=== PATIENT | male | born 1945 | race Caucasian/White ===

== ENCOUNTER 2024-09-29 05:54 | Inpatient (IN) | payer OTHER, SELFPAY ==
[2024-09-29] VITALS (12 sets, daily range): BP systolic 143–203; BP diastolic 77–98; PULSE 63–87; RESP 15–22; TEMP 36.3–36.6; O2SAT 95–100; BMI 31.4
--- NOTE | ~2024-09-29 | MR_ITS ---
EXAMINATION: MR brain/brain stem wo/w con DATE: 09/29/2024 13:59 INDICATION: Unsteady gait TECHNIQUE: Magnetic resonance imaging (MRI) of the brain and brainstem was performed without and with 20 mL Multihance intravenous contrast. Sequences included sagittal and axial T1-weighted SE, axial d iffusion-weighted FS SE, , axial T2-weighted FLAIR, and axial T2-weighted FSE. Postcontrast axial and coronal T1-weighted SE was obtained. Apparent diffusion coefficient (ADC) maps were created. COMPARISON: None. FINDINGS: There are no areas of restricted diffusion to suggest acute infarction. 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 No intracranial hemorr francine or abnormal intracranial mass lesion. There are scattered areas of nonspecific increased T2-weig hted signal intensity in the mark and cerebral white matter, predominantly involving the deep and per iventricular white matter. There are no intraparenchymal signal abnormalities seen on the other pulse sequences. There is symmetric enlargement of the left and right lateral ventricles particularly the occipital horns which is disproportionate to the mild symmetric enlargement of the sulci which could represent central predominant age-related atrophy although differential includes normal pressure hydr ocephalus. There are no abnormal extra-axial fluid collections. Flow voids are seen in the cerebral a rteries on the T2-weighted sequences consistent with their expected patency. Mucosal thickening versu s mucous retention cyst along the floor of both the left and right maxillary sinuses. Visualized orbi ts and soft tissues are unremarkable. There are no areas of abnormal enhancement on the post contrast images. IMPRESSION: 1. 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 2. Symmetric enlargement of the left and right lateral ventricles relative to the sulci which could b e due to central predominant age-related atrophy or normal pressure hydrocephalus (NPH: clinical tria d ataxia/gait disturbance, dementia, urinary incontinence). Reviewed, dictated and finalized at location A. [facility] IMPRESSION: 1. 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 2. Symmetric enlargement of the left and right lateral ventricles relative to t he sulci which could be due to central predominant age-related atrophy or funmi l pressure hydrocephalus (NPH: clinical triad ataxia/gait disturbance, dementia, urinary incontinence).
--- NOTE | ~2024-09-29 | XR_ITS ---
EXAMINATION: XR chest 1V DATE: 09/29/2024 06:25 INDICATION: Fall TECHNIQUE: frontal view of the chest was obtained. COMPARISON: None FINDINGS: Lung volumes are small. Mild airspace opacities scattered throughout both lungs most prominent at the right upper and bilateral lower lung zones which could represent atelectasis or pneumonia. Heart siz e is within normal limits for AP technique. Small calcification projected over the right upper quadra nt which could represent gallstones, cholecystectomy clips or renal stone. There is mild thoracic spo ndylosis. IMPRESSION: 1. Small lung volumes with scattered mild opacities which could represent atelectasis or pneumonia. 2. Gallstone, renal stone or cholecystectomy clips project over the right upper quadrant. Reviewed, dictated and finalized at location A. HANDLER IMPRESSION: 1. Small lung volumes with scattered mild opacities which could represent atele ctasis or pneumonia. 2. Gallstone, renal stone or cholecystectomy clips project over the right upper quadrant.
--- NOTE | ~2024-09-29 | US_ITS ---
EXAMINATION: US renal BI DATE: 09/29/2024 16:32 INDICATION: renal failure TECHNIQUE: Multiple grayscale and Doppler ultrasound images of the kidneys were obtained. COMPARISON: None. FINDINGS: The right kidney measures 9.3 x 4.6 x 4.2 cm. The left kidney measures 11.1 x 5.0 x 4.6 cm. The kidne ys demonstrate normal parenchymal echogenicity. Simple appearing 4.0 cm right upper pole cyst. Simple appearing 1.1 cm left mid/lower pole cyst. There is no hydronephrosis. The bladder is normal. IMPRESSION: Unremarkable renal sonogram findings. Reviewed, dictated and finalized at location [facility] [employer]
--- NOTE | ~2024-09-29 | CT_ITS ---
EXAMINATION: CT brain wo con DATE: 09/29/2024 06:16 INDICATION: Weakness TECHNIQUE: Computed tomography (CT) of the head was performed without intravenous contrast. Sagittal and coronal reconstructions were performed. The mA was adjusted according to patient size. Iterative reconstruction technique was employed. The dose-length product was 983.67 mGy-cm. COMPARISON: None FINDINGS: There are couple small foci of encephalomalacia in the right frontal and parietal lobes consistent wi th old infarcts. No acute intracranial hemorrhage, acute infarction or abnormal extra axial fluid col lection. There is moderate scattered white matter hypoattenuation consistent with chronic small vesse l ischemic disease. Symmetric prominence of the sulci and ventricles consistent with moderate age-alan ropriate diffuse cerebral volume loss. Ventricles are normal and symmetric. No mass/mass effect. The orbits, paranasal sinuses and mastoid air cells are normal. IMPRESSION: 1. 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 2. Age-related changes including moderate diffuse volume loss and moderate scattered white matter hyp oattenuation consistent with chronic small vessel ischemic disease. Reviewed, dictated and finalized at location A. [employer] IMPRESSION: 1. 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 2. Age-related changes including moderate diffuse volume loss and moderate scat tered white matter hypoattenuation consistent with chronic small vessel ischemi c disease.
--- NOTE | 2024-09-29 05:48 | ECG_ITS ---
Test Date: 2024-09-29 05:55:36 Measurements Intervals [place] Rate: 73 P: 43 DC: 196 QRS: -43 QRSD: 169 T: 24 QT: 426 QTc: 473 Interpretive Statements SINUS RHYTHM MARKED LEFT AXIS DEVIATION [QRS AXIS < -30] RIGHT BUNDLE BRANCH BLOCK [120+ ms QRS DURATION, UPRIGHT V1, 40+ ms S IN I/aVL/V4/V5/V6] No previous ECG available for comparison Electronically Signed On 09-29-2024 09:00:20 CLINICAL SUPPORT TECH by Jared Mensah M.D.
--- NOTE | 2024-09-29 05:50 | ED.WEAKNESS ---
HPI - Weakness General Chief complaint: Weakness <Toy Tamayo MD - Last Filed: 09/29/24 07:54> Stated complaint: INCONTINENT X 1, WEAKER THAN NORMAL <Toy Tamayo MD - Last Filed: 09/29/24 07:54> History of Present Illness HPI Narrative: 79-year-old male with a past medical history including dementia, previous TIA versus CVA with reported previous deficits. He has a history of hypertension GERD. On multiple medications for dementia and hypertension. Presents to the emergency department today as he was feeling generalized weakness and more weak than normal. He also had an episode of incontinence while trying to get up to go the bathroom. States he fell down but did not hit his head after the incontinence episode. Not taking any blood thinner medications. No reported unilateral weakness or stroke-like symptoms according to EMS report, NIH stroke scale 0 upon initial assessment by EMS and by myself and nursing staff upon arrival to the ED. patient is awake alert oriented answering all questions appropriately in and as baseline mentation which is A&O x4. He has no evidence of trauma, otherwise appears well not any acute distress. Denies any chest pain, shortness a breath, vision changes. Endorses a mild headache. <Toy Tamayo MD - Last Filed: 09/29/24 07:54> Related Data Allergies/Adverse reactions: Allergies Allergy/AdvReac Type Severity Reaction Status Date / Time No Known Allergies Allergy Verified 09/29/24 06:14 <Toy Tamayo MD - Last Filed: 09/29/24 07:54> Review of Systems Review of Systems: As reviewed above in HPI <Toy Tamayo MD - Last Filed: 09/29/24 07:54> Exam Narrative: GENERAL: [Well-appearing, well-nourished, and in no acute distress.] HEAD: [Normocephalic, atraumatic.] EYES: [PERRLA and EOMI.] ENT: Nares clear, no rhinorrhea or epistaxis. Mucous membranes moist. NECK: Supple. CHEST: [Clear to auscultation. No respiratory distress.] HEART: [Regular rate and rhythm]. No murmur heard. [Normal peripheral pulses.] ABDOMEN: [Soft, nondistended], [nontender], [No rigidity or guarding] EXTREMITIES: Normal range of motion. [No edema.] SKIN: Warm, dry, no rash. NEURO: No facial asymmetries, no ataxia, no mental status changes alert x4, full strength and sensations are both arms, symmetric weakness throughout both legs. Able to plantar and dorsiflex with full strength. Extraocular movements are full, no nystagmus. PSYCH: [Normal mood and affect.] <Toy Tamayo MD - Last Filed: 09/29/24 07:54> Course Vital Signs Vital signs: Vital Signs Temperature 36.6 C 09/29/24 05:41 Pulse Rate 87 09/29/24 05:41 Respiratory Rate 22 H 09/29/24 05:41 Blood Pressure 203/98 H 09/29/24 05:41 Pulse Oximetry 99 09/29/24 05:41 Oxygen Delivery Room Air 09/29/24 05:41 Temperature 36.6 C 09/29/24 05:41 Pulse Rate 79 09/29/24 08:32 Respiratory Rate 16 09/29/24 08:32 Blood Pressure 170/85 H 09/29/24 08:32 Pulse Oximetry 98 09/29/24 08:32 Oxygen Delivery Room Air 09/29/24 05:47 <Toy Tamayo MD - Last Filed: 09/29/24 07:54> Vital Signs Temperature 36.6 C 09/29/24 05:41 Pulse Rate 87 09/29/24 05:41 Respiratory Rate 22 H 09/29/24 05:41 Blood Pressure 203/98 H 09/29/24 05:41 Pulse Oximetry 99 09/29/24 05:41 Oxygen Delivery Room Air 09/29/24 05:41 Temperature 36.6 C 09/29/24 05:41 Pulse Rate 79 09/29/24 08:32 Respiratory Rate 16 09/29/24 08:32 Blood Pressure 170/85 H 09/29/24 08:32 Pulse Oximetry 98 09/29/24 08:32 Oxygen Delivery Room Air 09/29/24 05:47 <Brien Ahumada MD - Last Filed: 09/29/24 09:14> Procedures Pulse Oximetry Interpretation Digit-Finger: Pulse Oximetry Interpretation Date: 09/29/24 <Toy Tamayo MD - Last Filed: 09/29/24 07:54> Pulse Oximetry Interpretation Time: 06:06 <Toy Tamayo MD - Last Filed: 09/29/24 07:54> Initial pulse oximetry readin <Toy Tamayo MD - Last Filed: 09/29/24 07:54> Pulse Oximetry: 100 <Toy Tamayo MD - Last Filed: 09/29/24 07:54> Actions Taken: none <Toy Tamayo MD - Last Filed: 09/29/24 07:54> MDM - Weakness MDM Narrative Medical decision making narrative: This is an 79-year-old male with a history of dementia, hypertension, previous TIA versus CVA. He called EMS today from his assisted living facility for complaint of generalized weakness more than usual and episode of incontinence. He states he was trying to get up to the bathroom and felt more weak and fell to the ground but did not lose consciousness. Incontinence happened on the ground. He denies any back pain, fever, chills, chest pain, shortness a breath. Endorses a mild headache. He is slightly hypertensive in triage vitals at 203/98 but is a history of hypertension did not take his morning medications. Otherwise is well appearing not in acute distress and has been total NIH Stroke Scale of 0. EMS arrival also noted that he had no focal deficits and a fast ED score of 0. He is not tachycardic, hypoxic or febrile. No evidence of trauma on his head neck or extremities. Symmetric breath sounds and well perfused pulses in both arms legs. Overall he has a vague complaint of generalized weakness and his fall but will thoroughly evaluate with CT images of his head, chest x-ray, EKG, CBC, CMP, urinalysis, troponin. He was given fluid bolus. Patient takes losartan and hydralazine at home for blood pressure control. Given a dose of 10 mg IV hydralazine for his elevated blood pressure above 200 systolic. Patient signed out to oncoming ED physician pending completion of workup and CT imaging. <Toy Tamayo MD - Last Filed: 09/29/24 07:54> This is an 79-year-old male with a history of dementia, hypertension, previous TIA versus CVA. He called EMS today from his assisted living facility for complaint of generalized weakness more than usual and episode of incontinence. He states he was trying to get up to the bathroom and felt more weak and fell to the ground but did not lose consciousness. Incontinence happened on the ground. He denies any back pain, fever, chills, chest pain, shortness a breath. Endorses a mild headache. He is slightly hypertensive in triage vitals at 203/98 but is a history of hypertension did not take his morning medications. Otherwise is well appearing not in acute distress and has been total NIH Stroke Scale of 0. EMS arrival also noted that he had no focal deficits and a fast ED score of 0. He is not tachycardic, hypoxic or febrile. No evidence of trauma on his head neck or extremities. Symmetric breath sounds and well perfused pulses in both arms legs. Overall he has a vague complaint of generalized weakness and his fall but will thoroughly evaluate with CT images of his head, chest x-ray, EKG, CBC, CMP, urinalysis, troponin. He was given fluid bolus. Patient takes losartan and hydralazine at home for blood pressure control. Given a dose of 10 mg IV hydralazine for his elevated blood pressure above 200 systolic. Patient signed out to oncoming ED physician pending completion of workup and CT imaging. CT head showed no acute abnormality. Patient reports after ambulation that he is unsteady during an ambulatory trial. Due to this the patient will be admitted for observation for potential MRI <Brien Ahumada MD - Last Filed: 09/29/24 09:14> Medical Records Attestation: I reviewed the patient's medical records. <Toy Tamayo MD - Last Filed: 09/29/24 07:54> Lab Data Attestation: I reviewed the patient's lab results. <Toy Tamayo MD - Last Filed: 09/29/24 07:54> Result diagrams: 09/29/24 05:55 09/29/24 05:55 <Toy Tamayo MD - Last Filed: 09/29/24 07:54> Labs: Lab Results 09/29/24 09/29/24 09/29/24 Range/Units 05:55 06:05 06:27 WBC 5.0 (4.5-10.0) K/mm3 RBC 3.65 L (4.6-6.20) M/mm3 Hgb 11.4 L (14.0-18.0) g/dL Hct 34.4 L (42.0-52.0) % MCV 94.2 (80-100) fl MCH 31.2 (26-34) pg MCHC 33.1 (32-36) g/dl RDW 13.6 (11.5-14.5) % Plt Count 128 L (150-375) k/mm3 MPV 10.5 H (7.4-10.4) fl Immature Gran % (Auto) 0.4 (0-0.5) % Neut % (Auto) 61.2 (45.5-73.1) % Lymph % (Auto) 21.8 (18.3-44.2) % [place] % (Auto) 8.4 (2.6-8.5) % Eos % (Auto) 7.6 H (0-4.4) % Baso % (Auto) 0.6 (0.2-1.2) % Lymph # (Auto) 1.09 (0.9-3.2) K/mm3 [place] # (Auto) 0.4 (0.1-0.6) K/mm3 Eos # (Auto) 0.4 H (0-0.3) K/mm3 Baso # (Auto) 0.0 (0.0-0.1) K/mm3 Abs Immat Gran (auto) 0.02 (0.00-0.031) K/mm3 Absolute Neuts (auto) 3.1 (1.3-6.7) K/mm3 Absolute Nucleated RBC 0.000 (0.0-0.012) K/mm3 Nucleated RBC % 0.0 (0.0-0.2) % PT 14.5 (11.1-14.7) Seconds INR 1.1 APTT 41.1 H (22.3-36.8) Seconds Sodium 138 (137-145) mmol/L Potassium 4.5 (3.4-5.0) mmol/L Chloride 109 H (98-107) mmol/L Carbon Dioxide 25 (22-30) mmol/L Anion Gap 4 (4-12) mmol/L BUN 35 H (9-20) mg/dL Creatinine 2.10 H (0.7-1.3) mg/dL Estim Creat Clear Calc 30 ml/min Estimated GFR 31 L (59 - ) Glucose 110 (65-110) mg/dL Calcium 8.9 (8.4-10.2) mg/dL Total Bilirubin 0.6 (0.2-1.3) mg/dL AST 24 (17-59) U/L ALT 10 (6-50) U/L Alkaline Phosphatase 119 (38-126) U/L Troponin I < 0.012 (0.000-0.034) ng/mL Total Protein 6.0 L (6.3-8.2) g/dL Albumin 4.0 (3.5-5.1) g/dL Urine Color Yellow (Yellow) Urine Appearance Clear (Clear) Urine pH 7.0 (5.0-9.0) Ur Specific [place] 1.009 (1.001-1.035) Urine Protein 2+ H (Negative) mg/dL Urine Glucose (UA) Negative (Negative) mg/dL Urine Ketones Negative (Negative) mg/dL Ur Blood (Man) Negative (Negative) Urine Nitrate Negative (Negative) Urine Bilirubin Negative (Negative) Urine Urobilinogen 0.2 (<2.0) mg/dL Leukocyte Esterase Rfl Negative (Negative) JUSTIN/UL Urine RBC 0-2 (0-2) /hpf Urine WBC 0-5 (0-3) /hpf Ur Squamous Epith Cells None seen (Few) /hpf Urine Bacteria None seen /hpf Urine Casts 0-2 Influenza A (RT-PCR) Negative (Negative) Influenza B (RT-PCR) Negative (Negative) RSV (RT-PCR) Negative (Negative) SARS-CoV-2 RNA (RT-PCR) Negative (Negative) <Toy Tamaoy MD - Last Filed: 09/29/24 07:54> Lab Results 09/29/24 09/29/24 09/29/24 Range/Units 05:55 06:05 06:27 WBC 5.0 (4.5-10.0) K/mm3 RBC 3.65 L (4.6-6.20) M/mm3 Hgb 11.4 L (14.0-18.0) g/dL Hct 34.4 L (42.0-52.0) % MCV 94.2 (80-100) fl MCH 31.2 (26-34) pg MCHC 33.1 (32-36) g/dl RDW 13.6 (11.5-14.5) % Plt Count 128 L (150-375) k/mm3 MPV 10.5 H (7.4-10.4) fl Immature Gran % (Auto) 0.4 (0-0.5) % Neut % (Auto) 61.2 (45.5-73.1) % Lymph % (Auto) 21.8 (18.3-44.2) % [place] % (Auto) 8.4 (2.6-8.5) % Eos % (Auto) 7.6 H (0-4.4) % Baso % (Auto) 0.6 (0.2-1.2) % Lymph # (Auto) 1.09 (0.9-3.2) K/mm3 [place] # (Auto) 0.4 (0.1-0.6) K/mm3 Eos # (Auto) 0.4 H (0-0.3) K/mm3 Baso # (Auto) 0.0 (0.0-0.1) K/mm3 Abs Immat Gran (auto) 0.02 (0.00-0.031) K/mm3 Absolute Neuts (auto) 3.1 (1.3-6.7) K/mm3 Absolute Nucleated RBC 0.000 (0.0-0.012) K/mm3 Nucleated RBC % 0.0 (0.0-0.2) % PT 14.5 (11.1-14.7) Seconds INR 1.1 APTT 41.1 H (22.3-36.8) Seconds Sodium 138 (137-145) mmol/L Potassium 4.5 (3.4-5.0) mmol/L Chloride 109 H (98-107) mmol/L Carbon Dioxide 25 (22-30) mmol/L Anion Gap 4 (4-12) mmol/L BUN 35 H (9-20) mg/dL Creatinine 2.10 H (0.7-1.3) mg/dL Estim Creat Clear Calc 30 ml/min Estimated GFR 31 L (59 - ) Glucose 110 (65-110) mg/dL Calcium 8.9 (8.4-10.2) mg/dL Total Bilirubin 0.6 (0.2-1.3) mg/dL AST 24 (17-59) U/L ALT 10 (6-50) U/L Alkaline Phosphatase 119 (38-126) U/L Troponin I < 0.012 (0.000-0.034) ng/mL Total Protein 6.0 L (6.3-8.2) g/dL Albumin 4.0 (3.5-5.1) g/dL Urine Color Yellow (Yellow) Urine Appearance Clear (Clear) Urine pH 7.0 (5.0-9.0) Ur Specific [place] 1.009 (1.001-1.035) Urine Protein 2+ H (Negative) mg/dL Urine Glucose (UA) Negative (Negative) mg/dL Urine Ketones Negative (Negative) mg/dL Ur Blood (Man) Negative (Negative) Urine Nitrate Negative (Negative) Urine Bilirubin Negative (Negative) Urine Urobilinogen 0.2 (<2.0) mg/dL Leukocyte Esterase Rfl Negative (Negative) JUSTIN/UL Urine RBC 0-2 (0-2) /hpf Urine WBC 0-5 (0-3) /hpf Ur Squamous Epith Cells None seen (Few) /hpf Urine Bacteria None seen /hpf Urine Casts 0-2 Influenza A (RT-PCR) Negative (Negative) Influenza B (RT-PCR) Negative (Negative) RSV (RT-PCR) Negative (Negative) SARS-CoV-2 RNA (RT-PCR) Negative (Negative) <Brien Ahumada MD - Last Filed: 09/29/24 09:14> ECG Data EKG #1: Attestation: I personally reviewed and interpreted this ECG as follows: <Toy Tamayo MD - Last Filed: 09/29/24 07:54> ECG completion date: 09/29/24 <Toy Tamayo MD - Last Filed: 09/29/24 07:54> ECG completion time: 05:55 <Toy Tamayo MD - Last Filed: 09/29/24 07:54> Prior ECG tracings: not available for review <Toy Tamayo MD - Last Filed: 09/29/24 07:54> EKG Interpretation: normal rate, sinus rhythm, no ectopy, no ST changes, RBBB, normal QT and left axis <Toy Tamayo MD - Last Filed: 09/29/24 07:54> Discharge Plan Discharge Clinical Impression: Generalized weakness, Chronic hypertension, Dementia <Toy Tamayo MD - Last Filed: 09/29/24 07:54> Patient Disposition: Still a Patient <Toy Tamayo MD - Last Filed: 09/29/24 07:54> Condition: Stable <Toy Tamayo MD - Last Filed: 09/29/24 07:54> Patient Language: Lithuanian <Toy Tamayo MD - Last Filed: 09/29/24 07:54> Time of Disposition: 09:14 <Toy Tamayo MD - Last Filed: 09/29/24 07:54> 09:14 <Brien Ahumada MD - Last Filed: 09/29/24 09:14>
[2024-09-29] MEDS: SODIUM CHLORIDE 0.9% IV 1,000 ML 999 ML IV CONT (05:53)
[2024-09-29 06:02] LABS: Basophils Percent Auto 0.6 % (0.2-1.2); Eosinophils Absolute Auto 0.4 K/mm3 (0-0.3); Eosinophils Percent Auto 7.6 % (0-4.4); Hematocrit 34.4 % (42.0-52.0); Hemoglobin 11.4 g/dL (14.0-18.0); Immature Granulocyte Absolute 0.02 K/mm3 (0.00-0.031); Immature Granulocyte Percent A 0.4 % (0-0.5); Lymphocytes Absolute Auto 1.09 K/mm3 (0.9-3.2); Lymphocytes Percent Auto 21.8 % (18.3-44.2); Mean Corpuscular HGB Conc 33.1 g/dl (32-36); Mean Corpuscular Hemoglobin 31.2 pg (26-34); Mean Corpuscular Volume 94.2 fl (80-100); Mean Platelet Volume 10.5 fl (7.4-10.4); Monocytes Absolute Auto 0.4 K/mm3 (0.1-0.6); Monocytes Percent Auto 8.4 % (2.6-8.5); Neutrophils Absolute Auto 3.1 K/mm3 (1.3-6.7); Neutrophils Percent Auto 61.2 % (45.5-73.1); Platelet Count Result 128 k/mm3 (150-375); Red Blood Count 3.65 M/mm3 (4.6-6.20); Red Cell Distribution Width 13.6 % (11.5-14.5)
[2024-09-29 06:11] LABS: INR 1.1; Prothrombin Time 14.5 Seconds (11.1-14.7)
[2024-09-29 06:12] LABS: Alanine Aminotransferase 10 U/L (6-50); Alkaline Phosphatase 119 U/L (38-126); Anion Gap 4 mmol/L (4-12); Aspartate Amino Transferase 24 U/L (17-59); Bilirubin,Total 0.6 mg/dL (0.2-1.3); Blood Urea Nitrogen 35 mg/dL (9-20); Calcium 8.9 mg/dL (8.4-10.2); Carbon Dioxide 25 mmol/L (22-30); Chloride 109 mmol/L (98-107); Estimated CRCL calculation 30 ml/min; Estimated Glomerular Filt Rate 31; Glucose 110 mg/dL (65-110); Partial Thromboplastin Time 41.1 Seconds (22.3-36.8); Potassium 4.5 mmol/L (3.4-5.0); Sodium 138 mmol/L (137-145)
[2024-09-29 06:17] LABS: Add Urine Microscopic? YES; Appearance Urine Clear (Clear); Bacteria Urine None Seen /hpf; Bilirubin Urine Negative (Negative); Blood Urine Negative (Negative); Color Urine Yellow (Yellow); Glucose Urine UA Negative (Negative); Ketones Urine Negative (Negative); Leukocyte Esterase Ur Negative LEU/UL (Negative); Nitrate Urine Negative (Negative); Non Pathogenic Casts 0-2; Protein Urine 2+ mg/dL (Negative); RBC Urine 0-2 /hpf (0-2); Specific Grav Ur 1.009 (1.001-1.035); Squamous Epithelial Cell Urine None Seen /hpf (Few); Urobilinogen Urine 0.2 mg/dL (<2.0); WBC Urine 0-5 /hpf (0-3)
[2024-09-29 06:23] LABS: Troponin I < 0.012 ng/mL (0.000-0.034)
[2024-09-29] MEDS: hydrALAZINE HCL 20 MG/ML VIAL 10 MG IV PUSH (06:33)
[2024-09-29] MEDS: Please add drug allergy info to patient profile. 1 EACH XX (06:35)
--- NOTE | 2024-09-29 06:53 | PC.NURSE ---
Pts daughter and POA Marcie [facility] [place] [phone]
[2024-09-29 07:10] LABS: Influenza A QL RT-PCR Negative (Negative); Influenza B QL RT-PCR Negative (Negative); RSV RNA, RT-PCR Negative (Negative); SARS-CoV-2 RNA PCR Negative (Negative)
[2024-09-29 09:35] LABS: Troponin I 0.012 ng/mL (0.000-0.034)
--- NOTE | 2024-09-29 09:46 | PC.NURSE ---
0943 Attempted to call report 0945 Gave update to FENG Schafer at [facility] on pts admission status.
--- NOTE | 2024-09-29 09:49 | PC.NURSE ---
0948 second attempt to call report, no answer rang back to [facility].
--- NOTE | 2024-09-29 10:34 | ADMGEN ---
This patient, Ej Lofton, was admitted to Medical Room 349-01. Patient/family oriented to hospital policies and general routines including ID bracelet, bed and alarms, visiting hours, pain management, procedures, bathroom and other care routines, personal items, smoking policy, room service/diet, and visiting hours. Information on how to activate the Rapid Response Team has been discussed. Patient/Family are encouraged to report perceived risks to care and to ask questions if they do not understand what they are told or what they should do.
--- NOTE | 2024-09-29 15:14 | P.HP_ITS ---
H&P: HPI History of Present Illness Date/Time: 09/29/24 15:14 Chief Complaint: dizziness/fall/weakness Narrative: 79-year-old male with a past medical history including dementia, previous TIA versus CVA with reported previous deficits, htn, gerd presents to the ED with generalized weakness and dizziness. He also had an episode of incontinence while trying to get up to go the bathroom. States he fell down but did not hit his head after the incontinence episode. Not taking any blood thinner medications. No reported unilateral weakness or stroke-like symptoms according to EMS report, NIH stroke scale 0 upon initial assessmentupon arrival to the ED. patient is awake alert oriented answering all questions appropriately in and as baseline mentation which is A&O x4. He has no evidence of trauma, otherwise appears well not any acute distress. Denies any chest pain, shortness a breath, vision changes. Endorses a mild headache.CT head was negative. vitals showed elevated bp on arrival to the ED. CT head ws negative for any acute abnormality. received a dose of iv hydrlaazine with improvement. he is admitted for further evaluation and management patient was still unsteady in the ED and hence getting admitted for futher evaluation. laboratory evaluation showed normal Wbc, normal Hb, creatinine of 2.1, unknown baseline. troponin negative. influenza, rsv, covid swab negative. Review of Systems Review of Systems: - CONSTITUTIONAL: Denies weight loss, fe marek and chills. - HEENT: Denies changes in vision and he aring - RESPIRATORY: Denies SOB and cough. - CV: Denies palpitations and CP. - GI: Denies abdominal pain, nausea, vom iting and diarrhea. - : Denies dysuria and urinary frequen cy. - MSK: Denies myalgia and joint pain. - SKIN: Denies rash and pruritus. - NEUROLOGICAL: Denies headache and sync ope. reports fall and dizziness - PSYCHIATRIC: Denies recent changes in mood. Denies anxiety and depression. All systems reviewed & are unremarkable except as noted in HPI and below Meds Home Medications and Allergies Home Medications ?Medication ?Instructions ?Recorded ?Confirmed ?Type acyclovir 400 mg tablet 400 mg PO .noon 09/29/24 09/29/24 History alprazolam 0.5 mg tablet 0.5 mg PO .q12 09/29/24 09/29/24 History amlodipine 10 mg tablet 10 mg PO .noon 09/29/24 09/29/24 History aspirin 325 mg tablet 325 mg PO .noon 09/29/24 09/29/24 History donepezil 10 mg tablet 10 mg PO HS 09/29/24 09/29/24 History escitalopram oxalate 5 mg tablet 5 mg PO .noon 09/29/24 09/29/24 History finasteride 5 mg tablet 5 mg PO .noon 09/29/24 09/29/24 History hydralazine 50 mg tablet 50 mg PO .COMPLEX 09/29/24 09/29/24 History levothyroxine 25 mcg tablet 25 mcg PO 0630 09/29/24 09/29/24 History lidocaine 5 % topical patch 1 patch transdermal Q24H 09/29/24 09/29/24 History lisinopril 20 mg tablet 20 mg PO .noon 09/29/24 09/29/24 History meclizine 25 mg tablet 25 mg PO TID PRN dizziness 09/29/24 09/29/24 History memantine 5 mg tablet 5 mg PO .noon 09/29/24 09/29/24 History nitroglycerin 0.4 mg sublingual 0.4 mg sublingual Q5M PRN chest 09/29/24 09/29/24 History tablet pain omeprazole 40 mg capsule,delayed 40 mg PO .noon 09/29/24 09/29/24 History release polyethylene glycol 3350 17 17 g PO .noon 09/29/24 09/29/24 History gram/dose oral powder ramelteon 8 mg tablet 8 mg PO HS 09/29/24 09/29/24 History rosuvastatin 20 mg tablet 20 mg PO .noon 09/29/24 09/29/24 History sennosides 8.6 mg-docusate sodium See Rx Instructions PO .COMPLEX 09/29/24 09/29/24 History 50 mg tablet (Stimulant Laxative Plus) tamsulosin 0.4 mg capsule 0.4 mg PO .COMPLEX 09/29/24 09/29/24 History zolpidem 5 mg tablet 5 mg PO HS 09/29/24 09/29/24 History Allergies Allergy/AdvReac Type Severity Reaction Status Date / Time No Known Allergies Allergy Verified 09/29/24 10:32 Vital Signs Vital Signs - 24 hr 09/29/24 05:41 09/29/24 05:47 09/29/24 05:47 Temperature 97.8 F Pulse Rate 87 78 Respiratory Rate 22 H Blood Pressure 203/98 H Pulse Oximetry 99 100 Pulse Oximetry [Digit-Finger] Oxygen Delivery Room Air Room Air 09/29/24 06:08 09/29/24 06:28 09/29/24 06:47 Temperature Pulse Rate 77 76 Respiratory Rate 15 16 Blood Pressure 187/88 H 159/82 H Pulse Oximetry 98 97 Pulse Oximetry [Digit-Finger] 100 Oxygen Delivery 09/29/24 07:44 09/29/24 08:32 09/29/24 09:47 Temperature Pulse Rate 82 79 81 Respiratory Rate 16 16 17 Blood Pressure 163/87 H 170/85 H 143/78 H Pulse Oximetry 96 98 96 Pulse Oximetry [Digit-Finger] Oxygen Delivery Exam Narrative: GENERAL: Well-appearing, well-nourished, and in no acute distress. HEAD: Normocephalic, atraumatic. EYES: PERRLA and EOMI. ENT: Nares clear, no rhinorrhea or epistaxis. Mucous membranes moist. NECK: Supple. CHEST: Clear to auscultation. No respiratory distress. HEART: Regular rate and rhythm. No murmur heard. Normal peripheral pulses. ABDOMEN: Soft, nondistended, nontender, No rigidity or guarding EXTREMITIES: Normal range of motion. No edema. SKIN: Warm, dry, no rash. NEURO: No facial asymmetries, no ataxia, no mental status changes alert x4, full strength and sensations are both arms, symmetric weakness throughout both legs. Able to plantar and dorsiflex with full strength. Extraocular movements are full, no nystagmus. PSYCH: Normal mood and affect. H&P: Results Labs Labs: Short CBC 09/29/24 Range/Units 05:55 WBC 5.0 (4.5-10.0) K/mm3 Hgb 11.4 L (14.0-18.0) g/dL Hct 34.4 L (42.0-52.0) % Plt Count 128 L (150-375) k/mm3 [facility] 09/29/24 05:55 Sodium 138 Potassium 4.5 Chloride 109 H Carbon Dioxide 25 BUN 35 H Creatinine 2.10 H Glucose 110 Calcium 8.9 Cardiac Enzymes 09/29/24 09/29/24 Range/Units 05:55 09:07 Troponin I < 0.012 0.012 (0.000-0.034) ng/mL Liver Function 09/29/24 Range/Units 05:55 Total Bilirubin 0.6 (0.2-1.3) mg/dL AST 24 (17-59) U/L ALT 10 (6-50) U/L Alkaline Phosphatase 119 (38-126) U/L Albumin 4.0 (3.5-5.1) g/dL Urine 09/29/24 Range/Units 06:05 Urine Color Yellow (Yellow) Urine Appearance Clear (Clear) Urine pH 7.0 (5.0-9.0) Ur Specific [place] 1.009 (1.001-1.035) Urine Protein 2+ H (Negative) mg/dL Urine Glucose (UA) Negative (Negative) mg/dL Assessment and Plan Assessment and plan (1) Dementia: Code(s): F03.90 - Unspecified dementia, unspecified severity, without behavioral disturbance, psychotic disturbance, mood disturbance, and anxiety Status: Acute (2) Chronic hypertension: Code(s): I10 - Essential (primary) hypertension Status: Acute (3) Generalized weakness: Code(s): R53.1 - Weakness Status: Acute Plan 79-year-old male with a past medical history including dementia, previous TIA versus CVA with reported previous deficits, htn, gerd presents to the ED with generalized weakness and dizziness. He also had an episode of incontinence while trying to get up to go the bathroom. States he fell down but did not hit his head after the incontinence episode. Not taking any blood thinner medications. No reported unilateral weakness or stroke-like symptoms according to EMS report, NIH stroke scale 0 upon initial assessmentupon arrival to the ED. patient is awake alert oriented answering all questions appropriately in and as baseline mentation which is A&O x4. He has no evidence of trauma, otherwise appears well not any acute distress. Denies any chest pain, shortness a breath, vision changes. Endorses a mild headache.CT head was negative. vitals showed elevated bp on arrival to the ED. CT head ws negative for any acute abnormality. received a dose of iv hydrlaazine with improvement. he is admitted for further evaluation and management patient was still unsteady in the ED and hence getting admitted for futher evaluation. laboratory evaluation showed normal Wbc, normal Hb, creatinine of 2.1, unknown baseline. troponin negative. influenza, rsv, covid swab negative. cxr shwoed Small lung volumes with scattered mild opacities which could represent atelectasis or pneumonia. patient will be elvauted by PT OT and will do MRI to further evlauation. no hx of seizure in the past. neurology will be consulted when available for evaluation of NPH due to gait ataxia, urine incontinence. will check vitamin B12, folate, rpr, vitamin D level. renal insufficiency: cr 2.1. acute vs chronic. no prior levels. will continue to monitor. DVT Proph: heparin sq Code status: full code hx of dementia: htn: resume home medications. hypothyroidism: home meds hlp: home meds bph: on tamsulosin. disposition: PT OT Hospitalist MIPS Advance Care Plan I have confirmed that the patient's Advanced Care Plan is present, code status is documented, or surrogate decision maker is listed in patient medical record.: Yes Medication Reconciliation I have utilized all available resources to obtain, update and review the patients current medications (includes all prescriptions, OTC, herbals, cannabis, and nutritional supplements).: Yes
[2024-09-29] MEDS: lisinopriL 20 MG TABLET PO (17:33)
[2024-09-29] MEDS: TAMSULOSIN HCL 0.4 MG CAPSULE PO (17:33)
[2024-09-29] MEDS: hydrALAZINE HCL 50 MG TABLET PO ×2 (17:33→20:36)
[2024-09-29] MEDS: PANTOPRAZOLE 40 MG TABLET PO (17:33)
[2024-09-29] MEDS: amLODIPine BESYLATE 10 MG TABLET PO (17:34)
[2024-09-29] MEDS: ESCITALOPRAM OXALATE 5 MG TABLET PO (17:34)
[2024-09-29] MEDS: ACYCLOVIR 400 MG TABLET PO (17:34)
[2024-09-29] MEDS: MEMANTINE 5 MG TABLET PO (17:34)
[2024-09-29] MEDS: FINASTERIDE 5 MG TABLET PO (17:34)
[2024-09-29] MEDS: ROSUVASTATIN 20 MG TABLET PO (17:34)
[2024-09-29] MEDS: ASPIRIN 325 MG TABLET PO (17:34)
[2024-09-29] MEDS: LIDOCAINE 5% PATCH 1 PATCH TRANSDERM (17:35)
[2024-09-29] MEDS: polyethylene glycoL 3350 17 GM POWD.PACK PO (17:35)
[2024-09-29] MEDS: SENNA/DOCUSATE SODIUM TABLET 1 TAB PO (17:37)
[2024-09-29] MEDS: ZOLPIDEM TARTRATE (*CRX) 5 MG TABLET PO (20:36)
[2024-09-29] MEDS: DONEPEZIL HCL 10 MG TABLET PO (20:37)
[2024-09-29] MEDS: ALPRAZolam (*CRX) 0.5 MG TABLET PO (20:37)
[2024-09-30] VITALS (9 sets, daily range): BP systolic 120–157; BP diastolic 48–82; PULSE 53–88; RESP 16–18; TEMP 36.3–36.7; O2SAT 97–100
[2024-09-30] MEDS: LEVOTHYROXINE SODIUM 25 MCG TABLET PO (05:36)
[2024-09-30 05:44] LABS: Basophils Percent Auto 0.6 % (0.2-1.2); Eosinophils Absolute Auto 0.4 K/mm3 (0-0.3); Hematocrit 34.8 % (42.0-52.0); Hemoglobin 11.4 g/dL (14.0-18.0); Immature Granulocyte Absolute 0.02 K/mm3 (0.00-0.031); Immature Granulocyte Percent A 0.4 % (0-0.5); Lymphocytes Absolute Auto 1.03 K/mm3 (0.9-3.2); Lymphocytes Percent Auto 20.5 % (18.3-44.2); Mean Corpuscular HGB Conc 32.8 g/dl (32-36); Mean Corpuscular Volume 94.6 fl (80-100); Mean Platelet Volume 10.2 fl (7.4-10.4); Monocytes Absolute Auto 0.5 K/mm3 (0.1-0.6); Monocytes Percent Auto 8.9 % (2.6-8.5); Neutrophils Absolute Auto 3.2 K/mm3 (1.3-6.7); Neutrophils Percent Auto 62.6 % (45.5-73.1); Platelet Count Result 124 k/mm3 (150-375); Red Blood Count 3.68 M/mm3 (4.6-6.20); Red Cell Distribution Width 13.5 % (11.5-14.5)
[2024-09-30 05:53] LABS: Alanine Aminotransferase 9 U/L (6-50); Albumin Level 3.5 g/dL (3.5-5.1); Alkaline Phosphatase 95 U/L (38-126); Anion Gap 3 mmol/L (4-12); Aspartate Amino Transferase 20 U/L (17-59); Bilirubin,Total 0.7 mg/dL (0.2-1.3); Blood Urea Nitrogen 29 mg/dL (9-20); Calcium 8.9 mg/dL (8.4-10.2); Carbon Dioxide 25 mmol/L (22-30); Chloride 109 mmol/L (98-107); Estimated CRCL calculation 30 ml/min; Estimated Glomerular Filt Rate 31; Glucose 104 mg/dL (65-110); Magnesium 1.6 mg/dL (1.6-2.3); Potassium 4.3 mmol/L (3.4-5.0); Sodium 137 mmol/L (137-145)
[2024-09-30] MEDS: SENNA/DOCUSATE SODIUM TABLET 1 TAB PO ×2 (09:15→17:39)
[2024-09-30] MEDS: ALPRAZolam (*CRX) 0.5 MG TABLET PO ×2 (09:15→21:20)
--- NOTE | 2024-09-30 11:19 | PC.NURSE ---
RN gave update to patient's daughter Marcie JUAN on patient status.
[2024-09-30] MEDS: ACYCLOVIR 400 MG TABLET PO (12:56)
[2024-09-30] MEDS: ESCITALOPRAM OXALATE 5 MG TABLET PO (12:56)
[2024-09-30] MEDS: PANTOPRAZOLE 40 MG TABLET PO (12:56)
[2024-09-30] MEDS: FINASTERIDE 5 MG TABLET PO (12:56)
[2024-09-30] MEDS: lisinopriL 20 MG TABLET PO (12:56)
[2024-09-30] MEDS: amLODIPine BESYLATE 10 MG TABLET PO (12:56)
[2024-09-30] MEDS: polyethylene glycoL 3350 17 GM POWD.PACK PO (12:56)
[2024-09-30] MEDS: ROSUVASTATIN 20 MG TABLET PO (12:56)
[2024-09-30] MEDS: ASPIRIN 325 MG TABLET PO (12:56)
[2024-09-30] MEDS: MEMANTINE 5 MG TABLET PO (12:56)
[2024-09-30] MEDS: hydrALAZINE HCL 50 MG TABLET PO ×2 (12:58→21:20)
[2024-09-30] MEDS: TAMSULOSIN HCL 0.4 MG CAPSULE PO ×2 (12:58→17:39)
[2024-09-30 14:10] LABS: Vitamin D 25 Hydroxy 23.8 ng/mL
--- NOTE | 2024-09-30 14:33 | PM.IMPN ---
Progress Note: A&P Assessment and Plan (1) Dementia: Code(s): F03.90 - Unspecified dementia, unspecified severity, without behavioral disturbance, psychotic disturbance, mood disturbance, and anxiety Status: Acute (2) Chronic hypertension: Code(s): I10 - Essential (primary) hypertension Status: Acute (3) Generalized weakness: Code(s): R53.1 - Weakness Status: Acute Plan 79-year-old male with a past medical history including dementia, previous TIA versus CVA with reported previous deficits, htn, gerd presents to the ED with generalized weakness and dizziness. He also had an episode of incontinence while trying to get up to go the bathroom. States he fell down but did not hit his head after the incontinence episode. Not taking any blood thinner medications. No reported unilateral weakness or stroke-like symptoms according to EMS report, NIH stroke scale 0 upon initial assessmentupon arrival to the ED. patient is awake alert oriented answering all questions appropriately in and as baseline mentation which is A&O x4. He has no evidence of trauma, otherwise appears well not any acute distress. Denies any chest pain, shortness a breath, vision changes. Endorses a mild headache.CT head was negative. vitals showed elevated bp on arrival to the ED. CT head ws negative for any acute abnormality. received a dose of iv hydrlaazine with improvement. he is admitted for further evaluation and management patient was still unsteady in the ED and hence getting admitted for futher evaluation. laboratory evaluation showed normal Wbc, normal Hb, creatinine of 2.1, unknown baseline. troponin negative. influenza, rsv, covid swab negative. cxr shwoed Small lung volumes with scattered mild opacities which could represent atelectasis or pneumonia. patient will be elvauted by PT OT. MRI came back negative for stroke. Does have symmetric enlargement of left and right lateral ventricles relative to the sulci which could be due to central predominant age related atrophy or normal pressure hydrocephalus. With history of gait problem along with urine incontinence and dementia how will consult Neurology for further evaluation for possibility of this diagnosis. No hx of seizure in the past. Check vitamin B12, folate, rpr, vitamin D level. renal insufficiency: cr 2.1. acute vs chronic. no prior levels. Renal ultrasound negative. Creatinine remains stable. Likely CKD stage 3 DVT Proph: heparin sq Code status: full code hx of dementia: htn: resume home medications. hypothyroidism: home meds hlp: home meds bph: on tamsulosin. disposition: PT OT Subjective Date/time seen: 09/30/24 14:33 Interval history: No overnight events. Denies any new complaints. Dizziness is improved. Has not ambulated yet. Review of Systems Review of Systems: All systems reviewed & are unremarkable except as noted in HPI and below Exam Narrative: GENERAL: Well-appearing, well-nourished, and in no acute distress. HEAD: Normocephalic, atraumatic. EYES: PERRLA and EOMI. ENT: Nares clear, no rhinorrhea or epistaxis. Mucous membranes moist. NECK: Supple. CHEST: Clear to auscultation. No respiratory distress. HEART: Regular rate and rhythm. No murmur heard. Normal peripheral pulses. ABDOMEN: Soft, nondistended, nontender, No rigidity or guarding EXTREMITIES: Normal range of motion. No edema. SKIN: Warm, dry, no rash. NEURO: No facial asymmetries, no ataxia, no mental status changes alert x4, full strength and sensations are both arms, symmetric weakness throughout both legs. Able to plantar and dorsiflex with full strength. Extraocular movements are full, no nystagmus. PSYCH: Normal mood and affect. Objective Data Vital Signs Vital Signs: Vital Signs - 24 hr 09/29/24 16:00 09/29/24 17:39 09/29/24 20:00 Temperature Pulse Rate 63 Respiratory Rate Blood Pressure Pulse Oximetry Oxygen Delivery Room Air Room Air 09/29/24 20:00 09/29/24 20:28 09/30/24 00:00 Temperature 97.3 F L Pulse Rate 64 72 67 Respiratory Rate 20 Blood Pressure 157/77 H Pulse Oximetry 98 Oxygen Delivery 09/30/24 04:00 09/30/24 06:00 09/30/24 08:00 Temperature 97.5 F L Pulse Rate 67 66 64 Respiratory Rate 16 Blood Pressure 157/82 H Pulse Oximetry 97 Oxygen Delivery 09/30/24 09:15 09/30/24 14:00 Temperature 98.1 F Pulse Rate 88 Respiratory Rate 18 Blood Pressure 120/48 L Pulse Oximetry 100 Oxygen Delivery Room Air Intake/Output Intake/Output: Intake & Output 09/27/24 09/28/24 09/29/24 09/30/24 23:59 23:59 23:59 23:59 Intake Total 1720 700 Output Total 900 400 Balance 820 300 Meds/Results Medications: Active Medications Generic Name Dose Route Start Last Admin Trade Name Delvin PRN Reason Stop Dose Admin Acyclovir 400 mg 09/29/24 15:30 09/30/24 12:56 Acyclovir 400 Mg Tablet PO 400 mg NOON DMITRIY Administration Alprazolam 0.5 mg 09/29/24 21:00 09/30/24 09:15 Alprazolam (*Crx) 0.5 Mg Tablet PO 0.5 mg Q12HR DMITRIY Administration Amlodipine Besylate 10 mg 09/29/24 15:30 09/30/24 12:56 Amlodipine Besylate 10 Mg Tablet PO 10 mg NOON DMITRIY Administration Aspirin 325 mg 09/29/24 15:30 09/30/24 12:56 Aspirin 325 Mg Tablet PO 325 mg NOON DMITRIY Administration Donepezil HCl 10 mg 09/29/24 21:00 09/29/24 20:37 Donepezil Hcl 10 Mg Tablet PO 10 mg HS DMIRTIY Administration Escitalopram Oxalate 5 mg 09/29/24 15:30 09/30/24 12:56 Escitalopram Oxalate 5 Mg Tablet PO 5 mg NOON DMITRIY Administration Finasteride 5 mg 09/29/24 15:30 09/30/24 12:56 Finasteride 5 Mg Tablet PO 5 mg NOON DMITRIY Administration Hydralazine HCl 50 mg 09/29/24 16:00 09/30/24 12:58 Hydralazine Hcl 50 Mg Tablet PO 50 mg 1200,1600,2000 DMITRIY Administration Levothyroxine Sodium 25 mcg 09/30/24 06:30 09/30/24 05:36 Levothyroxine Sodium 25 Mcg Tablet PO 25 mcg DAILY@0630 DMITRIY Administration Lidocaine 1 patch 09/29/24 15:30 09/29/24 17:35 Lidocaine 5% Patch TRANSDERM 1 patch Q24H DMITRIY Administration Lisinopril 20 mg 09/29/24 15:30 09/30/24 12:56 Lisinopril 20 Mg Tablet PO 20 mg NOON DMITRIY Administration Meclizine HCl 25 mg 09/29/24 15:25 Meclizine Hcl 25 Mg Tablet PO TID PRN dizziness Memantine 5 mg 09/29/24 15:30 09/30/24 12:56 Memantine 5 Mg Tablet PO 5 mg NOON DMITRIY Administration Nitroglycerin 0.4 mg 09/29/24 15:25 Nitroglycerin Sl 0.4 Mg Tablet SUBLINGUAL Q5MIN PRN chest pain Pantoprazole Sodium 40 mg 09/29/24 15:30 09/30/24 12:56 Pantoprazole 40 Mg Tablet PO 40 mg NOON DMITRIY Administration Polyethylene Glycol 17 gm 09/29/24 15:30 09/30/24 12:56 Polyethylene Glycol 3350 17 Gm Powd.Pack PO 17 gm NOON DMITRIY Administration Rosuvastatin Calcium 20 mg 09/29/24 15:30 09/30/24 12:56 Rosuvastatin 20 Mg Tablet PO 20 mg NOON DMITRIY Administration Senna/Docusate Sodium 1 tab 09/29/24 16:00 09/30/24 09:15 Senna/Docusate Sodium Tablet PO 1 tab 1000,1600 DMITRIY Administration Tamsulosin HCl 0.4 mg 09/29/24 16:00 09/30/24 12:58 Tamsulosin Hcl 0.4 Mg Capsule PO 0.4 mg 1200,1600 DMITRIY Administration Zolpidem Tartrate 5 mg 09/29/24 21:00 09/29/24 20:36 Zolpidem Tartrate (*Crx) 5 Mg Tablet PO 5 mg HS DMITRIY Administration Radiology Results: ITS Impressions Head CT 09/29/24 08:24 IMPRESSION: 1. 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 2. Age-related changes including moderate diffuse volume loss and moderate scattered white matter hypoattenuation consistent with chronic small vessel ischemic disease. Chest X-Ray 09/29/24 09:05 IMPRESSION: 1. Small lung volumes with scattered mild opacities which could represent atelectasis or pneumonia. 2. Gallstone, renal stone or cholecystectomy clips project over the right upper quadrant. Brain MRI 09/29/24 14:07 IMPRESSION: 1. 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 2. Symmetric enlargement of the left and right lateral ventricles relative to the sulci which could be due to central predominant age-related atrophy or normal pressure hydrocephalus (NPH: clinical triad ataxia/gait disturbance, dementia, urinary incontinence). Renal Ultrasound 09/29/24 16:35 IMPRESSION: Unremarkable renal sonogram findings. Labs Labs: Laboratory Results - last 24 hr 09/30/24 09/30/24 05:34 05:36 WBC 5.0 RBC 3.68 L Hgb 11.4 L Hct 34.8 L MCV 94.6 MCH 31.0 MCHC 32.8 RDW 13.5 Plt Count 124 L MPV 10.2 Immature Gran % (Auto) 0.4 Neut % (Auto) 62.6 Lymph % (Auto) 20.5 [place] % (Auto) 8.9 H Eos % (Auto) 7.0 H Baso % (Auto) 0.6 Lymph # (Auto) 1.03 [place] # (Auto) 0.5 Eos # (Auto) 0.4 H Baso # (Auto) 0.0 Abs Immat Gran (auto) 0.02 Absolute Neuts (auto) 3.2 Absolute Nucleated RBC 0.000 Nucleated RBC % 0.0 Sodium 137 Potassium 4.3 Chloride 109 H Carbon Dioxide 25 Anion Gap 3 L BUN 29 H Creatinine 2.10 H Estim Creat Clear Calc 30 Estimated GFR 31 L Glucose 104 Calcium 8.9 Magnesium 1.6 Total Bilirubin 0.7 AST 20 ALT 9 Alkaline Phosphatase 95 Total Protein 6.0 L Albumin 3.5 Vitamin D 25-Hydroxy 23.8 TSH (Reflex) 1.910
[2024-09-30 15:05] LABS: Folic Acid 10.2 ng/mL (2.76->20)
[2024-09-30] MEDS: LIDOCAINE 5% PATCH 1 PATCH TRANSDERM (17:40)
[2024-09-30] MEDS: ZOLPIDEM TARTRATE (*CRX) 5 MG TABLET PO (21:20)
[2024-09-30] MEDS: HEPARIN SODIUM 5,000 UNITS/ML VIAL 5000 UNITS SUB-Q (21:20)
[2024-09-30] MEDS: DONEPEZIL HCL 10 MG TABLET PO (21:20)
[2024-10-01] VITALS (9 sets, daily range): BP systolic 147–163; BP diastolic 53–75; PULSE 56–596; RESP 16–18; TEMP 36.2–36.6; O2SAT 95–96
[2024-10-01] MEDS: LEVOTHYROXINE SODIUM 25 MCG TABLET PO (06:02)
[2024-10-01 07:25] LABS: Rapid Plasma Reagin Non-Reactive (NonReactive)
[2024-10-01] MEDS: SENNA/DOCUSATE SODIUM TABLET 1 TAB PO ×2 (09:21→17:16)
[2024-10-01] MEDS: ALPRAZolam (*CRX) 0.5 MG TABLET PO ×2 (09:21→20:50)
--- NOTE | 2024-10-01 11:59 | PM.IMPN ---
Progress Note: A&P Assessment and Plan (1) Dementia: Code(s): F03.90 - Unspecified dementia, unspecified severity, without behavioral disturbance, psychotic disturbance, mood disturbance, and anxiety Status: Acute (2) Chronic hypertension: Code(s): I10 - Essential (primary) hypertension Status: Acute (3) Generalized weakness: Code(s): R53.1 - Weakness Status: Acute Plan 79-year-old male with a past medical history including dementia, previous TIA versus CVA with reported previous deficits, htn, gerd presents to the ED with generalized weakness and dizziness. He also had an episode of incontinence while trying to get up to go the bathroom. States he fell down but did not hit his head after the incontinence episode. Not taking any blood thinner medications. No reported unilateral weakness or stroke-like symptoms according to EMS report, NIH stroke scale 0 upon initial assessmentupon arrival to the ED. patient is awake alert oriented answering all questions appropriately in and as baseline mentation which is A&O x4. He has no evidence of trauma, otherwise appears well not any acute distress. Denies any chest pain, shortness a breath, vision changes. Endorses a mild headache.CT head was negative. vitals showed elevated bp on arrival to the ED. CT head ws negative for any acute abnormality. received a dose of iv hydrlaazine with improvement. he is admitted for further evaluation and management patient was still unsteady in the ED and hence getting admitted for futher evaluation. laboratory evaluation showed normal Wbc, normal Hb, creatinine of 2.1, unknown baseline. troponin negative. influenza, rsv, covid swab negative. cxr shwoed Small lung volumes with scattered mild opacities which could represent atelectasis or pneumonia. patient will be elvauted by PT OT. MRI came back negative for stroke. Does have symmetric enlargement of left and right lateral ventricles relative to the sulci which could be due to central predominant age related atrophy or normal pressure hydrocephalus. With history of gait problem along with urine incontinence and dementia how will consult Neurology for further evaluation for possibility of this diagnosis. No hx of seizure in the past. Vitamin B12 low normal. Check MMA. Vitamin D low RPR negative. TSH normal. Await neurology evaluation. Disposition per PT OT may need SNF placement renal insufficiency: cr 2.1. acute vs chronic. no prior levels. Renal ultrasound negative. Creatinine remains stable. Likely CKD stage 3 DVT Proph: heparin sq Code status: full code hx of dementia: htn: resume home medications. hypothyroidism: home meds hlp: home meds bph: on tamsulosin. disposition: PT OT may need SNF placement Subjective Date/time seen: 10/01/24 11:59 Interval history: No overnight events. Denies any new complaints. Dizziness is improved. No headaches. Worked with therapy today Review of Systems Review of Systems: All systems reviewed & are unremarkable except as noted in HPI and below Exam Narrative: GENERAL: Well-appearing, well-nourished, and in no acute distress. HEAD: Normocephalic, atraumatic. EYES: PERRLA and EOMI. ENT: Nares clear, no rhinorrhea or epistaxis. Mucous membranes moist. NECK: Supple. CHEST: Clear to auscultation. No respiratory distress. HEART: Regular rate and rhythm. No murmur heard. Normal peripheral pulses. ABDOMEN: Soft, nondistended, nontender, No rigidity or guarding EXTREMITIES: Normal range of motion. No edema. SKIN: Warm, dry, no rash. NEURO: No facial asymmetries, no ataxia, no mental status changes alert x4, full strength and sensations are both arms, symmetric weakness throughout both legs. Able to plantar and dorsiflex with full strength. Extraocular movements are full, no nystagmus. PSYCH: Normal mood and affect. Objective Data Vital Signs Vital Signs: Vital Signs - 24 hr 09/30/24 12:00 09/30/24 14:00 09/30/24 16:00 Temperature 98.1 F Pulse Rate 53 L 88 61 Respiratory Rate 18 Blood Pressure 120/48 L Pulse Oximetry 100 Oxygen Delivery 09/30/24 20:00 09/30/24 20:00 09/30/24 20:49 Temperature 97.3 F L Pulse Rate 75 60 Respiratory Rate 16 Blood Pressure 149/68 H Pulse Oximetry 98 Oxygen Delivery Room Air 10/01/24 00:00 10/01/24 04:00 10/01/24 04:50 Temperature 97.8 F Pulse Rate 57 L 94 64 Respiratory Rate 18 Blood Pressure 154/72 H Pulse Oximetry 96 Oxygen Delivery 10/01/24 08:52 10/01/24 09:46 10/01/24 09:46 Temperature Pulse Rate 56 L Respiratory Rate Blood Pressure Pulse Oximetry Oxygen Delivery Room Air Room Air 10/01/24 10:12 Temperature Pulse Rate Respiratory Rate Blood Pressure Pulse Oximetry Oxygen Delivery Room Air Intake/Output Intake/Output: Intake & Output 09/28/24 09/29/24 09/30/24 10/01/24 23:59 23:59 23:59 23:59 Intake Total 1720 1468 390 Output Total 900 1000 500 Balance 820 468 -110 Meds/Results Medications: Active Medications Generic Name Dose Route Start Last Admin Trade Name Delvin PRN Reason Stop Dose Admin Acyclovir 400 mg 09/29/24 15:30 09/30/24 12:56 Acyclovir 400 Mg Tablet PO 400 mg NOON REPLACED BY [facility] Administration Alprazolam 0.5 mg 09/29/24 21:00 10/01/24 09:21 Alprazolam (*Crx) 0.5 Mg Tablet PO 0.5 mg Q12HR REPLACED BY [facility] Administration Amlodipine Besylate 10 mg 09/29/24 15:30 09/30/24 12:56 Amlodipine Besylate 10 Mg Tablet PO 10 mg NOON REPLACED BY [facility] Administration Aspirin 325 mg 09/29/24 15:30 09/30/24 12:56 Aspirin 325 Mg Tablet PO 325 mg NOON REPLACED BY [facility] Administration Donepezil HCl 10 mg 09/29/24 21:00 09/30/24 21:20 Donepezil Hcl 10 Mg Tablet PO 10 mg HS REPLACED BY [facility] Administration Escitalopram Oxalate 5 mg 09/29/24 15:30 09/30/24 12:56 Escitalopram Oxalate 5 Mg Tablet PO 5 mg NOON REPLACED BY [facility] Administration Finasteride 5 mg 09/29/24 15:30 09/30/24 12:56 Finasteride 5 Mg Tablet PO 5 mg NOON REPLACED BY [facility] Administration Heparin Sodium (Porcine) 5,000 units 09/30/24 21:00 10/01/24 09:24 Heparin Sodium 5,000 Units/Ml Vial SUB-Q Not Given Q12HR REPLACED BY [facility] Hydralazine HCl 50 mg 09/29/24 16:00 09/30/24 21:20 Hydralazine Hcl 50 Mg Tablet PO 50 mg 1200,1600,2000 REPLACED BY [facility] Administration Levothyroxine Sodium 25 mcg 09/30/24 06:30 10/01/24 06:02 Levothyroxine Sodium 25 Mcg Tablet PO 25 mcg DAILY@0630 REPLACED BY [facility] Administration Lidocaine 1 patch 09/29/24 15:30 09/30/24 17:40 Lidocaine 5% Patch TRANSDERM 1 patch Q24H DMITRIY Administration Lisinopril 20 mg 09/29/24 15:30 09/30/24 12:56 Lisinopril 20 Mg Tablet PO 20 mg NOON DMITRIY Administration Meclizine HCl 25 mg 09/29/24 15:25 Meclizine Hcl 25 Mg Tablet PO TID PRN dizziness Memantine 5 mg 09/29/24 15:30 09/30/24 12:56 Memantine 5 Mg Tablet PO 5 mg NOON DMITRIY Administration Nitroglycerin 0.4 mg 09/29/24 15:25 Nitroglycerin Sl 0.4 Mg Tablet SUBLINGUAL Q5MIN PRN chest pain Pantoprazole Sodium 40 mg 09/29/24 15:30 09/30/24 12:56 Pantoprazole 40 Mg Tablet PO 40 mg NOON DMITRIY Administration Polyethylene Glycol 17 gm 09/29/24 15:30 09/30/24 12:56 Polyethylene Glycol 3350 17 Gm Powd.Pack PO 17 gm NOON DMITRIY Administration Rosuvastatin Calcium 20 mg 09/29/24 15:30 09/30/24 12:56 Rosuvastatin 20 Mg Tablet PO 20 mg NOON DMITRIY Administration Senna/Docusate Sodium 1 tab 09/29/24 16:00 10/01/24 09:21 Senna/Docusate Sodium Tablet PO 1 tab 1000,1600 DMITRIY Administration Tamsulosin HCl 0.4 mg 09/29/24 16:00 09/30/24 17:39 Tamsulosin Hcl 0.4 Mg Capsule PO 0.4 mg 1200,1600 DMITRIY Administration Zolpidem Tartrate 5 mg 09/29/24 21:00 09/30/24 21:20 Zolpidem Tartrate (*Crx) 5 Mg Tablet PO 5 mg HS DMITRIY Administration Radiology Results: ITS Impressions Head CT 09/29/24 08:24 IMPRESSION: 1. 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 2. Age-related changes including moderate diffuse volume loss and moderate scattered white matter hypoattenuation consistent with chronic small vessel ischemic disease. Chest X-Ray 09/29/24 09:05 IMPRESSION: 1. Small lung volumes with scattered mild opacities which could represent atelectasis or pneumonia. 2. Gallstone, renal stone or cholecystectomy clips project over the right upper quadrant. Brain MRI 09/29/24 14:07 IMPRESSION: 1. 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 2. Symmetric enlargement of the left and right lateral ventricles relative to the sulci which could be due to central predominant age-related atrophy or normal pressure hydrocephalus (NPH: clinical triad ataxia/gait disturbance, dementia, urinary incontinence). Renal Ultrasound 09/29/24 16:35 IMPRESSION: Unremarkable renal sonogram findings. Labs Labs: Laboratory Results - last 24 hr 09/30/24 05:34 Vitamin B12 244.0 Vitamin D 25-Hydroxy 23.8 Folate 10.2 TSH (Reflex) 1.910 RPR Non-reactive
[2024-10-01] MEDS: ROSUVASTATIN 20 MG TABLET PO (12:22)
[2024-10-01] MEDS: ASPIRIN 325 MG TABLET PO (12:22)
[2024-10-01] MEDS: MEMANTINE 5 MG TABLET PO (12:23)
[2024-10-01] MEDS: amLODIPine BESYLATE 10 MG TABLET PO (12:23)
[2024-10-01] MEDS: ESCITALOPRAM OXALATE 5 MG TABLET PO (12:23)
[2024-10-01] MEDS: hydrALAZINE HCL 50 MG TABLET PO ×3 (12:23→20:50)
[2024-10-01] MEDS: lisinopriL 20 MG TABLET PO (12:23)
[2024-10-01] MEDS: PANTOPRAZOLE 40 MG TABLET PO (12:23)
[2024-10-01] MEDS: FINASTERIDE 5 MG TABLET PO (12:23)
[2024-10-01] MEDS: ACYCLOVIR 400 MG TABLET PO (12:23)
[2024-10-01] MEDS: TAMSULOSIN HCL 0.4 MG CAPSULE PO ×2 (12:23→17:16)
[2024-10-01] MEDS: LIDOCAINE 5% PATCH 1 PATCH TRANSDERM (17:16)
--- NOTE | 2024-10-01 18:29 | P.CONNEU_ITS ---
Assessment and Plan Assessment and plan (1) Normal pressure hydrocephalus: Code(s): G91.2 - (Idiopathic) normal pressure hydrocephalus Status: Acute (2) Dementia: Code(s): F03.90 - Unspecified dementia, unspecified severity, without behavioral disturbance, psychotic disturbance, mood disturbance, and anxiety Status: Acute Plan the appearance of the ventricles on the CT scan is somewhat more impressive for normal pressure hydrocephalus than even on MRI scan. However he has been D condition for some time and I do not know whether [employer]NAGER shunt will help or not. This requires possible a trial of large volume tap and see whether he improves or not. 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 Incontinence and is gait are the main problems and these 2 things sometimes do improve however the discussion must take place within the family members in the patient and neurosurgeon. Sometimes a large volume tap or a short-term lumbar peritoneal shunt can be attempted in the meanwhile a course of physical therapy would be helpful. Glad to discuss this further with you. His vitamin B12 level is low and a vitamin-D level is also low and supplementation of these may help his he platelet count is 124 creatinine is high 2.1 attention to all the metabolic problem may also help. Consult date: 10/01/24 HPI: Ej Lofton is a 79 year old male With history of memory loss and ataxia and incontinence of urine and possible normal pressure hydrocephalus for neurological evaluation. Patient today admits to having some difficulty with memory but mostly with ambulation. He states that I should ask his and daughter about his condition since he is not able to tell me very much else. Family members were not available at the time of this evaluation. I reviewed the records and also talked to the nursing staff. He has a CT scan of the brain as well as MRI of the brain were available and these were reviewed. Serum B12 level was slightly low at 244 and vitamin-D was low at 23. Platelet count 124. . Pre creatinine was slightly high 2.1 and GFR was low at 31. MRI shows enlarged ventricles and white matter changes bilaterally right more than left side. Patient lives his . 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 He is right-handed. He denies any hallucinations. He does feel somewhat depressed. He thinks he requires assistance with many of the activities daily living at home. Review of Systems 2 Review of Systems: Patient was admitted to the hospital with incontinence of urine and generalized weakness. He also has mild headache. No nausea vomiting. No diplopia. He denies any specific weakness in upper lower limbs. He denies any paresthesias in the lower limbs. All systems reviewed & are unremarkable except as noted in HPI and below PMFSH Past Medical History Medical History (Updated 10/01/24 @ 18:35 by Vic Carias MD) Normal pressure hydrocephalus Social History Social History Smoking status: Never smoker Alcohol intake: never Substance use: former Do You Feel Safe in your Home?: No Lack of Transportation: No Lack of Food: Never True Current Housing: Decline to Answer Concerned About Future Housing: Decline to Answer Difficulty Paying Gas/Electric Bills: Decline to Answer Difficulty Paying for Meds: Decline to Answer Currently Unemployed: Decline to Answer Education: Decline to Answer Difficulty w/ Childcare or Family Care: Decline to Answer Spiritual care concerns: No Meds Home Medications and Allergies Home Medications ?Medication ?Instructions ?Recorded ?Confirmed ?Type acyclovir 400 mg tablet 400 mg PO .noon 09/29/24 09/29/24 History alprazolam 0.5 mg tablet 0.5 mg PO .q12 09/29/24 09/29/24 History amlodipine 10 mg tablet 10 mg PO .noon 09/29/24 09/29/24 History aspirin 325 mg tablet 325 mg PO .noon 09/29/24 09/29/24 History donepezil 10 mg tablet 10 mg PO HS 09/29/24 09/29/24 History escitalopram oxalate 5 mg tablet 5 mg PO .noon 09/29/24 09/29/24 History finasteride 5 mg tablet 5 mg PO .noon 09/29/24 09/29/24 History hydralazine 50 mg tablet 50 mg PO .COMPLEX 09/29/24 09/29/24 History levothyroxine 25 mcg tablet 25 mcg PO 0630 09/29/24 09/29/24 History lidocaine 5 % topical patch 1 patch transdermal Q24H 09/29/24 09/29/24 History lisinopril 20 mg tablet 20 mg PO .noon 09/29/24 09/29/24 History meclizine 25 mg tablet 25 mg PO TID PRN dizziness 09/29/24 09/29/24 History memantine 5 mg tablet 5 mg PO .noon 09/29/24 09/29/24 History nitroglycerin 0.4 mg sublingual 0.4 mg sublingual Q5M PRN chest 09/29/24 09/29/24 History tablet pain omeprazole 40 mg capsule,delayed 40 mg PO .noon 09/29/24 09/29/24 History release polyethylene glycol 3350 17 17 g PO .noon 09/29/24 09/29/24 History gram/dose oral powder ramelteon 8 mg tablet 8 mg PO HS 09/29/24 09/29/24 History rosuvastatin 20 mg tablet 20 mg PO .noon 09/29/24 09/29/24 History sennosides 8.6 mg-docusate sodium See Rx Instructions PO .COMPLEX 09/29/24 09/29/24 History 50 mg tablet (Stimulant Laxative Plus) tamsulosin 0.4 mg capsule 0.4 mg PO .COMPLEX 09/29/24 09/29/24 History zolpidem 5 mg tablet 5 mg PO HS 09/29/24 09/29/24 History Allergies Allergy/AdvReac Type Severity Reaction Status Date / Time No Known Allergies Allergy Verified 09/29/24 10:32 Vital Signs Vital Signs - 24 hr 09/30/24 20:00 09/30/24 20:00 09/30/24 20:49 Temperature 97.3 F L Pulse Rate 75 60 Respiratory Rate 16 Blood Pressure 149/68 H Pulse Oximetry 98 Oxygen Delivery Room Air 10/01/24 00:00 10/01/24 04:00 10/01/24 04:50 Temperature 97.8 F Pulse Rate 57 L 94 64 Respiratory Rate 18 Blood Pressure 154/72 H Pulse Oximetry 96 Oxygen Delivery 10/01/24 08:52 10/01/24 09:46 10/01/24 09:46 Temperature Pulse Rate 56 L Respiratory Rate Blood Pressure Pulse Oximetry Oxygen Delivery Room Air Room Air 10/01/24 10:12 10/01/24 12:34 10/01/24 14:32 Temperature 97.2 F L Pulse Rate 59 L Respiratory Rate 16 Blood Pressure 151/75 H 147/53 H Pulse Oximetry 95 Oxygen Delivery Room Air 10/01/24 16:00 Temperature Pulse Rate 596 H Respiratory Rate Blood Pressure Pulse Oximetry Oxygen Delivery Exam 2 Narrative: Fully conscious alert oriented able to name 5 cities and 5 colors and 5 restaurants without any problem. No aphasia or dysarthria. Three object recall was also 3/3 on a 2nd trial however on the 1st trial for got all 3 words. He is able to follow 1 and two-step commands. His attention span is fair. patient is cooperative. Examination head and neck shows no evidence of external trauma. No carotid bruit. Cranial nerves pupils were equal reacting. Visual motta by confrontation are normal. There is no facial asymmetry. Tongue was midline. Other cranial nerves are normal limits. Motor system normal power and tone in both upper lower limbs. Deep tendon reflexes did not show any asymmetry. These were generally decreased at knees and ankles. Plantars were downgoing. No cogwheeling or involuntary movements. I attempted to have him walk the help of the nursing staff but it was very difficult for him to walk even with a walker he did manage to walk short distance with a walker but need to watch carefully. Results Labs 09/30/24 05:36 09/30/24 05:36
[2024-10-01] MEDS: HEPARIN SODIUM 5,000 UNITS/ML VIAL 5000 UNITS SUB-Q (20:50)
[2024-10-01] MEDS: DONEPEZIL HCL 10 MG TABLET PO (20:50)
[2024-10-01] MEDS: ZOLPIDEM TARTRATE (*CRX) 5 MG TABLET PO (20:50)
[2024-10-02] VITALS: PULSE 69
[2024-10-02 04:00] VITALS: PULSE 80
[2024-10-02 04:23] VITALS: BP 152/67; PULSE 72; RESP 16; TEMP 36.6; O2SAT 98
[2024-10-02] MEDS: LEVOTHYROXINE SODIUM 25 MCG TABLET PO (05:32)
[2024-10-02] MEDS: CYANOCOBALAMIN INJ 1,000 MCG/ML VIAL 1000 MCG IM (10:47)
[2024-10-02] MEDS: ALPRAZolam (*CRX) 0.5 MG TABLET PO (10:47)
[2024-10-02] MEDS: SENNA/DOCUSATE SODIUM TABLET 1 TAB PO (10:47)
[2024-10-02 12:00] VITALS: PULSE 106
[2024-10-02] MEDS: ESCITALOPRAM OXALATE 10 MG TABLET PO (13:25)
[2024-10-02] MEDS: ACYCLOVIR 400 MG TABLET PO (13:25)
[2024-10-02] MEDS: ROSUVASTATIN 20 MG TABLET PO (13:25)
[2024-10-02] MEDS: MEMANTINE 5 MG TABLET PO (13:25)
[2024-10-02] MEDS: PANTOPRAZOLE 40 MG TABLET PO (13:25)
[2024-10-02] MEDS: FINASTERIDE 5 MG TABLET PO (13:25)
[2024-10-02] MEDS: TAMSULOSIN HCL 0.4 MG CAPSULE PO (13:25)
[2024-10-02] MEDS: ASPIRIN 325 MG TABLET PO (13:25)
[2024-10-02] MEDS: amLODIPine BESYLATE 10 MG TABLET PO (13:26)
[2024-10-02] MEDS: hydrALAZINE HCL 50 MG TABLET PO (13:26)
[2024-10-02] MEDS: lisinopriL 20 MG TABLET PO (13:26)
[2024-10-02 13:29] VITALS: BP 126/67
[2024-10-02 14:00] VITALS: BP 113/68; PULSE 68; RESP 16; TEMP 36.1; O2SAT 97
--- NOTE | 2024-10-02 14:15 | PM.DS ---
DS: Admitting Diagnosis Discharge Date 10/02/2024 Admitting Diagnosis Fall DS: Discharge Diagnosis Discharge Diagnosis (1) Dementia: Code(s): F03.90 - Unspecified dementia, unspecified severity, without behavioral disturbance, psychotic disturbance, mood disturbance, and anxiety Status: Acute (2) Chronic hypertension: Code(s): I10 - Essential (primary) hypertension Status: Acute (3) Generalized weakness: Code(s): R53.1 - Weakness Status: Acute DS: Summary Hospital Course Hospital Course: 79-year-old male with a past medical history including dementia, previous TIA versus CVA with reported previous deficits, htn, gerd presents to the ED with generalized weakness and dizziness. He also had an episode of incontinence while trying to get up to go the bathroom. States he fell down but did not hit his head after the incontinence episode. Not taking any blood thinner medications. No reported unilateral weakness or stroke-like symptoms according to EMS report, NIH stroke scale 0 upon initial assessment upon arrival to the ED. patient is awake alert oriented answering all questions appropriately in and as baseline mentation which is A&O x4. He has no evidence of trauma, otherwise appears well not any acute distress. Denies any chest pain, shortness a breath, vision changes. Endorses a mild headache.CT head was negative. vitals showed elevated bp on arrival to the ED. CT head ws negative for any acute abnormality. received a dose of iv hydralazine with improvement. he is admitted for further evaluation and management patient was still unsteady in the ED and hence getting admitted for further evaluation. laboratory evaluation showed normal Wbc, normal Hb, creatinine of 2.1, unknown baseline. troponin negative. influenza, rsv, covid swab negative. cxr showed Small lung volumes with scattered mild opacities which could represent atelectasis or pneumonia. patient was elvauted by PT OT. MRI came back negative for stroke. Does have symmetric enlargement of left and right lateral ventricles relative to the sulci which could be due to central predominant age related atrophy or normal pressure hydrocephalus. With history of gait problem along with urine incontinence and dementia. After discussion with his daughter he apparently had lumbar puncture performed and hospitalization notes were reviewed. per report, He did not made a remarkable improvement after large volume lumbar puncture. He also saw Neurosurgery at that point would deferred COMPLETIONS MANAGER shunt placement at that time. Discussed these findings with the daughter and advised to follow-up with neurology/neurosurgery to continue the discussion. No hx of seizure in the past. Vitamin B12 low normal. Check MMA which is pending. Empirically start vitamin B12 supplementation. Vitamin D low RPR negative. TSH normal. renal insufficiency: cr 2.1. acute vs chronic. no prior levels. Renal ultrasound negative. Creatinine remains stable. Likely CKD stage 3 DVT Proph: heparin sq Code status: full code hx of dementia: htn: resume home medications. hypothyroidism: home meds hlp: home meds bph: on tamsulosin. disposition: PT OT may need SNF placement Time Spent with Patient Time attestation: Total time spent providing and/or coordinating discharge services: 45 minutes Exam Narrative: GENERAL: Well-appearing, well-nourished, and in no acute distress. HEAD: Normocephalic, atraumatic. EYES: PERRLA and EOMI. ENT: Nares clear, no rhinorrhea or epistaxis. Mucous membranes moist. NECK: Supple. CHEST: Clear to auscultation. No respiratory distress. HEART: Regular rate and rhythm. No murmur heard. Normal peripheral pulses. ABDOMEN: Soft, nondistended, nontender, No rigidity or guarding EXTREMITIES: Normal range of motion. No edema. SKIN: Warm, dry, no rash. NEURO: No facial asymmetries, no ataxia, no mental status changes alert x4, full strength and sensations are both arms, symmetric weakness throughout both legs. Able to plantar and dorsiflex with full strength. Extraocular movements are full, no nystagmus. PSYCH: Normal mood and affect. DS: Data Imaging Radiologist's impression: ITS Impressions Head CT 09/29/24 08:24 IMPRESSION: 1. 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 2. Age-related changes including moderate diffuse volume loss and moderate scattered white matter hypoattenuation consistent with chronic small vessel ischemic disease. Chest X-Ray 09/29/24 09:05 IMPRESSION: 1. Small lung volumes with scattered mild opacities which could represent atelectasis or pneumonia. 2. Gallstone, renal stone or cholecystectomy clips project over the right upper quadrant. Brain MRI 09/29/24 14:07 IMPRESSION: 1. 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 2. Symmetric enlargement of the left and right lateral ventricles relative to the sulci which could be due to central predominant age-related atrophy or normal pressure hydrocephalus (NPH: clinical triad ataxia/gait disturbance, dementia, urinary incontinence). Renal Ultrasound 09/29/24 16:35 IMPRESSION: Unremarkable renal sonogram findings. Discharge Plan Discharge Attending physician on discharge: Bryan Valle Consulting providers: Vic Carias Discharging Clinician: Bryan Valle Anticipated Discharge Date/Time: 10/02/24 14:19 Patient Disposition: [facility] Activity: as tolerated Diet: heart healthy Discharge Instructions: Per Care Coordination, patient to return to [facility] ) at discharge. Please fax discharge instructions and medication sheets to [phone]. Patient Instructions: Antibiotic Form Patient Language: [place] Stand Alone Forms: General Discharge Information Follow-up/Referrals: Fidelia,Sima Marlow MD [Primary Care Provider] - 1 Week Vic Carias MD [Physician] - 2 Weeks Hillary Mcnair MD [Physician] - 2 Weeks Discharge Medications: New cyanocobalamin (vitamin B-12) 1,000 mcg/mL Solution See Rx Instructions .ROUTE .COMPLEX Qty: 10 0RF Rx Instructions: 1,000 mcg intramuscularly daily x 6 days then weekly x 1 month then monthly afterwards to continue Continued acyclovir 400 mg tablet 400 mg PO .noon alprazolam 0.5 mg tablet 0.5 mg PO .q12 amlodipine 10 mg tablet 10 mg PO .noon aspirin 325 mg tablet 325 mg PO .noon donepezil 10 mg tablet 10 mg PO HS escitalopram oxalate 5 mg tablet 5 mg PO .noon finasteride 5 mg tablet 5 mg PO .noon hydralazine 50 mg tablet 50 mg PO .COMPLEX Rx Instructions: 50 mg orally 12, 1600, 2000 with food; levothyroxine 25 mcg tablet 25 mcg PO 0630 lidocaine 5 % adhesive patch,medicated 1 patch transdermal Q24H lisinopril 20 mg tablet 20 mg PO .noon sennosides-docusate sodium [Stimulant Laxative Plus] 8.6-50 mg tablet See Rx Instructions PO .COMPLEX Rx Instructions: orally 1000 and 1600; meclizine 25 mg tablet 25 mg PO TID PRN (Reason: dizziness) memantine 5 mg tablet 5 mg PO .noon nitroglycerin 0.4 mg tablet, sublingual 0.4 mg sublingual Q5M PRN (Reason: chest pain) omeprazole 40 mg capsule,delayed release(DR/EC) 40 mg PO .noon polyethylene glycol 3350 17 gram/dose powder 17 g PO .noon ramelteon 8 mg tablet 8 mg PO HS rosuvastatin 20 mg tablet 20 mg PO .noon tamsulosin 0.4 mg capsule 0.4 mg PO .COMPLEX Rx Instructions: 0.4 mg orally 1200 and 1600; zolpidem 5 mg tablet 5 mg PO HS Date of admission: 09/30/24 18:46 Primary Care Provider: FideliaSima Admitting Provider: Bryan Valle Attending physician on admission: Bryan Valle Condition: Stable
[2024-10-03 13:32] LABS: Methylmalonic Acid 333 nmol/L (85-423)
== END 2024-10-02 17:20 | DRG 57 ==
LOC: ANHED 08:28 → ANH3MED 09:28
PROVIDERS: Admitting Provider Internal Medicine; Emergency Provider Student in an Organized Health Care Education/Training Program; PCP Student in an Organized Health Care Education/Training Program; Visit Provider Internal Medicine
DX: G91.2 (Idiopathic) normal pressure hydrocephalus (principal); G31.9 Degenerative disease of nervous system, unspecified; F02.80 Dementia in other diseases classified elsewhere, unspecified severity, without behavioral disturbance, psychotic disturbance, mood disturbance, and anxiety; R32 Unspecified urinary incontinence; R53.1 Weakness; R27.0 Ataxia, unspecified; K21.9 Gastro-esophageal reflux disease without esophagitis; I12.9 Hypertensive chronic kidney disease with stage 1 through stage 4 chronic kidney disease, or unspecified chronic kidney disease; N18.30 Chronic kidney disease, stage 3 unspecified; N40.0 Benign prostatic hyperplasia without lower urinary tract symptoms; E03.9 Hypothyroidism, unspecified; Z20.822 Contact with and (suspected) exposure to COVID-19; Z86.73 Personal history of transient ischemic attack (TIA), and cerebral infarction without residual deficits
CPT/HCPCS: 36415; 70450; 70553; 71045; 76775; 80053; 81001; 82306; 82607; 82746; 83735; 83921; 84443; 84484; 85025; 85610; 85730; 86592; 87637; 93005; 96361; 96374; 96375; 97161; 97165; 97530; 97535; 99285; A9270; A9577; G0378; J0360; J1644; J3420; J7030

== ENCOUNTER 2025-01-21 04:03 | Emergency (ER) | payer OTHER, SELFPAY ==
[2025-01-21] VITALS (9 sets, daily range): BP systolic 133–223; BP diastolic 79–115; PULSE 70–99; RESP 14–19; TEMP 36.6; O2SAT 92–98
--- NOTE | ~2025-01-21 | CT_ITS ---
CT head without contrast Indication: Status post fall COMPARISON: 09/29/2024 Technique: Serial scans were obtained through the brain without the administration of contrast. Dose reduction technique was used on this scan by utilizing automated exposure control and iterative recon struction technique. The dose-length product (DLP) was 681.00 mGy-cm. Findings: There is relative hypodensity in the right temporal lobe and insular cortex with some subtl e gyriform hyperdensity.. The ventricles and subarachnoid spaces are dilated, consistent with mild t o moderate atrophy. Low attenuation regions are seen within the periventricular white matter bilater ally, likely representing changes from chronic microvascular ischemic disease. There is no evidence o f edema, mass effect or midline shift. The visualized paranasal sinuses and mastoid air cells are c lear. Impression: Hypodense area in the temporal lobe and insular cortex with some subtle gyriform hyperdensity suggest s subacute infarct with laminar necrosis or possible petechial hemorrhage. Consider MR to further robert luate. Atrophy and chronic white matter changes, as above. Reviewed, dictated and finalized at location M. Impression: Hypodense area in the temporal lobe and insular cortex with some subtle gyrifor m hyperdensity suggests subacute infarct with laminar necrosis or possible chinyere chial hemorrhage. Consider MR to further evaluate. Atrophy and chronic white matter changes, as above.
--- NOTE | ~2025-01-21 | CT_ITS ---
Noncontrast CT scan of the cervical spine Technique: Multiple contiguous axial [address] images of the cervical spine were obtained and rec onstructed in 2D sagittal and coronal planes on the acquisition scanner. Dose reduction technique was used on this scan by utilizing automated exposure control, adjustment of the mA and/or kV according to patient size. The dose-length product (DLP) was 414.19 mGy-cm. Clinical History: Pain Findings: No fractures or dislocations. There is reversal of normal cervical lordosis. There are sev ere degenerative disc narrowing at C5-C6 and C6-C7. There is moderate to severe degenerative disc deb rowing at C3-C4 and C4-C5. There is degenerative change at the articulation of the odontoid process w ith the anterior arch of C1. Probable mild bilateral neural foraminal narrowing at C5-C6. Probable bi lateral neural foraminal narrowing at C6-C7. There is probable moderate canal stenosis at C5-C6. Prob able moderate to severe canal stenosis at C6-C7. No prevertebral soft tissue swelling. Impression: No fracture or subluxation of the cervical spine. Advanced degenerative spondylosis, especially at C5-C6 and C6-C7, as detailed above. Reviewed, dictated and finalized at location . Impression: No fracture or subluxation of the cervical spine. Advanced degenerative spondylosis, especially at C5-C6 and C6-C7, as detailed tera torres.
--- NOTE | 2025-01-21 04:22 | ECG_ITS ---
Test Date: 2025-01-21 04:27:23 Measurements Intervals [place] Rate: 86 P: 7 CT: 141 QRS: 268 QRSD: 163 T: 10 QT: 389 QTc: 466 Interpretive Statements SINUS RHYTHM RIGHT AXIS DEVIATION RIGHT BUNDLE BRANCH BLOCK INFERIOR INFARCT, AGE INDETERMINATE ST-T WAVE ABNORMALITY IN LATERAL LEADS- CONSIDER ISCHEMIA BASELINE ARTIFACT- I, II, III, AVR, AVL, AVF, V1-V6 ABNORMAL ECG Compared to ECG 09/29/2024 05:55:36 NO SIGNIFICANT CHANGE Electronically Signed On 01-21-2025 06:17:47 CDT by Raffi Celestin D.O.
[2025-01-21 04:41] LABS: Basophils Percent Auto 0.4 % (0.2-1.2); Eosinophils Absolute Auto 0.2 K/mm3 (0-0.3); Eosinophils Percent Auto 4.3 % (0-4.4); Hematocrit 37.9 % (42.0-52.0); Hemoglobin 12.2 g/dL (14.0-18.0); Immature Granulocyte Absolute 0.01 K/mm3 (0.00-0.031); Immature Granulocyte Percent A 0.2 % (0-0.5); Immature Platelet Fraction Pct 6.3 % (0.9-11.2); Lymphocytes Absolute Auto 0.67 K/mm3 (0.9-3.2); Lymphocytes Percent Auto 15.1 % (18.3-44.2); Mean Corpuscular HGB Conc 32.2 g/dl (32-36); Mean Corpuscular Hemoglobin 31.7 pg (26-34); Mean Corpuscular Volume 98.4 fl (80-100); Mean Platelet Volume 11.8 fl (7.4-10.4); Monocytes Absolute Auto 0.4 K/mm3 (0.1-0.6); Monocytes Percent Auto 9.2 % (2.6-8.5); Neutrophils Absolute Auto 3.2 K/mm3 (1.3-6.7); Neutrophils Percent Auto 70.8 % (45.5-73.1); Platelet Count Result 99 k/mm3 (150-375); Red Blood Count 3.85 M/mm3 (4.6-6.20); Red Cell Distribution Width 15.1 % (11.5-14.5); White Blood Count 4.5 K/mm3 (4.5-10.0)
[2025-01-21 05:02] LABS: INR 1.1; Prothrombin Time 14.5 Seconds (11.1-14.7)
[2025-01-21 05:03] LABS: Partial Thromboplastin Time 39.4 Seconds (22.3-36.8)
--- OUTSIDE RECORDS SUMMARY | 2025-01-21 05:05 | XMS_ITS ---
Author Organization [facility] Address [address] [place] [address] Care Team Providers Care Department [employer] Name Role Phone Sima Mistry MD Primary Care Provider + Isaiah Mares MD Unavailable Active Problems Problem Noted Date Diagnosed Date Post herpetic neuralgia 09/27/2024 Overview (09/27/2024): Was offered gabapentin by previous primary. Acquired hypothyroidism 08/31/2024 Overview (09/11/2024): New dx, 08/2024. Assessment & Plan (09/11/2024 1:43 PM MATERIAL EXPEDITER): New dx. Not controlled. Start levothyroxine 25 mcg daily. Repeat lab next visit. Essential hypertension 08/30/2024 Overview (08/30/2024): He is taking lisinopril 20 mg daily, amlodipine 10 mg daily. Assessment & Plan (09/11/2024 1:42 PM MATERIAL EXPEDITER): Controlled. Cont lisinopril, amlodipine. Requested monthly record of blood pressures from assisted living. Check three times weekly. Assessment & Plan (08/30/2024 12:13 PM MATERIAL EXPEDITER): Chronic and controlled. Continue amlodipine and lisinopril. CMP ordered. Gastroesophageal reflux disease without esophagi tis 08/30/2024 Overview (08/30/2024): Takes omeprazole. Assessment & Plan (08/30/2024 12:13 PM MATERIAL EXPEDITER): Will evaluate records to determine how long he has been taking this and whether it is still needed. 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 Symptoms have generally been well-managed. Assessment & Plan (08/30/2024 12:12 PM MATERIAL EXPEDITER): Chronic. Controlled. Continue Lexapro. Dementia 08/30/2024 Overview (08/30/2024): He is taking memantine and donepezil. Was doing independently in [place] until last month. His daughter, Marcie would come to visit and try to get him to take his medications regularly but she could not visit every day. They do not believe he was getting his medications regularly. He is now living in assisted living and they are dispensing his medications. Has a POA, but not certain if activated. It was also completed in [place]. Assessment & Plan (09/11/2024 1:42 PM MATERIAL EXPEDITER): Chronic. Requested updated POA records. They will look into this. Cont donepezil and memantine. Assessment & Plan (08/30/2024 12:13 PM MATERIAL EXPEDITER): Chronic. Will acquire records to see how this was diagnosed. He is alert and oriented and has decision-making ability currently. Continue donepezil and memantine and encouraged him to complete POA locally. Will check TSH and B12 as well. Multiple myeloma ([facility]) 08/30/2024 Overview (09/11/2024): Per outside records, presented February 2021 with anemia, proteinurea and worsening renal insufficiency. On watchful waiting since January 2022 with disease in [facility]. Saw Dr. Espino through [facility] last in 08/2023. Assessment & Plan (09/11/2024 12:08 PM MATERIAL EXPEDITER): Patient was lost to follow up. Will reestablish heme/onc locally for ongoing management. Assessment & Plan (08/30/2024 12:12 PM MATERIAL EXPEDITER): Will obtain records to evaluate chronicity and determine what needs he has Mixed hyperlipidemia 08/30/2024 Overview (08/30/2024): He is taking rosuvastatin 20 mg daily. Assessment & Plan (08/30/2024 12:12 PM MATERIAL EXPEDITER): Will check CMP and lipid panel to confirm chronicity and control. Continue rosuvastatin 20 mg daily. Primary insomnia 08/30/2024 Overview (09/11/2024): Daughter was not aware that he was being prescribed Ambien, ramelteon, alprazolam. She is not certain that he was taking this regularly at his home anyway. Sleeping well despite coming off medication. Assessment & Plan (08/30/2024 12:11 PM MATERIAL EXPEDITER): Given risk factors and dementia recommend against taking any sleep aids. Family is agreeable. Discontinue all of these in favor of melatonin as needed. BPH (benign prostatic hyperplasia) 08/30/2024 Overview (09/11/2024): Patient is taking finasteride and tamsulosin. Urgency. Has not been wearing depends but has them. Assessment & Plan (08/30/2024 12:11 PM MATERIAL EXPEDITER): Chronic. Reasonably controlled. Continue finasteride and tamsulosin. Lymphedema 08/30/2024 Overview (08/30/2024): Has been worse recently. Daughter is uncertain when it began. Assessment & Plan (08/30/2024 12:15 PM MATERIAL EXPEDITER): Uncertain chronicity. Will obtain CMP to evaluate for liver and kidney dysfunction. No known cardiac history. Recommend low-salt diet and compression stockings in the meantime. Hypertensive heart disease w ith heart failure ([facility]) 08/30/2024 Overview (09/11/2024): Last EF in 2023 was 65%. Acute stroke due to ischemia ([facility]) 0 03/16/2024 Cerebral ventriculomegaly 12/10/2023 Falls frequently 12/08/2023 Thrombocytopenia, unspecified 01/18/2022 Overview (09/11/2024): Platelets typically run 140s. Atrial fibrillation ([facility]) 07/25/2021 Type 2 diabetes mellitus wit h stage 3 chronic kidney disease, without long-term current use of insulin ([facility]) 07/25/2021 Overview (09/11/2024): A1c 6.8% in 2019. Ever since that time, has been low <6%. Not on medication for management, diet controlled. 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 Mostly recently 27. Creatinine climbing over the last couple years. Assessment & Plan (09/11/2024 12:07 PM MATERIAL EXPEDITER): Referral to nephrology. Likely multifactorial CKD. Will request assistance with optimizing treatment. Osteoarthrosis 11/20/2008 Generalized anxiety disorder 04/08/2004 Current Oncology Plans No current plan information found. Past Plans No past plan information found. Radiation Treatments * Plan Last Treated On Elapsed Days Fractions Treated Prescribed Fraction Dose Prescribed Total Dose Femur_R 01/07/2025 5 of 5 Iliac_R 01/07/2025 5 of 5 Reference Point Last Treated On Elapsed Days Session Dose Total Dose Femur_R 01/07/2025 20 Iliac_R 01/07/2025 20
--- OUTSIDE RECORDS SUMMARY | 2025-01-21 05:05 | XMS_ITS | Clinical Summary ---
Author Organization [facility] Address [address] [place] [address] Phone Care Team Providers Care Skiver Blockers Name Role Phone Sima Mistry MD Primary Care Provider + Sharad Huffman MD Unavailable [phone] Allergies No known active allergies Medications ALPRAZolam (XANAX) 0.5 MG Tablet 4 Active aspirin 325 MG Tablet Take 325 mg by mouth. 4 Active cyanocobalamin (VITAMIN B-12) 1000 MCG/ML Solution 4 Active lidocaine (LIDODERM) 5 % Patch 4 Active Lidocaine Viscous HCl (XYLOCAINE) 2 % Solution 4 Active meclizine (ANTIVERT) 25 MG Tablet Take 25 mg by mouth. 4 Active nitroGLYCERIN (NITROSTAT) 0.4 MG SL Tablet 0.4 mg by Sublingual route. 4 Active polyethylene glycol (GLYCOLAX) 17 GM/SCOOP Powder 4 Active zolpidem (AMBIEN) 5 MG Tablet 4 Active ondansetron (ZOFRAN) 4 MG TabletIndicatio ns:Multiple myeloma not having achieved remission (HCC) Take 1 Tablet by mouth every 6 hours as needed for Nausea - 1st line. 40 Tablet 3 5 Active prochlorperazin e (COMPAZINE) 10 MG TabletIndicatio ns:Multiple myeloma not having achieved remission (HCC) Take 1 Tablet by mouth every 4 hours as needed for Nausea - 2nd line. 40 Tablet 3 5 Active dexamethasone (DECADRON) 4 MG TabletIndicatio ns:Multiple myeloma not having achieved remission (HCC) Take 5 Tablets by mouth See Admin Instructions. Take five tablets by mouth once weekly on days 1, 8, and 15 of each 21 day treatment cycle. Take with food. On Darzalex treatment days, take one hour prior to appointment. 15 Tablet 7 5 Active acyclovir (ZOVIRAX) 400 MG TabletIndicatio ns:Multiple myeloma not having achieved remission (HCC) Take 1 Tablet by mouth 2 times daily. To be taken 2 times a day. 60 Tablet 2 5 Active amLODIPine (NORVASC) 10 MG Tablet 5 Active donepezil (ARICEPT) 10 MG Tablet 5 Active Escitalopram Oxalate 5 MG Tablet 5 Active finasteride (PROSCAR) 5 MG Tablet 5 Active hydrALAZINE 50 MG Tablet 5 Active levothyroxine (SYNTHROID) 25 MCG Tablet 5 Active lisinopril (PRINIVIL, ZESTRIL) 20 MG Tablet 5 Active memantine (NAMENDA) 5 MG Tablet 5 Active nystatin (MYCOSTATIN) 721701 UNIT/ML Suspension Active omeprazole (PriLOSEC) 40 MG CAPSULE DELAYED RELEASE 5 Active rosuvastatin (CRESTOR) 20 MG Tablet 5 Active Stimulant Laxative 8.6-50 MG Tablet 5 Active tamsulosin (FLOMAX) 0.4 MG Capsule 5 Active dexamethasone (DECADRON) 4 MG TabletIndicatio ns:Multiple myeloma not having achieved remission (HCC) Take 5 Tablets by mouth See Admin Instructions. Take five tablets by mouth once weekly on days 1, 8, and 15 of each 21 day treatment cycle. Take with food. On Darzalex treatment days, take one hour prior to appointment. 15 Tablet 7 5 Active acetaminophen (TYLENOL) 500 MG Tablet Take 1,000 mg by mouth. 5 Active dexamethasone (DECADRON) 4 MG TabletIndicatio ns:Multiple myeloma not having achieved remission (HCC) Take 5 Tablets by mouth See Admin Instructions. Take five tablets by mouth once weekly on days 1, 8, and 15 of each 21 day treatment cycle. Take with food. On Darzalex treatment days, take one hour prior to appointment. 15 Tablet 7 5 Active dexamethasone (DECADRON) 4 MG TabletIndicatio ns:Multiple myeloma not having achieved remission (HCC) Take 5 Tablets by mouth See Admin Instructions. Take five tablets by mouth once weekly on days 1, 8, and 15 of each 21 day treatment cycle. Take with food. On Darzalex treatment days, take one hour prior to appointment. 15 Tablet 7 5 Active Active Problems Problem Noted Date Diagnosed Date Bone disorder 01/17/2025 Musculoskeletal system imaging abnormality 12/21 Anemia, unspecified 12/21/2024 HTN (hypertension) 10/18/2024 Multiple myeloma not having achieved remission 0 10/18/2024 Encounters Date Type Department Care Team Description 01/03/2025 8:30 AM CDT Office Visit [facility] [address] [address] Nicole Arthur, POKER ROOM MANAGER, [employer] Multiple myeloma not having achieved remission (HCC) (Primary Dx) 01/03/2025 8:15 AM CDT Clinical Support [facility] [address] [address] Multiple myeloma not having achieved remission (HCC) (Primary Dx) 01/03/2025 Travel 12/27/2024 8:30 AM CDT Clinical Support [facility] [address] [address] Multiple myeloma not having achieved remission (HCC) (Primary Dx) 12/27/2024 8:15 AM CDT Office Visit [facility] [address] [address] Sharad Huffman MD Multiple myeloma not having achieved remission (HCC) (Primary Dx) 12/27/2024 Travel 12/20/2024 8:30 AM BSA OFFICER Clinical Support [facility] [address] [address] Multiple myeloma not having achieved remission (HCC) (Primary Dx) 12/20/2024 8:15 AM BSA OFFICER Office Visit [facility] [address] [address] Sharad Huffman MD Multiple myeloma not having achieved remission (HCC) (Primary Dx) 12/20/2024 Travel 12/13/2024 8:15 AM BSA OFFICER Office Visit [facility] [address] [address] Sharad Huffman MD Multiple myeloma not having achieved remission (HCC) (Primary Dx) 12/13/2024 8:00 AM BSA OFFICER Clinical Support [facility] [address] [address] Multiple myeloma not having achieved remission (HCC) (Primary Dx) 12/13/2024 Travel 12/06/2024 8:30 AM BSA OFFICER Telemedicine [facility] [address] [address] Sharad Huffman MD Multiple myeloma not having achieved remission (HCC) (Primary Dx) 12/06/2024 Travel 12/03/2024 Refill [facility] [address] [address] Sharad Huffman MD Medication Refill 12/03/2024 Telephone [facility] [address] [address] Sharad Huffman MD 11/30/2024 8:30 AM BSA OFFICER Care Management [facility] [address] [address] Navigator [facility] Nurse Care Management (EDUCATION PREP) 11/26/2024 10:00 AM BSA OFFICER Office Visit [facility] [address] [address] Sharad Huffman MD Multiple myeloma not having achieved remission (HCC) (Primary Dx) 11/26/2024 9:55 AM BSA OFFICER Lab [facility] [address] [address] Lab, [facility]oma not having achieved remission (HCC) 11/26/2024 Travel 11/12/2024 10:00 AM BSA OFFICER Office Visit [facility] [address] [address] Sharad Huffman MD Multiple myeloma not having achieved remission (HCC) (Primary Dx) 11/12/2024 8:30 AM BSA OFFICER Ancillary Procedure [facility] [address] [address] Sharad Huffman MD Multiple myeloma not having achieved remission (HCC) 11/12/2024 Travel 11/01/2024 10:30 AM BSA OFFICER Office Visit [facility] [address] [address] Sharad Huffman MD Multiple myeloma not having achieved remission (HCC) (Primary Dx) 11/01/2024 Travel from Last 3 Months Family History Medical History Relation Name Comments Cancer Father Cancer Mother Hypertension Mother Stroke Mother Relation Name Status Comments Father Mother Social History Tobacco Use Types Packs/Day Years Used Date Smoking Tobacco: Never Smokeless Tobacco: Never Tobacco Cessation:Counseling Given: Not Answered Alcohol Use Standard Drinks/Week Comments Not Currently 0 (1 standard drink = 0.6 oz pur e alcohol) PHQ-2 Answer Date Recorded Total Score - Questions 1-9 16 11/17 Sex and Gender Information Value Date Recorded Sex Assigned at Not on file Legal Sex Male 2:23 PM BSA OFFICER Gender Identity Not on file Sexual Orientation Not on file Last Filed Vital Signs Vital Sign Reading Time Taken Comments Blood Pressure 180/72 01/03/2025 8:50 AM CDT Pulse 66 01/03/2025 8:50 AM CDT Temperature 36.7 C (98 F) 01/03/2025 8:50 AM CDT Respiratory Rate 18 01/03/2025 8:50 AM CDT Oxygen Saturation 97% 01/03/2025 8:50 AM CDT Inhaled Oxygen Concentration - - Weight 94.3 kg (208 lb) 01/03/2025 8:50 AM CDT Height 175.3 cm (5' 9 ) 01/03/2025 8:50 AM CDT Body Mass Index 30.72 01/03/2025 8:50 AM CDT Plan of Treatment Health Maintenance Due Date Last Done Comments Hepatitis C Virus (HCV) Screening 1945 SARS-COV-2 Immunization (#1) 1949 Respiratory Syncytial Virus (RSV) Immunization (Adult) (1 - 1-dose 75+ series) 2019 Zoster Immunization (2 of 2) 07/10/2021 05/15/2021 Influenza Immunization (Seas on Ended) 2025 07/25/2020, 08/05/2011 TdaP Immunization Completed 02/11/2014 Pneumococcal Immunization (5 0+ years) Completed 09/01/2020, 02/11/2014 Hepatitis B Immunization Aged Out No longer eligible based on patient's age to complete this topic Meningococcal Immunization (ACWY) Aged Out No longer eligible b ased on patient's age to complete this topic Rotavirus Immunization Aged Out No lo nger eligible based on patient's age to complete this topic Procedures Procedure Name Priority Date/Time Associated Diagnosis Comments SERUM FREE LIGHT CHAINS, [place] Routine 01/03/2025 8:34 AM CDT COMPLETE BLOOD COUNT (CBC) WITH DIFF Routine 01/03/2025 8:34 AM CDT Multiple myeloma not having achieved remission (HCC) CMP (COMPREHENSIVE METABOLIC PANEL) Routine 01/03/2025 8:34 AM CDT Multiple myeloma not having achieved remission (HCC) MAGNESIUM (MG) Routine 01/03/2025 8:34 AM CDT Multiple myeloma not having achieved remission (HCC) ELECTROPHORESIS W/ TOTAL PROTEIN SERUM Routine 01/03/2025 8:34 AM CDT Multiple myeloma not having achieved remission (HCC) BETA 2 MICROGLOBULIN Routine 01/03/2025 8:34 AM CDT Multiple myeloma not having achieved remission (HCC) IMMUNOGLOBULIN IGA, IGG & IGM QUANT Routine 01/03/2025 8:34 AM CDT Multiple myeloma not having achieved remission (HCC) COMPLETE BLOOD COUNT (CBC) WITH DIFF Routine 12/27/2024 8:13 AM CDT Multiple myeloma not having achieved remission (HCC) CMP (COMPREHENSIVE METABOLIC PANEL) Routine 12/27/2024 8:13 AM CDT Multiple myeloma not having achieved remission (HCC) CBC WITH AUTO DIFF OH Routine 12/20/2024 8:36 AM BSA OFFICER Multiple myeloma not having achieved remission (HCC) CMP (COMPREHENSIVE METABOLIC PANEL) Routine 12/20/2024 8:36 AM BSA OFFICER Multiple myeloma not having achieved remission (HCC) ABO & RH TYPING Routine 12/13/2024 8:44 AM BSA OFFICER Multiple myeloma not having achieved remission (HCC) SERUM FREE LIGHT CHAINS, [place] Routine 11/26/2024 11:01 AM BSA OFFICER CBC WITH AUTO DIFF [place] Routine 11/26/2024 11:01 AM BSA OFFICER CMP (COMPREHENSIVE METABOLIC PANEL) Routine 11/26/2024 11:01 AM BSA OFFICER Multiple myeloma not having achieved remission (HCC) ELECTROPHORESIS W/ TOTAL PROTEIN SERUM Routine 11/26/2024 11:01 AM BSA OFFICER Multiple myeloma not having achieved remission (HCC) IMMUNOGLOBULIN IGA, IGG & IGM QUANT Routine 11/26/2024 11:01 AM BSA OFFICER Multiple myeloma not having achieved remission (HCC) PET CT TUMOR IMAGING WHOLE BODY Routine 11/12/2024 11:10 AM BSA OFFICER Multiple myeloma not having achieved remission (HCC) from Last 3 Months Results * (ABNORMAL) SERUM FREE [place]INS, [place] (01/03/2025 8:34 AM CDT) Only the most recent of2 resultswithin the time period is included. Pathologist [facility] [place] FREE KAPPA LT CHAINS 737.9(H) 2.9 - 20.7 mg/L [facility] FREE LAMBDA LT CHAINS 13.7 4.2 - 27.6 mg/L [facility] KAPPA/LAMBDA RATIO 53.86(H) 0.22 - 1.74 [facility] 01/03/2025 8:34 AM CDT Sharad Huffman MD LAB SEND OUTS Final Result Performing Organization Address [facility] Co de Phone Number [facility] [place] [address], * (ABNORMAL) MAGNESIUM (MG) (01/03/2025 8:34 AM CDT) Magnesium 1.6(L) 1.9 - 2.7 mg/dL [facility] Blood 01/03/2025 8:34 AM CDT Narrative [facility] - 01/03/2025 9:34 AM CDT Release to patient->Immediate Sharad Huffman MD CHEMISTRY ORDERABLES Final R esult Performing Organization Address [facility] Co de Phone Number [facility] [place] [address], * (ABNORMAL) IMMUNOGLOBULIN IGA, IGG & IGM QUANT (01/03/2025 8:34 AM CDT) Only the most recent of2 resultswithin the time period is included. IGG 448(L) 635 - 1,741 mg/dL [facility] IGA 511(H) 66 - 433 mg/dL [facility] IGM <20(L) 45 - 281 mg/dL [facility] Blood 01/03/2025 8:34 AM CDT Narrative [facility] - 01/03/2025 2:37 PM CDT Release to patient->Immediate Sharad Huffman MD CHEMISTRY ORDERABLES Final R esult [facility] [place] [address], [place] [phone] * (ABNORMAL) ELECTROPHORESIS W/ TOTAL PROTEIN SERUM (01/03/2025 8:34 AM CDT) Only the most recent of2 resultswithin the time period is included. PROTEIN, TOTAL, SERUM 6.4 6.0 - 8.5 G/DL [facility] ALBUMIN 3.6 2.9 - 4.4 G/DL [facility] [id number] 0.3 0.0 - 0.4 G/DL [facility] [id number] 0.8 0.4 - 1.0 G/DL [facility] BETA GLOBULIN 1.3 0.7 - 1.3 G/DL [facility] GAMMA GLOBULIN 0.5 0.4 - 1.8 G/DL [facility] M-SPIKE 0.1(H) NOT OBSERVED G/DL [facility] GLOBULIN, TOTAL 2.8 2.2 - 3.9 G/DL [facility] A/G RATIO 1.3 0.7 - 1.7 [facility] PLEASE NOTE: COMMENT [facility] Comment: PROTEIN ELECTROPHORESIS SCAN WILL FOLLOW VIA COMPUTER, MAIL, OR MARINE TRANSPORT PROFESSIONALS DELIVERY. PDF . [facility] Blood 01/03/2025 8:34 AM CDT Narrative [facility] - 01/04/2025 3:08 PM CDT TESTING PERFORMED AT: [] [facility], [address] [place] [address], [place], [address], PHONE: [phone], NAPPER FIXER: CAM JOHNSON, PHD Release to patient->Immediate Sharad Huffman MD CHEMISTRY ORDERABLES Final R esult [facility] [place] [address], * (ABNORMAL) CMP (COMPREHENSIVE METABOLIC PANEL) (01/03/2025 8:34 AM CDT) Only the most recent of4 resultswithin the time period is included. Glucose 150(H) 70 - 105 mg/dL [facility] Blood Urea Nitrogen 36(H) 7 - 25 mg/dL [facility] Creatinine 2.1(H) 0.7 - 1.3 mg/dL [facility] Sodium 139 136 - 145 mEq/L [facility] Potassium 5.2(H) 3.5 - 5.1 mEq/L [facility] Chloride 106 98 - 107 mEq/L [facility] Bicarbonate 24 21 - 31 mEq/L [facility] Total Bilirubin 0.6 0.3 - 1.0 mg/dL [facility] Alk. Phosphatase 97 34 - 104 U/L [facility] Aspartate Aminotransferase 8(L) 13 - 39 U/L [facility] Alanine Aminotransferase 6(L) 7 - 52 U/L [facility] Total Protein 6.7 6.4 - 8.9 g/dL [facility] Albumin 4.1 3.5 - 5.7 g/dL [facility] Calcium 9.3 8.6 - 10.3 mg/dL [facility] Anion Gap 14.2 7.0 - 15.0 mEq/L [facility] Globulin 2.6 2.0 - 3.5 g/dL [facility] EGFR 31(L) >60 ml/min/1. 73m2 [facility] Comment: This eGFR is calculated using 2020 CKD-EPI Creatinine equation without race modifier based on the NKF-ASN task force recommendations Equation: tRRA=352*min(SCr/k,1)a*max(SCr/k,1)-1.200*0.9938Age*1.012 (if female), where SCr is serum creatinine, k is 0.7 for females and 0.9 for males, and a is -0.241 for females and -0.302 for males Blood 01/03/2025 8:34 AM CDT Narrative [facility] - 01/03/2025 9:34 AM CDT Release to patient->Immediate IS THE PATIENT REQUIRED TO BE FASTING FOR 8 HOURS?->No Sharad Huffman MD CHEMISTRY ORDERABLES Final R esult [facility] [place] [address], * (ABNORMAL) COMPLETE BLOOD COUNT (CBC) WITH DIFF (01/03/2025 8:34 AM CDT) Only the most recent of2 resultswithin the time period is included. WBC 3.6(L) 4.0 - 10.0 10*3/uL [facility] HGB 11.8(L) 13.7 - 17.5 g/dL [facility] HCT 36.7(L) 40.1 - 51.0 % [facility] PLT 95(L) 163 - 369 10*3/uL [facility] MPV 12.0 9.4 - 12.4 fL [facility] RBC 3.79(L) 4.63 - 6.08 10*6/uL [facility] MCV 97(H) 79 - 95 fL [facility] MCH 31.1 25.6 - 32.2 pg [facility] MCHC 32.2 32.2 - 36.5 g/dL [facility] RDW 15.0(H) 11.6 - 14.4 % [facility] Absolute Neutrophil Count 3,005 cells/uL [facility] Absolute Seg Count 3,005 1,440 - 6,600 cells/uL [facility] Absolute Lymph Count 398(L) 760 - 4,000 cells/uL [facility] Absolute [place] Count 36(L) 160 - 1,200 cells/uL [facility] Absolute Eos Count 145 0 - 300 cells/uL [facility] Absolute Baso Count 36 0 - 100 cells/uL [facility] Segmented Neutrophils 83(H) 36 - 66 % [facility] Lymphocytes 11(L) 19 - 40 % [facility] Monocytes 1(L) 4 - 12 % [facility] Eosinophils 4(H) 0 - 3 % [facility] Basophils 1 0 - 1 % [facility] WBC Estimate Low [facility] Platelet Estimate Low [facility] RBC Morphology Abnormal [facility] Anisocytosis 1+ [facility] Blood 01/03/2025 8:34 AM CDT Narrative [facility] - 01/03/2025 11:45 AM CDT Release to patient->Immediate Sharad Huffman MD HEMATOLOGY ORDERABLES Final Result Performing Organization Address City/[facility] Co de Phone Number [facility] [place] [place] [address], [place] [phone] * (ABNORMAL) BETA 2 MICROGLOBULIN (01/03/2025 8:34 AM CDT) [id number] 4.52(H) 0.97 - 1.84 mg/L [facility] Blood 01/03/2025 8:34 AM CDT Narrative [facility] - 01/03/2025 2:37 PM CDT Release to patient->Immediate Sharad Huffman MD CHEMISTRY ORDERABLES Final R esult Performing Organization Address City/[facility] Co de Phone Number [facility] [place] [address], [place] [phone] * (ABNORMAL) CBC WITH AUTO DIFF [place] (12/20/2024 8:36 AM BSA OFFICER) Only the most recent of2 resultswithin the time period is included. WBC 4.5 4.0 - 10.0 10*3/uL [facility] HGB 11.8(L) 13.7 - 17.5 g/dL [facility] HCT 36.3(L) 40.1 - 51.0 % [facility] PLT 102(L) 163 - 369 10*3/uL [facility] MPV 11.6 9.4 - 12.4 fL [facility] RBC 3.80(L) 4.63 - 6.08 10*6/uL [facility] MCV 96(H) 79 - 95 fL [facility] MCH 31.1 25.6 - 32.2 pg [facility] MCHC 32.5 32.2 - 36.5 g/dL [facility] RDW 14.6(H) 11.6 - 14.4 % [facility] Neutrophils % 60.8 36.0 - 66.0 % [facility] Lymphocytes % 21.1 19.0 - 40.0 % [facility] Monocytes % 8.3 4.1 - 12.1 % [facility] Eosinophils % 9.0(H) 0.0 - 3.5 % [facility] Basophils % 0.4 0.0 - 1.0 % [facility] Absolute Neutrophils 2.7 1.4 - 6.6 10*3/uL [facility] Absolute Lymphocytes 0.9 0.8 - 4.0 10*3/uL [facility] Absolute Monocytes 0.4 0.2 - 1.2 10*3/uL [facility] Absolute Eosinophils 0.4 0.0 - 0.4 10*3/uL [facility] Absolute Basophils 0.0 0.0 - 0.1 10*3/uL [facility] 12/20/2024 8:36 AM BSA OFFICER us Sharad Huffman MD LAB SEND OUTS Final Result [facility] [address] [place] [address], * ABO & RH TYPING (12/13/2024 8:44 AM BSA OFFICER) ABO GROUPING O [facility] RH FACTOR NEGATIVE [facility] Comment: PLEASE NOTE: PRIOR RECORDS FOR THIS PATIENT'S ABO / RH TYPE ARE NOT AVAILABLE FOR ADDITIONAL VERIFICATION. Blood 12/13/2024 8:44 AM BSA OFFICER Narrative [facility] - 12/14/2024 6:07 AM BSA OFFICER TESTING PERFORMED AT: [] [facility], [address] [place] [address], [place], [address], PHONE: [phone], NAPPER FIXER: CAM JOHNSON, PHD Release to patient->Immediate Sharad Huffman MD BLOOD BANK ORDERABLES Final Result Performing Organization Address City/State/[facility] Co de Phone Number [facility] [address] [place] [address], [place] [phone] * PET CT TUMOR IMAGING WHOLE BODY (11/12/2024 11:10 AM BSA OFFICER) Anatomical Region Laterality Modality BODY N/A Computed Tomogra phy Narrative 11/12/2024 11:33 AM BSA OFFICER EXAMINATION: PET CT TUMOR IMAGING WHOLE BODY 11/12/2024 INDICATIONS: Multiple myeloma not having achieved remission multiple myeloma, restaging COMPARISON: None available TECHNIQUE: Following administration of 11.59 millicuries F 18 FDG, whole-body CT-PET images were acquired. Fused CT-PET images were reviewed. Glucose 123. A dose lowering technique was used for this procedure, which may include, but is not limited to, dose reduction technique(s), automated exposure control technique(s), use of iterative reconstruction technique(s), and ALARA (as low as reasonably achievable) or ALARA/IMAGE Gently technique(s). FINDINGS: Head neck: There is dilatation of the ventricles which could relate to atrophy. Correlate with any symptoms of normal pressure hydrocephalus. No hypermetabolic lesions are seen within the brain. There is paraspinal muscular activity this is likely physiologic. No hypermetabolic adenopathy is identified. Thyroid is unremarkable. There is some upper normal sized left supraclavicular lymph nodes which are not significantly hypermetabolic Cardiovascular: Atherosclerotic disease is seen within the thoracic aorta without evidence of aneurysm. Three-vessel coronary artery calcification is present. Heart size is upper limits of normal Lungs: Bronchial wall thickening is seen with scattered atelectatic changes. Non-specific interstitial changes are seen dependently. Granulomatous disease is present. No suspicious pulmonary nodules are seen. There is a subtle nodular density peripherally within right upper lobe. Recommend comparison with any priors and follow-up to ensure stability. Hepatobiliary: The liver is homogeneous in attenuation. No hypermetabolic liver lesions are appreciated. The gallbladder is absent. No biliary ductal dilatation is seen. The pancreas is unremarkable Lymphatics: There is lobulated hypermetabolic mass within the spleen concerning for malignancy. No hypermetabolic adenopathy is seen within the chest. Less than 1 cm lymph nodes are present within the abdomen and pelvis. : The adrenal glands are normal configuration. The kidneys are somewhat atrophic. Lobulated contours are seen. Right renal cyst is present. Prostate is not enlarged. Streak artifact from hip prostheses limits evaluation pelvis. The bladder is unremarkable. Questioned bilateral varicoceles. GI: Bowel-gas pattern is nonobstructive. Significant colonic diverticulosis is present without definite evidence of diverticulitis. There is hypermetabolic soft tissue mass within the left posterior flank most consistent with malignancy. Activity in the colon most likely physiologic. Musculoskeletal: Postop changes are seen bilateral hip arthroplasty. There is hypermetabolic activity within the right proximal femur posteriorly adjacent to the femoral component. This is also raises concern for malignant involvement. Changes related to the prosthesis or less likely. There is a lytic destructive mass of the right iliac wing most consistent with malignancy. Activity within the hands and extending into the right arm uncertain in their etiology. Recommend clinical correlation. IMPRESSION 1. Lytic destructive mass with hypermetabolic activity involving the right iliac wing most consistent with malignancy. This could represent myeloma/plasmacytoma. Metastatic disease of other etiology not excluded. 2. Postop changes bilateral hip arthroplasty. There is hypermetabolic activity within the posterior right proximal femur adjacent to the prosthesis uncertain in its etiology this also raises the possibility of myeloma or metastatic disease. Changes related to the hip prosthesis not excluded. 3. Hypermetabolic mass within the spleen this is most consistent with malignancy. Additional hypermetabolic mass is seen within the left posterior flank consistent with malignant involvement. These could relate to extraosseous myeloma. Lymphoma or other metastatic disease of the possibility. Electronically signed by: CASSIA DELCID MD, Staff Radiologist Date of Signature: 11/12/2024 11:33:52 Procedure Note Cassia Delcid MD - 11/12/2024 EXAMINATION: PET CT TUMOR IMAGING WHOLE BODY 11/12/2024 INDICATIONS: Multiple myeloma not having achieved remission multiple myeloma,restaging COMPARISON: None available TECHNIQUE: Following administration of 11.59 millicuries F 18 FDG, whole-body CT-PETimages were acquired. Fused CT-PET images were reviewed. Glucose 123. A dose lowering technique was used for this procedure, which may include,but is not limited to, dose reduction technique(s), automated exposurecontrol technique(s), use of iterative reconstruction technique(s), andALARA (as low as reasonably achievable) or ALARA/IMAGE Gentlytechnique(s). FINDINGS: Head neck: There is dilatation of the ventricles which could relate toatrophy. Correlate with any symptoms of normal pressure hydrocephalus.No hypermetabolic lesions are seen within the brain. There is paraspinalmuscular activity this is likely physiologic. No hypermetabolicadenopathy is identified. Thyroid is unremarkable. There is some uppernormal sized left supraclavicular lymph nodes which are not significantlyhypermetabolic Cardiovascular: Atherosclerotic disease is seen within the thoracic aortawithout evidence of aneurysm. Three-vessel coronary artery calcificationis present. Heart size is upper limits of normal Lungs: Bronchial wall thickening is seen with scattered atelectaticchanges. Non-specific interstitial changes are seen dependently.Granulomatous disease is present. No suspicious pulmonary nodules areseen. There is a subtle nodular density peripherally within right upperlobe. Recommend comparison with any priors and follow-up to ensurestability. Hepatobiliary: The liver is homogeneous in attenuation. No hypermetabolicliver lesions are appreciated. The gallbladder is absent. No biliaryductal dilatation is seen. The pancreas is unremarkable Lymphatics: There is lobulated hypermetabolic mass within the spleenconcerning for malignancy. No hypermetabolic adenopathy is seen withinthe chest. Less than 1 cm lymph nodes are present within the abdomen andpelvis. : The adrenal glands are normal configuration. The kidneys are somewhatatrophic. Lobulated contours are seen. Right renal cyst is present.Prostate is not enlarged. Streak artifact from hip prostheses limitsevaluation pelvis. The bladder is unremarkable. Questioned bilateralvaricoceles. GI: Bowel-gas pattern is nonobstructive. Significant colonicdiverticulosis is present without definite evidence of diverticulitis.There is hypermetabolic soft tissue mass within the left posterior flankmost consistent with malignancy. Activity in the colon most likelyphysiologic. Musculoskeletal: Postop changes are seen bilateral hip arthroplasty.There is hypermetabolic activity within the right proximal femurposteriorly adjacent to the femoral component. This is also raisesconcern for malignant involvement. Changes related to the prosthesis orless likely. There is a lytic destructive mass of the right iliac wingmost consistent with malignancy. Activity within the hands and extendinginto the right arm uncertain in their etiology. Recommend clinicalcorrelation. IMPRESSION 1. Lytic destructive mass with hypermetabolic activity involving the rightiliac wing most consistent with malignancy. This could representmyeloma/plasmacytoma. Metastatic disease of other etiology notexcluded. 2. Postop changes bilateral hip arthroplasty. There is hypermetabolicactivity within the posterior right proximal femur adjacent to theprosthesis uncertain in its etiology this also raises the possibility ofmyeloma or metastatic disease. Changes related to the hip prosthesis notexcluded. 3. Hypermetabolic mass within the spleen this is most consistent withmalignancy. Additional hypermetabolic mass is seen within the leftposterior flank consistent with malignant involvement. These could relateto extraosseous myeloma. Lymphoma or other metastatic disease of thepossibility. Electronically signed by: CASSIA DELCID MD, Staff Radiologist Date of Signature: 11/12/2024 11:33:52 Sharad Huffman MD IMG PET Final Result from Last 3 Months Insurance MEDICARE C [employer] Care Teams [employer] Relationship Specialty Start Date End Date Sima Mistry MD [id number] [place] [id number] PCP - General Family Medicine 09/18/24 Sharad Huffman MD [address] [place] [address] Consulting Physician Oncology 09/18/24
--- OUTSIDE RECORDS SUMMARY | 2025-01-21 05:05 | XMS_ITS ---
Author Organization [facility] Address [address] [place] [address] Phone Care Team Providers Care Director Of Music Therapy Name Role Phone Sima Mistry MD Primary Care Provider + Sharad Huffman MD Unavailable [phone] Active Problems Problem Noted Date Diagnosed Date Bone disorder 01/17/2025 Musculoskeletal system imaging abnormality 12/21 Anemia, unspecified 12/21/2024 HTN (hypertension) 10/18/2024 Multiple myeloma not having achieved remission 0 10/18/2024 Current Treatment and Therapy Plans MULTIPLE MYELOMA - DARATUMUMAB / BORTEZOMIB / DEXAMETHASONE - [facility]* Plan Start Date:11/25/2024 Plan Provider:Sharad Huffman MD Linked Problems Multiple myeloma not having achieved remission (HCC) Treatment Medications Current Day (Day 1 , Cycle 2 - Planned for 01/03/2025) Next Day (Day 8, Cycle 2 - Planned for 01/10/2025) bortezomib (VELCADE) injectiondaratumumab-hyaluron idase-fihj (DARZALEX FASPRO) 1800-03809 MG-UT/15ML Soln bortezomib (VELCADE) 2.25 mg in Sodium Chloride (PF) 0.9 % 0.9 mL chemo injectiondaratumumab-hyaluro nidase-fihj (DARZALEX FASPRO) [id number] MG-UT/15ML injection SOLN 15 mL bortezomib (VELCADE) 2.25 mg in Sodium Chloride (PF) 0.9 % 0.9 mL chemo injectiondaratumumab-hyaluro nidase-fihj (DARZALEX FASPRO) [id number] MG-UT/15ML injection SOLN 15 mL Past Treatment and Therapy Plans No past plan information found.
--- OUTSIDE RECORDS SUMMARY | 2025-01-21 05:05 | XMS_ITS | Clinical Summary ---
Author Organization [facility] Address Formerly [facility] [place] [address] Care Team Providers Care Compressor Stations Superintendent Name Role Phone Sima Mistry MD Primary Care Provider + Isaiah Mares MD Unavailable Allergies No known active allergies Medications acyclovir (ZOVIRAX) 400 MG tablet Take 1 tablet (400 mg total) by mouth. 08/03/2024 Active aspirin 325 MG tablet Take 1 tablet (325 mg total) by mouth. 08/03/2024 Active meclizine (ANTIVERT) 25 MG tablet Take 1 tablet (25 mg total) by mouth 3 (three) times daily as needed. 07/19/2024 Active nitroglycerin (NITROSTAT) 0.[address] 1 tablet (0.4 mg total) under the tongue. 07/19/2024 Active STIMULANT LAXATIVE 8.6-50 MG tablet as needed. 08/03/2024 Active Melatonin 10 MG TABLET DISPERSIBLEIndi cations:Primary insomnia Take 10 mg by mouth nightly as needed. 08/30/2024 Active acetaminophen (TYLENOL) 500 MG tablet Take 2 tablets (1,000 mg total) by mouth every 8 (eight) hours. 180 tablet 12/14/2024 Active lidocaine (LIDODERM) 5 %Indications:Po st herpetic neuralgia APPLY TO AFFECTED AREA ONCE DAILY NEEDED 30 patch 12/24/2024 Active Active Problems Problem Noted Date Diagnosed Date Post herpetic neuralgia 09/27/2024 Overview (09/27/2024): Was offered gabapentin by previous primary. Acquired hypothyroidism 08/31/2024 Overview (09/11/2024): New dx, 08/2024. Assessment & Plan (09/11/2024 1:43 PM DIVIDING MACHINE OPERATOR): New dx. Not controlled. Start levothyroxine 25 mcg daily. Repeat lab next visit. Essential hypertension 08/30/2024 Overview (08/30/2024): He is taking lisinopril 20 mg daily, amlodipine 10 mg daily. Assessment & Plan (09/11/2024 1:42 PM DIVIDING MACHINE OPERATOR): Controlled. Cont lisinopril, amlodipine. Requested monthly record of blood pressures from assisted living. Check three times weekly. Assessment & Plan (08/30/2024 12:13 PM DIVIDING MACHINE OPERATOR): Chronic and controlled. Continue amlodipine and lisinopril. CMP ordered. Gastroesophageal reflux disease without esophagi tis 08/30/2024 Overview (08/30/2024): Takes omeprazole. Assessment & Plan (08/30/2024 12:13 PM DIVIDING MACHINE OPERATOR): Will evaluate records to determine how long he has been taking this and whether it is still needed. 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 Symptoms have generally been well-managed. Assessment & Plan (08/30/2024 12:12 PM DIVIDING MACHINE OPERATOR): Chronic. Controlled. Continue Lexapro. Dementia 08/30/2024 Overview (08/30/2024): He is taking memantine and donepezil. Was doing independently in [place] until last month. His daughter, Marcie would come to visit and try to get him to take his medications regularly but she could not visit every day. They do not believe he was getting his medications regularly. He is now living in assisted living and they are dispensing his medications. Has a POA, but not certain if activated. It was also completed in [place]. Assessment & Plan (09/11/2024 1:42 PM DIVIDING MACHINE OPERATOR): Chronic. Requested updated POA records. They will look into this. Cont donepezil and memantine. Assessment & Plan (08/30/2024 12:13 PM DIVIDING MACHINE OPERATOR): Chronic. Will acquire records to see how this was diagnosed. He is alert and oriented and has decision-making ability currently. Continue donepezil and memantine and encouraged him to complete POA locally. Will check TSH and B12 as well. Multiple myeloma ([facility]/HCC [facility]/HCC) 08/30/2024 Overview (09/11/2024): Per outside records, presented February 2021 with anemia, proteinurea and worsening renal insufficiency. On watchful waiting since January 2022 with disease in [facility]. Saw Dr. Espino through [facility] last in 08/2023. Assessment & Plan (09/11/2024 12:08 PM DIVIDING MACHINE OPERATOR): Patient was lost to follow up. Will reestablish heme/onc locally for ongoing management. Assessment & Plan (08/30/2024 12:12 PM DIVIDING MACHINE OPERATOR): Will obtain records to evaluate chronicity and determine what needs he has Mixed hyperlipidemia 08/30/2024 Overview (08/30/2024): He is taking rosuvastatin 20 mg daily. Assessment & Plan (08/30/2024 12:12 PM DIVIDING MACHINE OPERATOR): Will check CMP and lipid panel to confirm chronicity and control. Continue rosuvastatin 20 mg daily. Primary insomnia 08/30/2024 Overview (09/11/2024): Daughter was not aware that he was being prescribed Ambien, ramelteon, alprazolam. She is not certain that he was taking this regularly at his home anyway. Sleeping well despite coming off medication. Assessment & Plan (08/30/2024 12:11 PM DIVIDING MACHINE OPERATOR): Given risk factors and dementia recommend against taking any sleep aids. Family is agreeable. Discontinue all of these in favor of melatonin as needed. BPH (benign prostatic hyperplasia) 08/30/2024 Overview (09/11/2024): Patient is taking finasteride and tamsulosin. Urgency. Has not been wearing depends but has them. Assessment & Plan (08/30/2024 12:11 PM DIVIDING MACHINE OPERATOR): Chronic. Reasonably controlled. Continue finasteride and tamsulosin. Lymphedema 08/30/2024 Overview (08/30/2024): Has been worse recently. Daughter is uncertain when it began. Assessment & Plan (08/30/2024 12:15 PM DIVIDING MACHINE OPERATOR): Uncertain chronicity. Will obtain CMP to evaluate for liver and kidney dysfunction. No known cardiac history. Recommend low-salt diet and compression stockings in the meantime. Hypertensive heart disease w ith heart failure ([facility]) 08/30/2024 Overview (09/11/2024): Last EF in 2023 was 65%. Acute stroke due to ischemia ([facility] HHS/[facility]) 0 03/16/2024 Cerebral ventriculomegaly 12/10/2023 Falls frequently 12/08/2023 Thrombocytopenia, unspecified 01/18/2022 Overview (09/11/2024): Platelets typically run 140s. Atrial fibrillation ([facility] HHS/[facility]) 07/25/2021 Type 2 diabetes mellitus wit h stage 3 chronic kidney disease, without long-term current use of insulin ([facility]) 07/25/2021 Overview (09/11/2024): A1c 6.8% in 2019. Ever since that time, has been low <6%. Not on medication for management, diet controlled. Bilateral leg edema 06/04/2021 [place] light chain disease (HHS/HCC) 12/14/2020 Idiopathic chronic gout without tophus 0 Sleep apnea 02/28/2020 Oral herpes simplex infection 05/03/2019 Sicca syndrome ([facility]/HCC) 05/03/2019 CKD (chronic kidney disease), stage IV (CMS/HCC HHS/HCC) 07/14/2010 Overview (09/11/2024): GFR typically 30s. Mostly recently 27. Creatinine climbing over the last couple years. Assessment & Plan (09/11/2024 12:07 PM DIVIDING MACHINE OPERATOR): Referral to nephrology. Likely multifactorial CKD. Will request assistance with optimizing treatment. Osteoarthrosis 11/20/2008 Generalized anxiety disorder 04/08/2004 Encounters Date Type Department Care Team Description 01/07/2025 7:30 AM CDT - 01/07/2025 11:59 PM CDT Hospital Encounter [facility] Radiation Oncology [address] [place] [address] [place] [address] Isaiah Mares MD Discharge Disposition: Home or Self Care (Routine Discharge) 01/04/2025 7:27 AM CDT - 01/04/2025 11:59 PM CDT Hospital Encounter [facility] Radiation Oncology [address] [place] [address] [place] [address] Isaiah Mares MD On Tx Discharge Disposition: Home or Self Care (Routine Discharge) 01/03/2025 10:40 AM CDT - 01/03/2025 11:59 PM CDT Hospital Encounter [facility] Radiation Oncology [address] [place] [address] [place] [address] Isaiah Mares MD Discharge Disposition: Home or Self Care (Routine Discharge) 01/03/2025 Scan Enablon INFO SRVCS Scanned, Doc Med Group 01/01/2025 Telephone [facility] Radiation Oncology [address] [place] [address] [place] [address] Isaiah Mares MD Cancer 12/27/2024 10:38 AM CDT - 12/27/2024 11:59 PM CDT Hospital Encounter [facility] Radiation Oncology [address] [place] [address] [place] [address] Isaiah Mares MD Discharge Disposition: Home or Self Care (Routine Discharge) 12/27/2024 Scan MG HEALTH INFO SRVCS Scanned, Doc Med Group 12/26/2024 4:00 PM CDT - 12/26/2024 11:59 PM CDT Hospital Encounter [facility] Radiation Oncology [address] [place] [address] [place] [address] Isaiah Mares MD Discharge Disposition: Home or Self Care (Routine Discharge) 12/20/2024 Scan MG HEALTH INFO SRVCS Scanned, Doc Med Group 12/18/2024 1:27 PM DIVIDING MACHINE OPERATOR - 12/18/2024 11:59 PM DIVIDING MACHINE OPERATOR Hospital Encounter [facility] Radiation Oncology [address] [place] [address] [place] [address] Isaiah Mares MD Discharge Disposition: Home or Self Care (Routine Discharge) 12/18/2024 Travel 12/14/2024 8:00 AM DIVIDING MACHINE OPERATOR - 12/14/2024 11:59 PM DIVIDING MACHINE OPERATOR Hospital Encounter [facility] Radiation Oncology [address] [place] [address] [place] [address] Isaiah Mares MD Consult Discharge Disposition: Home or Self Care (Routine Discharge) 12/14/2024 Telephone [facility] Radiation Oncology [address] [place] [address] [place] [address] Isaiah Mares MD Question 12/14/2024 Travel 12/13/2024 Scan MG HEALTH INFO SRVCS Scanned, Doc [facility] 12/06/2024 Telephone [facility] Radiation Oncology [address] [place] [address] [place] [address] Isaiah Mares MD Appointment Request 12/06/2024 Orders Only [facility] [place] [address] Sharad Huffman MD 11/26/2024 Scan MG HEALTH INFO SRVCS Scanned, [facility] 11/13/2024 Scan [facility] HEALTH INFO SRVCS Scanned, [facility] 11/12/2024 Scan [facility] HEALTH INFO SRVCS Scanned, [facility] 11/01/2024 Scan [facility] HEALTH INFO SRVCS Scanned, Doc [facility] 11/01/[address] [place] [address] Sima Mistry MD Medication 10/26/[address] [place] [address] Sima Mistry MD Orders 10/23/2024 Scan MG HEALTH INFO SRVCS Scanned, Doc [facility] 10/23/[address] [place] [address] Sima Mistry MD Orders ([facility]) from Last 3 Months Immunizations Name Administration Dates Next Due Influenza (Generic) 07/25/2020,08/05/2011 Pneumococcal (Pneumovax 23) 09/01/2020 Pneumococcal (Prevnar 13) 02/11/2014 Shingrix 05/15/2021 Tdap (Generic) 02/11/2014 Social History Tobacco Use Types Packs/Day Years Used Date Smoking Tobacco: Former Cigarettes 0.5 15 1 960 - 1975 Passive Smoke Exposure: Never Smokeless Tobacco: Never Tobacco Cessation:Counseling Given: Not Answered Alcohol Use Standard Drinks/Week Comments Not Currently 0 (1 standard drink = 0.6 oz pur e alcohol) PHQ-2 Answer Date Recorded Patient Health Questionnaire-2 Score 1 08/30/2024 Sex and Gender Information Value Date Recorded Sex Assigned at Not on file Legal Sex Male 2:08 PM CDT Gender Identity Not on file Sexual Orientation Not on file Last Filed Vital Signs Vital Sign Reading Time Taken Comments Blood Pressure 185/87 01/04/2025 8:05 AM CDT Pulse 60 01/04/2025 8:05 AM CDT Temperature 36.6 C (97.9 F) 09/11/2024 1:12 PM DIVIDING MACHINE OPERATOR Respiratory Rate 20 09/11/2024 1:12 PM DIVIDING MACHINE OPERATOR Oxygen Saturation 97% 01/04/2025 8:05 AM CDT Inhaled Oxygen Concentration - - Weight 91.3 kg (201 lb 3.2 oz) 12/14/2024 8:40 A M DIVIDING MACHINE OPERATOR Height 175.3 cm (5' 9 ) 01/04/2025 8:05 AM CDT Body Mass Index 29.71 12/14/2024 8:40 AM DIVIDING MACHINE OPERATOR Plan of Treatment Upcoming Encounters Date Type Department Care Team (Late st Contact Info) Description 04/23/2025 1:30 PM CDT Appointment [facility] Radiation Oncology [address] [place] [address] [place] [address] Isaiah Mares MD [address] [place] [id number] Health Maintenance Due Date Last Done Comments COVID-19 Vaccine (#1) 1949 Diabetes: Retinopathy Eye Exam 1962 Annual Medicare Wellness Visit 2009 RSV Immunization or 60+ Years (1 - 1-dose 75+ series) 2019 Zoster Vaccines (2 of 2) 07/10/2021 05/15/2021 DTaP, Tdap and Td Vaccines (2 - Td or Tdap) 02/12/2024 02/11/2014 PHQ-2 (Physician [place]) 10/17/2024 08/30/2024 Hemoglobin A1C 02/27/2025 08/30/2024, 05/3 10/2023, 10/28/2023, Additional history exists Kidney Health Evaluation 03/08/2025 03/08/2024 Lipid Panel 08/30/2025 08/30/2024, 10/28/2023 Pneumococcal Vaccine: 65+ Years Completed 09/01/2020, 02/11/2014 Meningococcal B Vaccine Aged Out No l onger eligible based on patient's age to complete this topic Meningococcal Vaccine Aged Out No terence kamryn eligible based on patient's age to complete this topic RSV Immunizations Under 20 Months Aged Out No longer eligible based on patient's age to complete this topic Procedures Procedure Name Priority Date/Time Associated Diagnosis Comments RAD ONC ARIA COURSE SUMMARY Routine 01/10/2025 3:11 PM CDT RAD ONC ARIA SESSION SUMMARY Routine 01/07/2025 7:59 AM CDT RAD ONC ARIA SESSION SUMMARY Routine 01/04/2025 7:56 AM CDT RAD ONC ARIA SESSION SUMMARY Routine 01/03/2025 11:23 AM CDT RAD ONC ARIA SESSION SUMMARY Routine 12/27/2024 11:22 AM CDT RAD ONC ARIA SESSION SUMMARY Routine 12/26/2024 4:38 PM CDT LIPID PANEL Routine 08/30/2024 12:12 PM DIVIDING MACHINE OPERATOR Mixed hyperlipidemia HEMOGLOBIN, GLYCOSYLATED Routine 08/30/2024 12:12 PM DIVIDING MACHINE OPERATOR Diabetes mellitus screening from Last 3 Months or Most Recently Relevant to Health Maintenance Results * Rad Onc Aria Course Summary (01/10/2025 3:11 PM CDT) Course ID C1 ARIA VARIA N RAD ONCOLOGY Course Intent Palliative ARIA VARIAN RAD ONCOLOGY Treatment Elapsed Days 12 ARIA VARIAN RAD ONCOLOGY Treatment Dates First Treatment Date: 12/26/2024 Last Treatment Delivered: 01/07/2025 ARIA VARIAN RAD ONCOLOGY Reference Point ID Femur_R ARIA VARIAN RAD ONCOLOGY Dosage Given To Date Gy 20 ARIA VARIAN RAD ONCOLOGY Reference Point ID Iliac_R ARIA VARIAN RAD ONCOLOGY Dosage Given To Date Gy 20 ARIA VARIAN RAD ONCOLOGY Plan ID Femur_R ARIA VARIA N RAD ONCOLOGY Treatment Modality Femur_R ARIA VARIAN RAD ONCOLOGY Fractions Treated and Prescribed 5 of 5 ARIA VARIAN RAD ONCOLOGY Plan ID Iliac_R ARIA VARIA N RAD ONCOLOGY Treatment Modality Iliac_R ARIA VARIAN RAD ONCOLOGY Fractions Treated and Prescribed 5 of 5 ARIA VARIAN RAD ONCOLOGY 01/10/2025 3:11 PM CDT us Ordering Provider External RADIATION ONCOLOGY OR DERABLES Edited Result - Final ARIA VARIAN RAD ONCOLOGY * Rad Onc Aria Session Summary (01/07/2025 7:59 AM CDT) Course ID C1 ARIA VARIA N RAD ONCOLOGY Course Intent Palliative ARIA VARIAN RAD ONCOLOGY Treatment Elapsed Days 12 ARIA VARIAN RAD ONCOLOGY Treatment Dates First Treatment Date: 12/26/2024 Last Treatment Delivered: 01/07/2025 ARIA VARIAN RAD ONCOLOGY Reference Point ID Femur_R ARIA VARIAN RAD ONCOLOGY Dosage Given To Date Gy 20 ARIA VARIAN RAD ONCOLOGY Session Dosage Given Gy 4 ARIA VARIAN RAD ONCOLOGY Reference Point ID Iliac_R ARIA VARIAN RAD ONCOLOGY Dosage Given To Date Gy 20 ARIA VARIAN RAD ONCOLOGY Session Dosage Given Gy 4 ARIA VARIAN RAD ONCOLOGY Plan ID Femur_R ARIA VARIA N RAD ONCOLOGY Treatment Modality Femur_R ARIA VARIAN RAD ONCOLOGY Fractions Treated and Prescribed 5 of 5 ARIA VARIAN RAD ONCOLOGY Plan ID Iliac_R ARIA VARIA N RAD ONCOLOGY Treatment Modality Iliac_R ARIA VARIAN RAD ONCOLOGY Fractions Treated and Prescribed 5 of 5 ARIA VARIAN RAD ONCOLOGY 01/07/2025 7:59 AM CDT us Ordering Provider External RADIATION ONCOLOGY OR DERABLES Final Result ARIA VARIAN RAD ONCOLOGY * Rad Onc Aria Session Summary (01/04/2025 7:56 AM CDT) Course ID C1 ARIA VARIA N RAD ONCOLOGY Course Intent Palliative ARIA VARIAN RAD ONCOLOGY Treatment Elapsed Days 9 ARIA VARIAN RAD ONCOLOGY Treatment Dates First Treatment Date: 12/26/2024 Last Treatment Delivered: 01/04/2025 ARIA VARIAN RAD ONCOLOGY Reference Point ID Femur_R ARIA VARIAN RAD ONCOLOGY Dosage Given To Date Gy 16 ARIA VARIAN RAD ONCOLOGY Session Dosage Given Gy 4 ARIA VARIAN RAD ONCOLOGY Reference Point ID Iliac_R ARIA VARIAN RAD ONCOLOGY Dosage Given To Date Gy 16 ARIA VARIAN RAD ONCOLOGY Session Dosage Given Gy 4 ARIA VARIAN RAD ONCOLOGY Plan ID Femur_R ARIA VARIA N RAD ONCOLOGY Treatment Modality Femur_R ARIA VARIAN RAD ONCOLOGY Fractions Treated and Prescribed 4 of 5 ARIA VARIAN RAD ONCOLOGY Plan ID Iliac_R ARIA VARIA N RAD ONCOLOGY Treatment Modality Iliac_R ARIA VARIAN RAD ONCOLOGY Fractions Treated and Prescribed 4 of 5 ARIA VARIAN RAD ONCOLOGY 01/04/2025 7:56 AM CDT us Ordering Provider External RADIATION ONCOLOGY OR DERABLES Final Result ARIA VARIAN RAD ONCOLOGY * Rad Onc Aria Session Summary (01/03/2025 11:23 AM CDT) Course ID C1 ARIA VARIA N RAD ONCOLOGY Course Intent Palliative ARIA VARIAN RAD ONCOLOGY Treatment Elapsed Days 8 ARIA VARIAN RAD ONCOLOGY Treatment Dates First Treatment Date: 12/26/2024 Last Treatment Delivered: 01/03/2025 ARIA VARIAN RAD ONCOLOGY Reference Point ID Femur_R ARIA VARIAN RAD ONCOLOGY Dosage Given To Date Gy 12 ARIA VARIAN RAD ONCOLOGY Session Dosage Given Gy 4 ARIA VARIAN RAD ONCOLOGY Reference Point ID Iliac_R ARIA VARIAN RAD ONCOLOGY Dosage Given To Date Gy 12 ARIA VARIAN RAD ONCOLOGY Session Dosage Given Gy 4 ARIA VARIAN RAD ONCOLOGY Plan ID Femur_R ARIA VARIA N RAD ONCOLOGY Treatment Modality Femur_R ARIA VARIAN RAD ONCOLOGY Fractions Treated and Prescribed 3 of 5 ARIA VARIAN RAD ONCOLOGY Plan ID Iliac_R ARIA VARIA N RAD ONCOLOGY Treatment Modality Iliac_R ARIA VARIAN RAD ONCOLOGY Fractions Treated and Prescribed 3 of 5 ARIA VARIAN RAD ONCOLOGY 01/03/2025 11:2 3 AM CDT us Ordering Provider External RADIATION ONCOLOGY OR DERABLES Final Result ARIA VARIAN RAD ONCOLOGY * Rad Onc Aria Session Summary (12/27/2024 11:22 AM CDT) Course ID C1 ARIA VARIA N RAD ONCOLOGY Course Intent Palliative ARIA VARIAN RAD ONCOLOGY Treatment Elapsed Days 1 ARIA VARIAN RAD ONCOLOGY Treatment Dates First Treatment Date: 12/26/2024 Last Treatment Delivered: 12/27/2024 ARIA VARIAN RAD ONCOLOGY Reference Point ID Femur_R ARIA VARIAN RAD ONCOLOGY Dosage Given To Date Gy 8 ARIA VARIAN RAD ONCOLOGY Session Dosage Given Gy 4 ARIA VARIAN RAD ONCOLOGY Reference Point ID Iliac_R ARIA VARIAN RAD ONCOLOGY Dosage Given To Date Gy 8 ARIA VARIAN RAD ONCOLOGY Session Dosage Given Gy 4 ARIA VARIAN RAD ONCOLOGY Plan ID Femur_R ARIA VARIA N RAD ONCOLOGY Treatment Modality Femur_R ARIA VARIAN RAD ONCOLOGY Fractions Treated and Prescribed 2 of 5 ARIA VARIAN RAD ONCOLOGY Plan ID Iliac_R ARIA VARIA N RAD ONCOLOGY Treatment Modality Iliac_R ARIA VARIAN RAD ONCOLOGY Fractions Treated and Prescribed 2 of 5 ARIA VARIAN RAD ONCOLOGY 12/27/2024 11:2 2 AM CDT us Ordering Provider External RADIATION ONCOLOGY OR DERABLES Final Result ARIA VARIAN RAD ONCOLOGY * Rad Onc Aria Session Summary (12/26/2024 4:38 PM CDT) Course ID C1 ARIA VARIA N RAD ONCOLOGY Course Intent Palliative ARIA VARIAN RAD ONCOLOGY Treatment Elapsed Days 0 ARIA VARIAN RAD ONCOLOGY Treatment Dates First Treatment Date: 12/26/2024 Last Treatment Delivered: 12/26/2024 ARIA VARIAN RAD ONCOLOGY Reference Point ID Femur_R ARIA VARIAN RAD ONCOLOGY Dosage Given To Date Gy 4 ARIA VARIAN RAD ONCOLOGY Session Dosage Given Gy 4 ARIA VARIAN RAD ONCOLOGY Reference Point ID Iliac_R ARIA VARIAN RAD ONCOLOGY Dosage Given To Date Gy 4 ARIA VARIAN RAD ONCOLOGY Session Dosage Given Gy 4 ARIA VARIAN RAD ONCOLOGY Plan ID Iliac_R ARIA VARIA N RAD ONCOLOGY Treatment Modality Iliac_R ARIA VARIAN RAD ONCOLOGY Fractions Treated and Prescribed 1 of 5 ARIA VARIAN RAD ONCOLOGY Plan ID Femur_R ARIA VARIA N RAD ONCOLOGY Treatment Modality Femur_R ARIA VARIAN RAD ONCOLOGY Fractions Treated and Prescribed 1 of 5 ARIA VARIAN RAD ONCOLOGY 12/26/2024 4:38 PM CDT us Ordering Provider External RADIATION ONCOLOGY OR DERABLES Final Result ARIA VARIAN RAD ONCOLOGY * (ABNORMAL) HEMOGLOBIN, GLYCOSYLATED (08/30/2024 12:12 PM DIVIDING MACHINE OPERATOR) HGB A1C 5.6 4.5 - 6.2 % 08/30/2024 7:53 PM DIVIDING MACHINE OPERATOR [facility] ESTIMATED AVG GLUCOSE 114(H) 74 - 106 MG/DL 08/30/2024 7:53 PM DIVIDING MACHINE OPERATOR [facility] 08/30/2024 12:1 2 PM DIVIDING MACHINE OPERATOR us Sima Mistry MD LABORATORY Final Re sult Performing Organization Address City/[facility]/ZIP Co de Phone Number MICHELLE TRACY FROHNA [address] [facility] [address], * LIPID PANEL (08/30/2024 12:12 PM DIVIDING MACHINE OPERATOR) CHOLESTEROL 154 <200 MG/DL 08/31/2024 10:49 AM [facility] TRIGLYCERIDES 40 <150 MG/DL 08/31/2024 10:49 AM [facility] HDL 93 >40 MG/DL 08/31/2024 10:49 AM [facility] LDL-C 53 <100 MG/DL 08/31/2024 10:49 AM [facility] VLDL CALCULATION 8 5 - 28 MG/DL 08/31/2024 10:49 AM [facility] CHOL/HDL RATIO 1.7 0.0 - 4.0 08/31/2024 10:49 AM [facility] LDL/HDL 0.6 0.41 - 2.13 08/31/2024 10:49 AM DIVIDING MACHINE OPERATOR [facility] NON HDL CHOLESTEROL 61 <140 MG/DL 08/31/2024 10:49 AM DIVIDING MACHINE OPERATOR [facility] 08/30/2024 12:1 2 PM DIVIDING MACHINE OPERATOR us Sima Mistry MD LABORATORY Final Re sult [facility] [address] [facility] [address], from Last 3 Months or Most Recently Relevant to Health Maintenance Insurance [employer] Care Teams Compressor Stations Superintendent Relationship Specialty Start Date End Date Sima Mistry MD [address] [place] [address] [id number] PCP - General FAMILY PRACTICE 08/21/24 Isaiah Mares MD [address] [place], [place] [address] Consulting Physician RADIATION ONCOLOGY 12/14/24
--- NOTE | 2025-01-21 05:09 | ED.FALL ---
HPI - Fall General Chief Complaint: Fall Stated Complaint: fall Time Seen by Provider: 01/21/25 04:59 Source: patient and RN notes reviewed Mode of arrival: EMS History of Present Illness HPI Narrative: Patient presents after a ground level fall. He denies LOC or hitting his head. He had complained of weakness. En route he complained of neck pain and EMS applied a C collar. Now he is complaining of pain due to the C collar. No paresthesias, chest pain, abdominal pain, or SOB. Had not yet taken HTN meds. 210/108 bp en route. Related Data Home Medications ?Medication ?Instructions ?Recorded ?Confirmed ?Last Taken ?Type acyclovir 400 mg tablet 400 mg PO .noon 09/29/24 09/29/24 09/28/24 History alprazolam 0.5 mg tablet 0.5 mg PO .q12 09/29/24 09/29/24 Unknown History amlodipine 10 mg tablet 10 mg PO .noon 09/29/24 09/29/24 09/28/24 History aspirin 325 mg tablet 325 mg PO .noon 09/29/24 09/29/24 09/28/24 History donepezil 10 mg tablet 10 mg PO HS 09/29/24 09/29/24 09/28/24 History escitalopram oxalate 5 mg tablet 5 mg PO .noon 09/29/24 09/29/24 09/28/24 History finasteride 5 mg tablet 5 mg PO .noon 09/29/24 09/29/24 09/28/24 History hydralazine 50 mg tablet 50 mg PO .COMPLEX 09/29/24 09/29/24 09/28/24 History levothyroxine 25 mcg tablet 25 mcg PO 0630 09/29/24 09/29/24 09/28/24 History lidocaine 5 % topical patch 1 patch transdermal Q24H 09/29/24 09/29/24 09/28/24 History lisinopril 20 mg tablet 20 mg PO .noon 09/29/24 09/29/24 09/28/24 History meclizine 25 mg tablet 25 mg PO TID PRN dizziness 09/29/24 09/29/24 Unknown History memantine 5 mg tablet 5 mg PO .noon 09/29/24 09/29/24 09/28/24 History nitroglycerin 0.4 mg sublingual 0.4 mg sublingual Q5M PRN chest 09/29/24 09/29/24 Unknown History tablet pain omeprazole 40 mg capsule,delayed 40 mg PO .noon 09/29/24 09/29/24 09/28/24 History release polyethylene glycol 3350 17 17 g PO .noon 09/29/24 09/29/24 09/28/24 History gram/dose oral powder ramelteon 8 mg tablet 8 mg PO HS 09/29/24 09/29/24 Unknown History rosuvastatin 20 mg tablet 20 mg PO .noon 09/29/24 09/29/24 09/28/24 History sennosides 8.6 mg-docusate sodium See Rx Instructions PO .COMPLEX 09/29/24 09/29/24 09/28/24 History 50 mg tablet (Stimulant Laxative Plus) tamsulosin 0.4 mg capsule 0.4 mg PO .COMPLEX 09/29/24 09/29/24 09/28/24 History zolpidem 5 mg tablet 5 mg PO HS 09/29/24 09/29/24 09/28/24 History Allergies Allergy/AdvReac Type Severity Reaction Status Date / Time No Known Allergies Allergy Verified 09/29/24 10:32 [facility] Past Medical History Medical History Multiple myeloma s/p radiation tx and starting chemo soon per RN to RN report from facility GERD (gastroesophageal reflux disease) Arthritis HTN (hypertension) Normal pressure hydrocephalus Social History Social History Social History: Full code per assisted living documentation (no POLST) Had a Masters education Smoking status: Never smoker Alcohol intake: never Substance use: former Do You Feel Safe in your Home?: No Lack of Transportation: No Lack of Food: Never True Current Housing: Decline to Answer Concerned About Future Housing: Decline to Answer Difficulty Paying Gas/Electric Bills: Decline to Answer Difficulty Paying for Meds: Decline to Answer Currently Unemployed: Decline to Answer Education: Decline to Answer Difficulty w/ Childcare or Family Care: Decline to Answer Living arrangements: assisted living Additional living arrangements comments: [facility] Additional occupation/education comments: 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 HEAD: Normocephalic, atraumatic. EYES: Non injected, non icteric ENT: Nares clear, no rhinorrhea or epistaxis. NECK: C collar in place CHEST: Speaking in full sentences. No respiratory distress. HEART: Regular rate and rhythm. . ABDOMEN: Soft, nondistended. EXTREMITIES: Moves extremities x4. SKIN: Warm, dry, no rash. NEURO: No focal deficits. Alert and oriented. Answering questions. PSYCH: Normal mood and affect. Course Vital Signs Vital signs: Vital Signs Temperature 97.9 F 01/21/25 04:08 Pulse Rate 86 01/21/25 04:08 Respiratory Rate 16 01/21/25 04:08 Blood Pressure 223/112 H 01/21/25 04:08 Pulse Oximetry 95 01/21/25 04:08 Oxygen Delivery Room Air 01/21/25 04:08 Temperature 97.8 F 01/21/25 07:00 Pulse Rate 76 01/21/25 07:30 Respiratory Rate 15 01/21/25 07:30 Blood Pressure 145/81 H 01/21/25 07:30 Pulse Oximetry 93 01/21/25 07:30 Oxygen Delivery Room Air 01/21/25 04:08 MDM - Fall MDM Narrative Medical decision making narrative: Patient presents after a fall. C/o neck pain en route with EMS. In the emergency department he is afebrile vital signs notable for significant hypertension, 223/112. Had not yet taken AM antihypertensives. Patient is on aspirin 325 per review of medication list from nursing facility however he is not on any other anticoagulation. Patient's creatinine is at his baseline consistent with chronic kidney disease. Patient has a normocytic anemia and thrombocytopenia. The anemia is stable from previous. The thrombocytopenia is slightly worse today but had been appreciated previously. Patient is reassessed at 7:00 a.[address].. Given the negative CT C-spine, his C-collar is removed and he is able to demonstrate moving his neck. He is sleepy but is able to awaken. He is able to still move his arms and his legs and says he is sore and achy but also cold and just wants to be covered back up. I suspect his somnolence is likely due to the morphine he was given especially given his age and it seems that he is likely opiate naive as he is not chronically on narcotic therapy. He is protecting his airway and BP much better. Advised f/u with PCP/facility outside medical sales representative regarding the finding on CT. Discharged back to facility with Rx for OTC analgesic meds. He does require a bit of time due to somnolence to be safely transported back. Lab Data Attestation: I reviewed the patient's lab results. 01/21/25 04:29 01/21/25 04:29 Labs: Lab Results 01/21/25 01/21/25 Range/Units 04:29 05:11 WBC 4.5 (4.5-10.0) K/mm3 RBC 3.85 L (4.6-6.20) M/mm3 Hgb 12.2 L (14.0-18.0) g/dL Hct 37.9 L (42.0-52.0) % MCV 98.4 (80-100) fl MCH 31.7 (26-34) pg MCHC 32.2 (32-36) g/dl RDW 15.1 H (11.5-14.5) % Plt Count 99 L (150-375) k/mm3 MPV 11.8 H (7.4-10.4) fl Immature Gran % (Auto) 0.2 (0-0.5) % Neut % (Auto) 70.8 (45.5-73.1) % Lymph % (Auto) 15.1 L (18.3-44.2) % [place] % (Auto) 9.2 H (2.6-8.5) % Eos % (Auto) 4.3 (0-4.4) % Baso % (Auto) 0.4 (0.2-1.2) % Lymph # (Auto) 0.67 L (0.9-3.2) K/mm3 [place] # (Auto) 0.4 (0.1-0.6) K/mm3 Eos # (Auto) 0.2 (0-0.3) K/mm3 Baso # (Auto) 0.0 (0.0-0.1) K/mm3 Abs Immat Gran (auto) 0.01 (0.00-0.031) K/mm3 Absolute Neuts (auto) 3.2 (1.3-6.7) K/mm3 Absolute Nucleated RBC 0.000 (0.0-0.012) K/mm3 Nucleated RBC % 0.0 (0.0-0.2) % % Immature Plt Fraction 6.3 (0.9-11.2) % PT 14.5 (11.1-14.7) Seconds INR 1.1 APTT 39.4 H (22.3-36.8) Seconds Sodium 136 L (137-145) mmol/L Potassium 4.7 (3.4-5.0) mmol/L Chloride 105 (98-107) mmol/L Carbon Dioxide 21 L (22-30) mmol/L Anion Gap 10 (4-12) mmol/L BUN 35 H (9-20) mg/dL Creatinine 2.01 H (0.7-1.3) mg/dL Estim Creat Clear Calc 29 ml/min Estimated GFR 32 L (59 - ) Glucose 122 H (65-110) mg/dL Calcium 8.8 (8.4-10.2) mg/dL Total Bilirubin 0.9 (0.2-1.3) mg/dL AST 21 (17-59) U/L ALT 9 (6-50) U/L Alkaline Phosphatase 95 (38-126) U/L Total Protein 7.0 (6.3-8.2) g/dL Albumin 4.1 (3.5-5.1) g/dL Urine Color Yellow (Yellow) Urine Appearance Clear (Clear) Urine pH 6.0 (5.0-9.0) Ur Specific [place] 1.010 (1.001-1.035) Urine Protein 2+ H (Negative) mg/dL Urine Glucose (UA) Negative (Negative) mg/dL Urine Ketones Negative (Negative) mg/dL Ur Blood (Man) Negative (Negative) Urine Nitrate Negative (Negative) Urine Bilirubin Negative (Negative) Urine Urobilinogen 0.2 (<2.0) mg/dL Leukocyte Esterase Rfl Negative (Negative) JUSTIN/UL Urine RBC 0-2 (0-2) /hpf Urine WBC 0-5 (0-3) /hpf Ur Squamous Epith Cells None seen (Few) /hpf Urine Bacteria None seen /hpf Urine Casts 0-2 Imaging Data Radiologist's impression: Impressions Cervical Spine CT 01/21/25 05:43 Impression: No fracture or subluxation of the cervical spine. Advanced degenerative spondylosis, especially at C5-C6 and C6-C7, as detailed above. Head CT 01/21/25 05:45 Impression: Hypodense area in the temporal lobe and insular cortex with some subtle gyriform hyperdensity suggests subacute infarct with laminar necrosis or possible petechial hemorrhage. Consider MR to further evaluate. Atrophy and chronic white matter changes, as above. ECG Data EKG #1: Attestation: I personally reviewed and interpreted this ECG as follows: ECG completion date: 01/21/25 ECG completion time: 04: Prior ECG tracings: available for review (EKG from 09/29/2024 with similar right bundle-branch block as well as similar appearance of depression in the lateral precordial leads V4 through V6) Interpretation: Normal sinus rhythm at a rate of 86 beats per minute. RI interval 141. QRS 163. QT/QTC 389/466. RBBB given QRS greater [id number]; RSR' M-shaped pattern in V1-V3; wide, slurred S wave in lateral leads (I, aVL, V5-6). There are depressions in the lateral precordial leads V4 V5 and V6. Discharge Plan Discharge Clinical Impression: Fall, Chronic kidney disease, Proteinuria, Right bundle branch block (RBBB), Normocytic anemia, Thrombocytopenia Patient Disposition: NH Long-Term/Asst Living Condition: Stable Instructions: Antibiotic Form, Chronic Kidney Disease (ED), Chronic Kidney Disease Diet (DC), Fall Prevention for Older Adults (ED), Anemia (ED), Thrombocytopenia (ED) Additional Instructions: Labs looked stable. No fractured bones in neck/skull in no bleeding in the brain. CT scan of brain did show: Hypodense area in the temporal lobe and insular cortex with some subtle gyriform hyperdensity suggests subacute infarct with laminar necrosis or possible petechial hemorrhage. Consider MR to further evaluate. Follow-up with primary care physician/facility outside medical sales representative. Return to the emergency department with any new or worsening symptoms. Patient likely to be floor and achy after a fall like this. Acetaminophen/Tylenol (maximum 4000 mg per day) is safe to take with NSAIDs (ibuprofen/Motrin) for pain relief. Patient Language: Thai Prescriptions: New ibuprofen 600 mg tablet 600 mg PO TID PRN (Reason: pain) Qty: 30 0RF acetaminophen 500 mg capsule 1,000 mg PO Q6H PRN (Reason: pain) Qty: 30 0RF No Action acyclovir 400 mg tablet 400 mg PO .noon alprazolam 0.5 mg tablet 0.5 mg PO .q12 amlodipine 10 mg tablet 10 mg PO .noon aspirin 325 mg tablet 325 mg PO .noon donepezil 10 mg tablet 10 mg PO HS escitalopram oxalate 5 mg tablet 5 mg PO .noon finasteride 5 mg tablet 5 mg PO .noon hydralazine 50 mg tablet 50 mg PO .COMPLEX Rx Instructions: 50 mg orally 12, 1600, 2000 with food; levothyroxine 25 mcg tablet 25 mcg PO 0630 lidocaine 5 % adhesive patch,medicated 1 patch transdermal Q24H lisinopril 20 mg tablet 20 mg PO .noon sennosides-docusate sodium [Stimulant Laxative Plus] 8.6-50 mg tablet See Rx Instructions PO .COMPLEX Rx Instructions: orally 1000 and 1600; meclizine 25 mg tablet 25 mg PO TID PRN (Reason: dizziness) memantine 5 mg tablet 5 mg PO .noon nitroglycerin 0.4 mg tablet, sublingual 0.4 mg sublingual Q5M PRN (Reason: chest pain) omeprazole 40 mg capsule,delayed release(DR/EC) 40 mg PO .noon polyethylene glycol 3350 17 gram/dose powder 17 g PO .noon ramelteon 8 mg tablet 8 mg PO HS rosuvastatin 20 mg tablet 20 mg PO .noon tamsulosin 0.4 mg capsule 0.4 mg PO .COMPLEX Rx Instructions: 0.4 mg orally 1200 and 1600; zolpidem 5 mg tablet 5 mg PO HS cyanocobalamin (vitamin B-12) 1,000 mcg/mL Solution See Rx Instructions .ROUTE .COMPLEX Qty: 10 0RF Rx Instructions: 1,000 mcg intramuscularly daily x 6 days then weekly x 1 month then monthly afterwards to continue Follow-up/Referrals: Fidelia,Sima Marlow MD [Primary Care Provider] - Stand Alone Forms: Group Home Discharge Time of Disposition: 07:08
[2025-01-21 05:10] LABS: Alanine Aminotransferase 9 U/L (6-50); Albumin Level 4.1 g/dL (3.5-5.1); Alkaline Phosphatase 95 U/L (38-126); Anion Gap 10 mmol/L (4-12); Aspartate Amino Transferase 21 U/L (17-59); Bilirubin,Total 0.9 mg/dL (0.2-1.3); Blood Urea Nitrogen 35 mg/dL (9-20); Calcium 8.8 mg/dL (8.4-10.2); Carbon Dioxide 21 mmol/L (22-30); Chloride 105 mmol/L (98-107); Estimated CRCL calculation 29 ml/min; Estimated Glomerular Filt Rate 32; Glucose 122 mg/dL (65-110); Potassium 4.7 mmol/L (3.4-5.0); Sodium 136 mmol/L (137-145)
[2025-01-21 05:30] LABS: Add Urine Microscopic? YES; Appearance Urine Clear (Clear); Bacteria Urine None Seen /hpf; Bilirubin Urine Negative (Negative); Blood Urine Negative (Negative); Color Urine Yellow (Yellow); Glucose Urine UA Negative (Negative); Ketones Urine Negative (Negative); Leukocyte Esterase Ur Negative LEU/UL (Negative); Nitrate Urine Negative (Negative); Non Pathogenic Casts 0-2; Protein Urine 2+ mg/dL (Negative); RBC Urine 0-2 /hpf (0-2); Squamous Epithelial Cell Urine None Seen /hpf (Few); Urobilinogen Urine 0.2 mg/dL (<2.0); WBC Urine 0-5 /hpf (0-3)
[2025-01-21] MEDS: MORPHINE SULFATE (*CRX) 4 MG/ML INJ IV PUSH (05:48)
--- NOTE | 2025-01-21 07:45 | PC.NURSE ---
called [facility] to make them aware of DC and they report they do not have transportation. Called all 3 contacts and call went right to voicemail
--- NOTE | 2025-01-21 07:55 | PCCCNOTE ---
Pt's nurse called, stated pt's facility [facility] could not pick him up nor could the family. Provided a taxi voucher for transportation to facility to the ED nurse.terence
--- NOTE | 2025-01-21 07:56 | PC.NURSE ---
Cab voucher given by care coordination and attempted to place pt in wc but pt is having difficulty staying awake. ERP reports he received morphine and has very sleeping since receiving the medication. Will wait until medication wears off and pt more awake before calling cab.
--- NOTE | 2025-01-21 09:57 | PC.NURSE ---
awake got self out of bed and found ambulating in room. Assisted pt to bathroom
--- NOTE | 2025-01-21 10:32 | PC.NURSE ---
Pt up in chair, drank cup of coffee but refused breakfast tray. Pt reports he is ready to go back to the [facility]. Called and spoke with Darlene the field marketing director and informed her pt is coming back by cab and she reports a INSURANCE LEGAL ASSISTANT will be waiting to assist him inside. Pt and staff voice understanding to DC instruction and DC packet sent with pt
== END 2025-01-21 10:48 ==
PROVIDERS: Emergency Provider Student in an Organized Health Care Education/Training Program; PCP Student in an Organized Health Care Education/Training Program
DX: S19.9XXA Unspecified injury of neck, initial encounter (principal); I12.9 Hypertensive chronic kidney disease with stage 1 through stage 4 chronic kidney disease, or unspecified chronic kidney disease; N18.9 Chronic kidney disease, unspecified; R80.9 Proteinuria, unspecified; I45.10 Unspecified right bundle-branch block; D64.9 Anemia, unspecified; D69.6 Thrombocytopenia, unspecified; G91.2 (Idiopathic) normal pressure hydrocephalus; K21.9 Gastro-esophageal reflux disease without esophagitis; M19.90 Unspecified osteoarthritis, unspecified site; Z92.3 Personal history of irradiation; Z85.79 Personal history of other malignant neoplasms of lymphoid, hematopoietic and related tissues; Z79.82 Long term (current) use of aspirin; Z79.899 Other long term (current) drug therapy; W19.XXXA Unspecified fall, initial encounter; M47.812 Spondylosis without myelopathy or radiculopathy, cervical region; R94.31 Abnormal electrocardiogram [ECG] [EKG]
CPT/HCPCS: 36415; 70450; 72125; 80053; 81001; 85025; 85055; 85610; 85730; 93005; 96374; 99284; J2270

== ENCOUNTER 2025-01-30 10:04 | Emergency (ER) | payer OTHER, SELFPAY ==
--- NOTE | ~2025-01-30 | XR_ITS ---
AP and lateral views of the left tibia/fibula Clinical History: Trauma Findings: No acute fracture or dislocation is seen. Osseous alignment is anatomic. Joint spaces are p reserved without significant erosive or degenerative change. Soft tissues are unremarkable. Impression: Unremarkable left tib-fib radiographs. Reviewed, dictated and finalized at [facility]. Impression: Unremarkable left tib-fib radiographs.
--- NOTE | ~2025-01-30 | XR_ITS ---
HISTORY: fall, R leg injury, hasn't walked COMPARISON: None TECHNIQUE: Frontal views of the pelvis and proximal femurs were performed FINDINGS: Diffuse bony demineralization is noted. Significant degenerative disease within the visualized portion of the lumbar spine. Bilateral hip prostheses are present. Cerclage wires are present within the left femoral stem. No discrete periprosthetic fracture is appreciated. Vascular calcifications are also noted. IMPRESSION: Bilateral hip prostheses without a discrete periprosthetic fracture identified. Reviewed, dictated and finalized at location [facility].
--- NOTE | ~2025-01-30 | CT_ITS ---
EXAMINATION: CT brain wo con DATE: 01/30/2025 12:16 INDICATION: Fall TECHNIQUE: Computed tomography (CT) of the head was performed without intravenous contrast. Sagittal and coronal reconstructions were performed. The mA was adjusted according to patient size. Iterative reconstruction technique was employed. The dose-length product was 605.33 mGy-cm. COMPARISON: head CT dated 01/21/2025 and 09/29/2024 and brain MR dated 09/29/2024 FINDINGS: No fracture. Again seen is a moderate-sized region of cytotoxic edema at the lateral aspect of the ri ght temporal lobe consistent with subacute infarct, new since 09/29/2024. There is associated gyrifor m linear high attenuation consistent with associated laminar necrosis versus petechial hemorrhage. No new acute infarct or acute intracranial hemorrhage. No abnormal extra axial fluid collection. There is moderate scattered white matter hypoattenuation consistent with chronic small vessel ischemic dise ase. Stable appearance of chronic enlargement of the third ventricle and bodies but not the temporal horns of the lateral ventricles most likely related to moderate central predominant diffuse volume l oss. No mass/mass effect. The orbits, paranasal sinuses and mastoid air cells are normal. IMPRESSION: 1. No significant interval change in a moderate-sized region of evolving subacute infarct in the righ t temporal lobe with likely associated laminar necrosis versus petechial hemorrhage. 2. Age-related changes including moderate diffuse volume loss and moderate scattered white matter hyp oattenuation consistent with chronic small vessel ischemic disease. Reviewed, dictated and finalized at location [facility]. IMPRESSION: 1. No significant interval change in a moderate-sized region of evolving subacu te infarct in the right temporal lobe with likely associated laminar necrosis v ersus petechial hemorrhage. 2. Age-related changes including moderate diffuse volume loss and moderate scat tered white matter hypoattenuation consistent with chronic small vessel ischemi c disease.
--- NOTE | ~2025-01-30 | CT_ITS ---
History: Fall PROCEDURE: CT cervical spine without intravenous contrast. COMPARISON: None TECHNIQUE: Multiple contiguous axial images of the cervical spine were performed without the administration of i ntravenous contrast. DLP: 455 mGy-cm FINDINGS: Straightening and slight reversal of the normal curvature of the cervical spine is identified, likely muscular in origin. Severe degenerative disease is identified, with osteophyte formation, disc space narrowing and endpla te changes and vacuum phenomena. No acute fracture is appreciated. Severe facet arthropathy is noted. Biapical scarring is also present, as is densely calcified atherosclerotic disease. Impression: Severe degenerative disease, without acute fracture. Reviewed, dictated and finalized at location [facility]. Impression: Severe degenerative disease, without acute fracture.
[2025-01-30 10:16] VITALS: BP 187/109; PULSE 77; RESP 16; TEMP 36.7; O2SAT 96
--- OUTSIDE RECORDS SUMMARY | 2025-01-30 11:05 | XMS_ITS | Encounter Summary ---
Author Organization [facility] Address [facility] [place] [address] Care Team Providers Care Window And Siding Craftsman Name Role Phone Sima Mistry MD Primary Care Provider + Isaiah Mares MD Unavailable Encounter Details Date Type Department Care Team (Latest Contact Info) Description 01/29/2025 Scan HEALTH INFO [facility] Scanned, Doc Med Group Social History Tobacco Use Types Packs/Day Years Used Date Smoking Tobacco: Former Cigarettes 0.5 15 1 960 - 1975 Passive Smoke Exposure: Never Smokeless Tobacco: Never Alcohol Use Standard Drinks/Week Comments Not Currently 0 (1 standard drink = 0.6 oz pur e alcohol) PHQ-2 Answer Date Recorded Patient Health Questionnaire-2 Score 1 08/30/2024 Sex and Gender Information Value Date Recorded Sex Assigned at Not on file Legal Sex Male 2:08 PM CDT Gender Identity Not on file Sexual Orientation Not on file documented as of this encounter Plan of Treatment Upcoming Encounters Date Type Department Care Team (Late st Contact Info) Description 04/23/2025 1:30 PM CDT Appointment [facility] Radiation Oncology [address] [place] [address] [place] [address] Isaiah Mares MD [address] [place] [address] [place] [id number] documented as of this encounter Visit Diagnoses Not on filedocumented in this encounter Care Teams Window And Siding Craftsman Relationship Specialty Start Date End Date Sima Mistry MD [address] [place] [address] PCP - General FAMILY PRACTICE 08/21/24 Isaiah Mares MD [address] [place] [address] Consulting Physician RADIATION ONCOLOGY 12/14/24 documented as of this encounter
--- OUTSIDE RECORDS SUMMARY | 2025-01-30 11:05 | XMS_ITS | Clinical Summary ---
Author Organization [facility] Address Formerly [facility] [place] [address] Care Team Providers Care Construction Management Assistant Name Role Phone Sima Mistry MD Primary [...] 08/2024. Assessment & Plan (09/11/2024 1:43 PM ASSOCIATE PUBLISHER): New dx. Not controlled. Start levothyroxine 25 mcg daily. Repeat lab next visit. Essential hypertension 08/30/2024 Overview (08/30/2024): He is taking lisinopril 20 mg daily, amlodipine 10 mg daily. Assessment & Plan (09/11/2024 1:42 PM ASSOCIATE PUBLISHER): Controlled. Cont lisinopril, amlodipine. Requested monthly record of blood pressures from assisted living. Check three times weekly. Assessment & Plan (08/30/2024 12:13 PM ASSOCIATE PUBLISHER): Chronic and controlled. Continue amlodipine and lisinopril. CMP ordered. Gastroesophageal reflux disease without esophagi tis 08/30/2024 Overview (08/30/2024): Takes omeprazole. Assessment & Plan (08/30/2024 12:13 PM ASSOCIATE PUBLISHER): Will evaluate records to determine how long he has been taking this and whether it is still needed. 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 Symptoms have generally been well-managed. Assessment & Plan (08/30/2024 12:12 PM ASSOCIATE PUBLISHER): Chronic. Controlled. Continue Lexapro. Dementia 08/30/2024 Overview (08/30/2024): He is taking memantine and donepezil. Was doing independently in [place] until last month. His daughter, Marcie would come to visit and try to get him to take his medications regularly but she could not visit every day. They do not believe he was getting his medications regularly. He is now living in assisted living and they are dispensing his medications. Has a POA, but not certain if activated. It was also completed in [place]. Assessment & Plan (09/11/2024 1:42 PM ASSOCIATE PUBLISHER): Chronic. Requested updated POA records. They will look into this. Cont donepezil and memantine. Assessment & Plan (08/30/2024 12:13 PM ASSOCIATE PUBLISHER): Chronic. Will acquire records to see how this was diagnosed. He is alert and oriented and has decision-making ability currently. Continue donepezil and memantine and encouraged him to complete POA locally. Will check TSH and B12 as well. Multiple myeloma ([facility]/HCC [facility]/HCC) 08/30/2024 Overview (09/11/2024): Per outside records, presented February 2021 with anemia, proteinurea and worsening renal insufficiency. On watchful waiting since January 2022 with disease in [facility]. Saw Dr. Espino through [facility] last in 08/2023. Assessment & Plan (09/11/2024 12:08 PM ASSOCIATE PUBLISHER): Patient was lost to follow up. Will reestablish heme/onc locally for ongoing management. Assessment & Plan (08/30/2024 12:12 PM ASSOCIATE PUBLISHER): Will obtain records to evaluate chronicity and determine what needs he has Mixed hyperlipidemia 08/30/2024 Overview (08/30/2024): He is taking rosuvastatin 20 mg daily. Assessment & Plan (08/30/2024 12:12 PM ASSOCIATE PUBLISHER): Will check CMP and lipid panel to confirm chronicity and control. Continue rosuvastatin 20 mg daily. Primary insomnia 08/30/2024 Overview (09/11/2024): Daughter was not aware that he was being prescribed Ambien, ramelteon, alprazolam. She is not certain that he was taking this regularly at his home anyway. Sleeping well despite coming off medication. Assessment & Plan (08/30/2024 12:11 PM ASSOCIATE PUBLISHER): Given risk factors and dementia recommend against taking any sleep aids. Family is agreeable. Discontinue all of these in favor of melatonin as needed. BPH (benign prostatic hyperplasia) 08/30/2024 Overview (09/11/2024): Patient is taking finasteride and tamsulosin. Urgency. Has not been wearing depends but has them. Assessment & Plan (08/30/2024 12:11 PM ASSOCIATE PUBLISHER): Chronic. Reasonably controlled. Continue finasteride and tamsulosin. Lymphedema 08/30/2024 Overview (08/30/2024): Has been worse recently. Daughter is uncertain when it began. Assessment & Plan (08/30/2024 12:15 PM ASSOCIATE PUBLISHER): Uncertain chronicity. Will obtain CMP to evaluate for liver and kidney dysfunction. No known cardiac history. Recommend low-salt diet and compression stockings in the meantime. Hypertensive heart disease w ith heart failure ([facility]) 08/30/2024 Overview (09/11/2024): Last EF in 2023 was 65%. Acute stroke due to ischemia ([facility] HHS/[facility]) 0 03/16/2024 Cerebral ventriculomegaly 12/10/2023 Falls frequently 12/08/2023 Thrombocytopenia, unspecified 01/18/2022 Overview (09/11/2024): Platelets typically run 140s. Atrial fibrillation ([facility] H[facility]) 07/25/2021 Type 2 diabetes mellitus wit h stage 3 chronic kidney disease, without long-term current use of insulin ([facility]) 07/25/2021 Overview (09/11/2024): A1c 6.8% in 2019. Ever since that time, has been low <6%. Not on medication for management, diet controlled. Bilateral leg edema 06/04/2021 [place] light chain disease (HHS/HCC) 12/14/2020 Idiopathic chronic gout without tophus 0 Sleep apnea 02/28/2020 Oral herpes simplex infection 05/03/2019 Sicca syndrome ([facility]/HCC) 05/03/2019 CKD (chronic kidney disease), stage IV ([facility]CC [facility]/HCC) 07/14/2010 Overview (09/11/2024): GFR typically 30s. Mostly recently 27. Creatinine climbing over the last couple years. Assessment & Plan (09/11/2024 12:07 PM ASSOCIATE PUBLISHER): Referral to nephrology. Likely multifactorial CKD. Will request assistance with optimizing treatment. Osteoarthrosis 11/20/2008 Generalized anxiety disorder 04/08/2004 Encounters Date Type Department Care Team Description 01/29/2025 Scan [facility] INFO SRVCS Scanned, Doc Med Group 01/29/2025 Telephone [facility] Medical Group Family [facility] [address] [place] [id number] Sima Mistry MD Appointment Request (Declined AWV) 01/25/2025 Scan [facility] HEALTH INFO SRVCS Scanned, Doc Med Group 01/21/2025 Scan [facility] HE[facility] INFO SRVCS Scanned, Doc Med Group CT (SCAN) 01/07/2025 7:30 AM CDT - 01/07/2025 11:59 PM CDT Hospital Encounter [facility] Radiation Oncology [address] [place] [address] [place] [address] Isaiah Mares MD Discharge Disposition: Home or Self Care (Routine Discharge) 01/04/2025 7:27 AM CDT - 01/04/2025 11:59 PM CDT Hospital Encounter [facility] Radiation Oncology [address] [place] [address] [place] [address] Isaiah Mares MD On Tx Discharge Disposition: Home or Self Care (Routine Discharge) 01/03/2025 10:40 AM CDT - 01/03/2025 11:59 PM CDT Hospital Encounter [facility] Radiation Oncology [address] [place] [address] [place] [address] Isaiah Mares MD Discharge Disposition: Home or Self Care (Routine Discharge) 01/03/2025 Scan [facility] HEALTH INFO SRVCS Scanned, Doc Med Group 01/01/2025 Telephone [facility] Radiation Oncology [address] [place] [address] [place] [address] Isaiah Mares MD Cancer 12/27/2024 10:38 AM CDT - 12/27/2024 11:59 PM CDT Hospital Encounter [facility] Oncology [address] [place] [address] [place] [address] Isaiah Mares MD Discharge Disposition: Home or Self Care (Routine Discharge) 12/27/2024 Scan [facility] HEALTH INFO SRVCS Scanned, Doc Med Group 12/26/2024 4:00 PM CDT - 12/26/2024 11:59 PM CDT Hospital Encounter [facility] Radiation Oncology [address] [place] [address] [place] [address] Isaiah Mares MD Discharge Disposition: Home or Self Care (Routine Discharge) 12/20/2024 Scan [facility] INFO SRVCS Scanned, Doc Med Group 12/18/2024 1:27 PM ASSOCIATE PUBLISHER - 12/18/2024 11:59 PM ASSOCIATE PUBLISHER Hospital Encounter [facility] Radiation Oncology [address] [place] [address] [place] [address] Isaiah Mares MD Discharge Disposition: Home or Self Care (Routine Discharge) 12/18/2024 Travel 12/14/2024 8:00 AM ASSOCIATE PUBLISHER - 12/14/2024 11:59 PM ASSOCIATE PUBLISHER Hospital Encounter [facility] Radiation Oncology [address] [place] [address] [place] [address] Isaiah Mares MD Consult Discharge Disposition: Home or Self Care (Routine Discharge) 12/14/2024 Telephone [facility] Radiation Oncology [address] [place] [address] [place] [address] Isaiah Mares MD Question 12/14/2024 Travel 12/13/2024 Scan [facility] HEALTH INFO SRVCS Scanned, Doc Med Group 12/06/2024 Telephone [facility] Radiation Oncology [address] [facility] [place] [address] Isaiah Mares MD Appointment Request 12/06/2024 Orders Only [facility] Central Scheduling [address] [place] [place] [address] Sharad Huffman MD 11/26/2024 Scan [facility] INFO SRVCS Scanned, Doc Med Group 11/13/2024 Scan [facility] INFO SRVCS Scanned, Doc Med Group 11/12/2024 Scan [facility] INFO SRVCS Scanned, Doc Med Group 11/01/2024 Scan [facility] HEALTH INFO SRVCS Scanned, Doc Med Group 11/01/2024 Telephone [facility] Medical Group Family Medicine [facility] [address] [address] Sima Mistry MD Medication from Last 3 Months Immunizations Immunization Administration Dates Next Due Influenza (Generic) 07/25/2020,08/05/2011 [...] 36.6 C (97.9 F) 09/11/2024 1:12 PM ASSOCIATE PUBLISHER Respiratory Rate 20 09/11/2024 1:12 PM ASSOCIATE PUBLISHER Oxygen Saturation 97% 01/04/2025 8:05 AM CDT Inhaled Oxygen Concentration - - Weight 91.3 kg (201 lb 3.2 oz) 12/14/2024 8:40 A M ASSOCIATE PUBLISHER Height 175.3 cm (5' 9 ) 01/04/2025 8:05 AM CDT Body Mass Index 29.71 12/14/2024 8:40 AM ASSOCIATE PUBLISHER Plan of Treatment Upcoming Encounters Date Type Department Care Team (Late st Contact Info) Description 04/23/2025 1:30 PM CDT Appointment [facility] Radiation Oncology [address] [place] [address] [place] [address] Isaiah Mares MD [address] [place] [phone] Health Maintenance Due Date Last Done Comments COVID-19 Vaccine (#1) 1950 Diabetes: Retinopathy Eye Exam 1962 RSV Immunization or 60+ Years (1 - 1-dose 75+ series) 2019 Zoster Vaccines (2 of 2) 07/10/2021 05/15/2021 DTaP, Tdap and Td Vaccines (2 - Td or Tdap) 02/12/2024 02/11/2014 PHQ-2 (Physician [place]) 10/17/2024 08/30/2024 Hemoglobin A1C 02/27/2025 08/30/2024, 05/3 10/2023, 10/28/2023, Additional history exists Kidney Health Evaluation 03/08/2025 03/08/2024 Lipid Panel 08/30/2025 08/30/2024, 10/28/2023 Annual Medicare Wellness Visit 01/29/2026 Postponed from 2009 (Future Appointment) Pneumococcal Vaccine: 50+ Years Completed 09/01/2020, 02/11/2014 Meningococcal B Vaccine Aged Out No l onger eligible based on patient's age to complete this topic Meningococcal Vaccine Aged Out No terence kamryn eligible based on patient's age to complete this topic RSV Immunizations Under 20 Months Aged Out No longer eligible based on patient's age to complete this topic Procedures Procedure Name Priority Date/Time Associated Diagnosis Comments CT GENERIC 01/21/2025 CT GENERIC 01/21/2025 RAD ONC ARIA COURSE SUMMARY Routine 01/10/2025 [...] CDT LIPID PANEL Routine 08/30/2024 12:12 PM ASSOCIATE PUBLISHER Mixed hyperlipidemia HEMOGLOBIN, GLYCOSYLATED Routine 08/30/2024 12:12 PM ASSOCIATE PUBLISHER Diabetes mellitus screening from Last 3 Months or Most Recently Relevant to Health Maintenance Results * CT GENERIC (01/21/2025) Only the most recent of2 resultswithin the time period is included. Anatomical Region Laterality Modality Other 01/21/2025 us Doc Med Group Scanned SCANNING Final Resu lt * Rad Onc Aria Course Summary (01/10/2025 [...] * (ABNORMAL) HEMOGLOBIN, GLYCOSYLATED (08/30/2024 12:12 PM ASSOCIATE PUBLISHER) HGB A1C 5.6 4.5 - 6.2 % 08/30/2024 7:53 PM ASSOCIATE PUBLISHER [facility] ESTIMATED AVG GLUCOSE 114(H) 74 - 106 MG/DL 08/30/2024 7:53 PM ASSOCIATE PUBLISHER [facility] 08/30/2024 12:1 2 PM ASSOCIATE PUBLISHER Sima Mistry MD LABORATORY Final Re sult [facility] [address] [place] [address], * LIPID PANEL (08/30/2024 12:12 PM ASSOCIATE PUBLISHER) CHOLESTEROL 154 <200 MG/DL 08/31/2024 10:49 AM ASSOCIATE PUBLISHER [facility] TRIGLYCERIDES 40 <150 MG/DL 08/31/2024 10:49 AM [facility] HDL 93 >40 MG/DL 08/31/2024 10:49 AM ASSOCIATE PUBLISHER [facility] LDL-C 53 <100 MG/DL 08/31/2024 10:49 AM ASSOCIATE PUBLISHER [facility] VLDL CALCULATION 8 5 - 28 MG/DL 08/31/2024 10:49 AM [facility] CHOL/HDL RATIO 1.7 0.0 - 4.0 08/31/2024 10:49 AM ASSOCIATE PUBLISHER [facility] LDL/HDL 0.6 0.41 - 2.13 08/31/2024 10:49 AM ASSOCIATE PUBLISHER [facility] NON HDL CHOLESTEROL 61 <140 MG/DL 08/31/2024 10:49 AM ASSOCIATE PUBLISHER [facility] 08/30/2024 12:1 2 PM ASSOCIATE PUBLISHER Sima Mistry MD LABORATORY Final Re sult [facility] [address] [facility] [place] [address], [place] [phone] from Last 3 Months or Most Recently Relevant to Health Maintenance Insurance [employer] Care Teams Construction Management Assistant Relationship Specialty Start Date End Date Sima Mistry MD [address] [place] [address] PCP - General FAMILY PRACTICE 08/21/24 Isaiah Mares MD [address] [place] [address] Consulting Physician RADIATION ONCOLOGY 12/14/24
--- OUTSIDE RECORDS SUMMARY | 2025-01-30 11:05 | XMS_ITS | Encounter Summary ---
Author Organization [facility] Address [facility] [place] [address] Care Team Providers Care Operations Supervisor 2Nd Shift Name Role Phone Sima Mistry MD Primary Care Provider + Isaiah Mares MD Unavailable Reason for Visit * Reason Comments CT (SCAN) Encounter Details Date Type Department Care Team (Latest Contact Info) Description 01/21/2025 Scan HEALTH INFO SRVCS Scanned, Doc Med Group CT (SCAN) Social History Tobacco Use Types Packs/Day Years Used Date Smoking Tobacco: Former Cigarettes 0.5 15 1 960 - 1974 Passive Smoke Exposure: Never Smokeless Tobacco: Never [...] Info) Description 04/23/2025 1:30 PM CDT Appointment [facility] Radiation Oncology [address] [place] [address] [place] [address] Isaiah Mares MD [address] [place] [address] [place] [phone] documented as of this encounter Procedures Procedure Name Priority Date/Time Associated Diagnosis Comments CT GENERIC 01/21/2025 CT GENERIC 01/21/2025 documented in this encounter Results * CT GENERIC (01/21/2025) Anatomical Region Laterality Modality Other 01/21/2025 us Doc Med Group Scanned SCANNING Final Resu lt * CT GENERIC (01/21/2025) Anatomical Region Laterality Modality Other 01/21/2025 us Doc Med Group Scanned SCANNING Final Resu lt documented in this encounter Visit Diagnoses Not on filedocumented in this encounter Care Teams Operations Supervisor 2Nd Shift Relationship Specialty Start Date End Date Sima Mistry MD [address] [address] PCP - General FAMILY PRACTICE 08/21/24 Isaiah Mares MD 1 [place] [address] Consulting Physician RADIATION ONCOLOGY 12/14/24 documented as of this encounter
--- OUTSIDE RECORDS SUMMARY | 2025-01-30 11:05 | XMS_ITS | Encounter Summary ---
Author Organization [facility] Address [facility] [place] [address] Care Team Providers Care Habitat Biologist Name Role Phone Sima Mistry MD Primary Care Provider + Isaiah Mares MD Unavailable Encounter Details Date Type Department Care Team (Latest Contact Info) Description 01/25/2025 Scan HEALTH INFO SRVCS Scanned, Doc Med [...] Info) Description 04/23/2025 1:30 PM CDT Appointment [facility] Radiation Oncology [address] [place] [address] [place] [address] Isaiah Mares MD [address] [place] [address] [place] [address] documented as of this encounter Visit Diagnoses Not on filedocumented in this encounter Care Teams Habitat Biologist Relationship Specialty Start Date End Date Sima Mistry MD [address] [place] [address] PCP - General FAMILY PRACTICE 08/21/24 Isaiah Mares MD 1 [place] [address] Consulting Physician RADIATION ONCOLOGY 12/14/24 documented as of this encounter
--- OUTSIDE RECORDS SUMMARY | 2025-01-30 11:05 | XMS_ITS ---
Author Organization [facility] Address [address] [place] [address] Phone Care Team Providers Care Ceramic Tiler Name Role Phone Sima Mistry MD Primary Care Provider + Sharad Huffman MD Unavailable [phone] Active Problems Problem Noted Date Diagnosed Date [...] 01/10/2025) bortezomib (VELCADE) injectiondaratumumab-hyaluron idase-fihj (DARZALEX FASPRO) 1800-15472 MG-UT/15ML Soln bortezomib (VELCADE) 2.25 mg in Sodium Chloride (PF) 0.9 % 0.9 mL chemo injectiondaratumumab-hyaluro nidase-fihj (DARZALEX FASPRO) [id number] MG-UT/15ML injection SOLN 15 mL bortezomib (VELCADE) 2.25 mg in Sodium Chloride (PF) 0.9 % 0.9 mL chemo injectiondaratumumab-hyaluro nidase-fihj (DARZALEX FASPRO) [id number] MG-UT/15ML injection SOLN 15 mL Past Treatment and Therapy Plans No past plan information found.
--- OUTSIDE RECORDS SUMMARY | 2025-01-30 11:05 | XMS_ITS | Encounter Summary ---
Author Organization [facility] Address [facility] [place] [address] Care Team Providers Care C Software Developer Name Role Phone Sima Mistry MD Primary Care Provider + Isaiah Mares MD Unavailable Reason for Visit * Reason Onset Date Comments Appointment Request 01/29/2025 Declined AWV Encounter Details Date Type Department Care Team (Late st Contact Info) Description 01/29/2025 Telephone [facility] Medical Group Family Medicine [facility] [address] [place] [phone] Sima Mistry MD [address] [facility] [address] [place] [phone] Appointment Request (Declined AWV) Social History Tobacco Use Types Packs/Day Years [...] on file documented as of this encounter Progress Notes * Marcy Duke RN - 01/29/2025 1:49 PM CDT Telephone call placed to patient. His spouse, Sera Lofton, answered the call and stated patient was not available.Nurse introduced herself and explained her role as the Wellness Visit Nurse. Sera declined to schedule patient's Annual Wellness Visit at this time as she and her daughter are working on permanent placement for patient at a longterm. documented in this encounter Plan of Treatment Upcoming Encounters Date Type Department Care Team (Late st Contact Info) Description 04/23/2025 1:30 PM CDT Appointment [facility] Radiation Oncology [address] [place] [address] Isaiah Mares MD [address] [facility] [address] [place] [address] documented as of this encounter Visit Diagnoses Not on filedocumented in this encounter Care Teams C Software Developer Relationship Specialty Start Date End Date Sima Mistry MD [address] [place] [address] PCP - General FAMILY PRACTICE 08/21/24 Isaiah Mares MD [address] [place] [address] Consulting Physician RADIATION ONCOLOGY 12/14/24 documented as of this encounter
--- OUTSIDE RECORDS SUMMARY | 2025-01-30 11:05 | XMS_ITS ---
Author Organization [facility] Address [address] [place] [address] Care Team Providers Care Aquaculture Worker Name Role Phone Sima Mistry MD Primary Care Provider + Isaiah Mares MD Unavailable Active Problems Problem Noted Date Diagnosed Date Post herpetic neuralgia 09/27/2024 Overview (09/27/2024): Was offered gabapentin by previous primary. Acquired hypothyroidism 08/31/2024 Overview (09/11/2024): New dx, 08/2024. Assessment & Plan (09/11/2024 1:43 PM BROWN STOCK WASHER): New dx. Not controlled. Start levothyroxine 25 mcg daily. Repeat lab next visit. Essential hypertension 08/30/2024 Overview (08/30/2024): He is taking lisinopril 20 mg daily, amlodipine 10 mg daily. Assessment & Plan (09/11/2024 1:42 PM BROWN STOCK WASHER): Controlled. Cont lisinopril, amlodipine. Requested monthly record of blood pressures from assisted living. Check three times weekly. Assessment & Plan (08/30/2024 12:13 PM BROWN STOCK WASHER): Chronic and controlled. Continue amlodipine and lisinopril. CMP ordered. Gastroesophageal reflux disease without esophagi tis 08/30/2024 Overview (08/30/2024): Takes omeprazole. Assessment & Plan (08/30/2024 12:13 PM BROWN STOCK WASHER): Will evaluate records to determine how long he has been taking this and whether it is still needed. 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 Symptoms have generally been well-managed. Assessment & Plan (08/30/2024 12:12 PM BROWN STOCK WASHER): Chronic. Controlled. Continue Lexapro. Dementia 08/30/2024 Overview (08/30/2024): He is taking memantine and donepezil. Was doing independently in [place] until last month. His daughter, Marcie would come to visit and try to get him to take his medications regularly but she could not visit every day. They do not believe he was getting his medications regularly. He is now living in assisted living and they are dispensing his medications. Has a POA, but not certain if activated. It was also completed in [place]. Assessment & Plan (09/11/2024 1:42 PM BROWN STOCK WASHER): Chronic. Requested updated POA records. They will look into this. Cont donepezil and memantine. Assessment & Plan (08/30/2024 12:13 PM BROWN STOCK WASHER): Chronic. Will acquire records to see how this was diagnosed. He is alert and oriented and has decision-making ability currently. Continue donepezil and memantine and encouraged him to complete POA locally. Will check TSH and B12 as well. Multiple myeloma ([facility]) 08/30/2024 Overview (09/11/2024): Per outside records, presented February 2021 with anemia, proteinurea and worsening renal insufficiency. On watchful waiting since January 2022 with disease in [facility]. Saw Dr. Espino through [facility] last in 08/2023. Assessment & Plan (09/11/2024 12:08 PM BROWN STOCK WASHER): Patient was lost to follow up. Will reestablish heme/onc locally for ongoing management. Assessment & Plan (08/30/2024 12:12 PM BROWN STOCK WASHER): Will obtain records to evaluate chronicity and determine what needs he has Mixed hyperlipidemia 08/30/2024 Overview (08/30/2024): He is taking rosuvastatin 20 mg daily. Assessment & Plan (08/30/2024 12:12 PM BROWN STOCK WASHER): Will check CMP and lipid panel to confirm chronicity and control. Continue rosuvastatin 20 mg daily. Primary insomnia 08/30/2024 Overview (09/11/2024): Daughter was not aware that he was being prescribed Ambien, ramelteon, alprazolam. She is not certain that he was taking this regularly at his home anyway. Sleeping well despite coming off medication. Assessment & Plan (08/30/2024 12:11 PM BROWN STOCK WASHER): Given risk factors and dementia recommend against taking any sleep aids. Family is agreeable. Discontinue all of these in favor of melatonin as needed. BPH (benign prostatic hyperplasia) 08/30/2024 Overview (09/11/2024): Patient is taking finasteride and tamsulosin. Urgency. Has not been wearing depends but has them. Assessment & Plan (08/30/2024 12:11 PM BROWN STOCK WASHER): Chronic. Reasonably controlled. Continue finasteride and tamsulosin. Lymphedema 08/30/2024 Overview (08/30/2024): Has been worse recently. Daughter is uncertain when it began. Assessment & Plan (08/30/2024 12:15 PM BROWN STOCK WASHER): Uncertain chronicity. Will obtain CMP to evaluate for liver and kidney dysfunction. No known cardiac history. Recommend low-salt diet and compression stockings in the meantime. Hypertensive heart disease w ith heart failure ([facility]) 08/30/2024 Overview (09/11/2024): Last EF in 2023 was 65%. Acute stroke due to ischemia ([facility]) 0 03/16/2024 Cerebral ventriculomegaly 12/10/2023 Falls frequently 12/08/2023 Thrombocytopenia, unspecified 01/18/2022 Overview (09/11/2024): Platelets typically run 140s. Atrial fibrillation ([facility]) 07/25/2021 Type 2 diabetes mellitus wit h stage 3 chronic kidney disease, without long-term current use of insulin ([facility]) 07/25/2021 Overview (09/11/2024): A1c 6.8% in 2019. Ever since that time, has been low <6%. Not on medication for management, diet controlled. 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 Mostly recently 27. Creatinine climbing over the last couple years. Assessment & Plan (09/11/2024 12:07 PM BROWN STOCK WASHER): Referral to nephrology. Likely multifactorial CKD. Will request assistance with optimizing treatment. Osteoarthrosis 11/20/2008 Generalized anxiety disorder 04/08/2004 Current Treatment and Therapy Plans No current plan information found. Past Treatment and Therapy Plans No past plan information found. Radiation Treatments * Course C1 12/26/2024 - 01/10/2025 Treatment Period Energy Fraction Dose Fractions Total Dose Plans Planned Femur_R 12/26/2024 - 01/10/2025 5 of 5 / Iliac_R 12/26/2024 - 01/10/2025 5 of 5 / Reference Points Delivered Femur_R 12/26/2024 - 01/10/2025 20 Iliac_R 12/26/2024 - 01/10/2025 20
--- OUTSIDE RECORDS SUMMARY | 2025-01-30 11:06 | XMS_ITS | Encounter Summary ---
Author Organization [facility] Address [address] [place] [address] Phone Care Team Providers Care Yard Switch Operator Name Role Phone Sima Mistry MD Primary Care Provider + Sharad Huffman MD Unavailable Encounter Details Date Type Department Care Team (Late st Contact Info) Description 01/28/2025 Telephone [facility] [address] [place] [address] Sharad Huffman MD [address] [place] [address] [address] Social History Tobacco Use Types Packs/Day Years Used Date Smoking Tobacco: Never Smokeless Tobacco: Never Alcohol Use Standard Drinks/Week Comments Not Currently 0 (1 standard drink = 0.6 oz pur e alcohol) PHQ-2 Answer Date Recorded Total Score - Questions 1-9 16 11/17 Sex and Gender Information Value Date Recorded Sex Assigned at Not on file Legal Sex Male 2:23 PM CLINICAL EDUCATION ASSISTANT Gender Identity Not on file Sexual Orientation Not on file documented as of this encounter Miscellaneous Notes * Telephone Encounter - Sharad Huffman MD - 01/29/2025 8:03 AM CDT noted * Telephone Encounter - Sita Bello - 01/28/2025 3:40 PM CDT FYI:Spoke w/ pt daughter Marcie and she stated that she would have to call us back because the ptis in the process of being moved to a different facility. Pt's health has declined and she will cb to let us know one way or another. documented in this encounter Plan of Treatment Not on file documented as of this encounter Visit Diagnoses Not on filedocumented in this encounter Additional Health Concerns Assessment Noted Time PHQ-9 Depression Total Score: 16 025 11:54 AM CLINICAL EDUCATION ASSISTANT documented as of this encounter Care Teams Yard Switch Operator Relationship Specialty Start Date End Date Sima Mistry MD [id number] [id number] PCP - General Family Medicine 09/18/24 Sharad Huffman MD [address] [place] [phone] Consulting Physician Oncology 09/18/24 documented as of this encounter
--- OUTSIDE RECORDS SUMMARY | 2025-01-30 11:06 | XMS_ITS | Clinical Summary ---
Author Organization [facility] Address [address] [place] [address] Phone Care Team Providers Care Office Administrative Assistant Name Role Phone Sima Mistry MD Primary Care Provider + Sharad Huffman MD Unavailable [phone] Allergies No known active allergies Medications ALPRAZolam [...] 5 MG Tablet 5 Active nystatin (MYCOSTATIN) 208522 UNIT/ML Suspension Active omeprazole (PriLOSEC) 40 MG [...] Encounters Date Type Department Care Team Description 01/28/2025 Telephone [facility] [address] [address] Sharad Huffman MD 01/03/2025 8:30 AM CDT Office Visit [facility] [address] [address] Nicole Arthur, AVIAN KEEPER, TITLE LAWYER Multiple myeloma not having achieved remission (HCC) (Primary Dx) 01/03/2025 8:15 AM CDT Clinical Support [facility] [address] [address] Multiple myeloma not having achieved remission (HCC) (Primary Dx) 01/03/2025 Travel 12/27/2024 8:30 AM CDT Clinical Support [facility] [address] [address] Multiple myeloma not having achieved remission (HCC) (Primary Dx) 12/27/2024 8:15 AM CDT Office Visit [facility] [address] [address] Sharad Huffman MD Multiple myeloma not having achieved remission (HCC) (Primary Dx) 12/27/2024 Travel 12/20/2024 8:30 AM HUMAN RESOURCES TRAINEE Clinical Support [facility] [address] [address] Multiple myeloma not having achieved remission (HCC) (Primary Dx) 12/20/2024 8:15 AM HUMAN RESOURCES TRAINEE Office Visit [facility] [address] [address] Sharad Huffman MD Multiple myeloma not having achieved remission (HCC) (Primary Dx) 12/20/2024 Travel 12/13/2024 8:15 AM HUMAN RESOURCES TRAINEE Office Visit [facility] [address] [address] Sharad Huffman MD Multiple myeloma not having achieved remission (HCC) (Primary Dx) 12/13/2024 8:00 AM HUMAN RESOURCES TRAINEE Clinical Support [facility] [address] [address] Multiple myeloma not having achieved remission (HCC) (Primary Dx) 12/13/2024 Travel 12/06/2024 8:30 AM HUMAN RESOURCES TRAINEE Telemedicine [facility] [address] [address] Sharad Huffman MD Multiple myeloma not having achieved remission (HCC) (Primary Dx) 12/06/2024 Travel 12/03/2024 Refill [facility] [address] [address] Sharad Huffman MD Medication Refill 12/03/2024 Telephone [facility] [address] [address] Sharad Huffman MD 11/30/2024 8:30 AM HUMAN RESOURCES TRAINEE Care Management [facility] [address] [address] Navigator, [facility] Nurse Care Management (EDUCATION PREP) 11/26/2024 10:00 AM HUMAN RESOURCES TRAINEE Office Visit [facility] [address] [address] Sharad Huffman MD Multiple myeloma not having achieved remission (HCC) (Primary Dx) 11/26/2024 9:55 AM HUMAN RESOURCES TRAINEE Lab [facility] [address] [address] Lab, [facility] Multiple myeloma not having achieved remission (HCC) 11/26/2024 Travel 11/12/2024 10:00 AM HUMAN RESOURCES TRAINEE Office Visit [facility] [address] [address] Sharad Huffman MD Multiple myeloma not having achieved remission (HCC) (Primary Dx) 11/12/2024 8:30 AM HUMAN RESOURCES TRAINEE Ancillary Procedure [facility] [address] [address] Sharad Huffman MD Multiple myeloma not having achieved remission (HCC) 11/12/2024 Travel 11/01/2024 10:30 AM HUMAN RESOURCES TRAINEE Office Visit [facility] [address] [address] Sharad Huffman MD Multiple myeloma not having [...] on file Legal Sex Male 2:23 PM HUMAN RESOURCES TRAINEE Gender Identity Not on file Sexual Orientation [...] AUTO DIFF [place] Routine 12/20/2024 8:36 AM HUMAN RESOURCES TRAINEE Multiple myeloma not having achieved remission (HCC) CMP (COMPREHENSIVE METABOLIC PANEL) Routine 12/20/2024 8:36 AM HUMAN RESOURCES TRAINEE Multiple myeloma not having achieved remission (HCC) ABO & RH TYPING Routine 12/13/2024 8:44 AM HUMAN RESOURCES TRAINEE Multiple myeloma not having achieved remission (HCC) SERUM FREE LIGHT CHAINS, [place] Routine 11/26/2024 11:01 AM HUMAN RESOURCES TRAINEE CBC WITH AUTO DIFF [place] Routine 11/26/2024 11:01 AM HUMAN RESOURCES TRAINEE CMP (COMPREHENSIVE METABOLIC PANEL) Routine 11/26/2024 11:01 AM HUMAN RESOURCES TRAINEE Multiple myeloma not having achieved remission (HCC) ELECTROPHORESIS W/ TOTAL PROTEIN SERUM Routine 11/26/2024 11:01 AM HUMAN RESOURCES TRAINEE Multiple myeloma not having achieved remission (HCC) IMMUNOGLOBULIN IGA, IGG & IGM QUANT Routine 11/26/2024 11:01 AM HUMAN RESOURCES TRAINEE Multiple myeloma not having achieved remission (HCC) PET CT TUMOR IMAGING WHOLE BODY Routine 11/12/2024 11:10 AM HUMAN RESOURCES TRAINEE Multiple myeloma not having achieved remission (HCC) from Last 3 Months Results * (ABNORMAL) SERUM FREE LIGHT CHAINS, [place] (01/03/2025 8:34 AM CDT) Only the most recent of2 resultswithin the time period is included. FREE KAPPA LT CHAINS 737.9(H) 2.9 - 20.7 mg/L [facility] FREE LAMBDA LT CHAINS 13.7 4.2 - 27.6 mg/L [facility]STRUMENT [facility] CONTROL [facility] KAPPA/LAMBDA RATIO 53.86(H) 0.22 - 1.74 [facility] 01/03/2025 8:34 AM CDT us Sharad Huffman MD LAB SEND OUTS Final Result Performing Organization Address City/[facility] Co de Phone Number [facility] [place] [address], [place] [phone] * (ABNORMAL) MAGNESIUM (MG) (01/03/2025 8:34 AM CDT) Magnesium 1.6(L) 1.9 - 2.7 mg/dL [facility] Blood 01/03/2025 8:34 AM CDT Narrative [facility] - 01/03/2025 9:34 AM CDT Release to patient->Immediate us Sharad Huffman MD CHEMISTRY ORDERABLES Final R esult Performing Organization Address City/[facility] Co de Phone Number [facility] [place] [address], [place] [phone] * (ABNORMAL) IMMUNOGLOBULIN IGA, IGG & IGM QUANT (01/03/2025 8:34 AM CDT) Only the most recent of2 resultswithin the time period is included. IGG 448(L) 635 - 1,741 mg/dL [facility] IGA 511(H) 66 - 433 mg/dL [facility] IGM <20(L) 45 - 281 mg/dL [facility] INSTRUMENT AND CONTROL SERVICE PERSON [facility] Blood 01/03/2025 8:34 AM CDT Narrative [facility]OL SERVICE PERSON [facility] - 01/03/2025 2:37 PM CDT Release to patient->Immediate Sharad Huffman MD CHEMISTRY ORDERABLES Final R esult [facility] [employer]OL SERVICE [facility]ERSON [facility] [address] [place] [address], * (ABNORMAL) ELECTROPHORESIS W/ TOTAL PROTEIN SERUM (01/03/2025 8:34 AM CDT) Only the most recent of2 resultswithin the time period is included. PROTEIN, TOTAL, SERUM 6.4 6.0 - 8.5 G/DL [facility] IN[facility]UMENT AND CONTROL SERVICE PERSON [facility] ALBUMIN 3.6 2.9 - 4.4 G/DL [facility] MJRCR-7-TPDOPDCH 0.3 0.0 - 0.4 G/DL [facility] INSTRUMENT AND CONTROL SERVICE PERSON [facility] MSDOV-3-CMYQHPBZ 0.8 0.4 - 1.0 G/DL [facility] BETA GLOBULIN 1.3 0.7 - 1.3 G/DL [facility] GAMMA GLOBULIN 0.5 0.4 - 1.8 G/DL [facility] INSTRUMENT AND CONTROL SERVICE PERSON [facility] M-SPIKE 0.1(H) NOT OBSERVED G/DL [facility] GLOBULIN, TOTAL 2.8 2.2 - 3.9 G/DL [facility] A/G RATIO 1.3 0.7 - 1.7 [facility] PLEASE NOTE: COMMENT [facility] INSTRUMENT AND CONTROL SERVICE PERSON [facility] Comment: PROTEIN ELECTROPHORESIS SCAN WILL FOLLOW VIA COMPUTER, MAIL, OR CALCULUS TUTOR DELIVERY. PDF . [facility] Blood 01/03/2025 8:34 AM CDT Narrative [facility] INSTRUMENT AND CONTROL SERVICE PERSON [facility] - 01/04/2025 3:08 PM CDT TESTING PERFORMED AT: [CB] [facility], [address] [place] [address], [place], [address], PHONE: [phone], WEIGHING STATION OPERATOR: CAM JOHNSON, PHD Release to patient->Immediate us Sharad Huffman MD CHEMISTRY ORDERABLES Final R esult [facility] CONTROL SERVICE PERSON [facility] Special[facility] [place] [address], * (ABNORMAL) CMP (COMPREHENSIVE METABOLIC PANEL) (01/03/2025 8:34 AM CDT) Only the most recent of4 resultswithin the time period is included. Glucose 150(H) 70 - 105 mg/dL [facility] Blood Urea Nitrogen 36(H) 7 - 25 mg/dL [facility] Creatinine 2.1(H) 0.7 - 1.3 mg/dL [facility] Sodium 139 136 - 145 mEq/L [facility] Potassium 5.2(H) 3.5 - 5.1 mEq/L [facility] Chloride 106 98 - 107 mEq/L [facility] Bicarbonate 24 21 - 31 mEq/L [facility] Total Bilirubin 0.6 0.3 - 1.0 mg/dL [facility] Alk. Phosphatase 97 34 - 104 U/L [facility] Aspartate Aminotransferase 8(L) 13 - 39 U/L [facility] Alanine Aminotransferase 6(L) 7 - 52 U/L [facility] Total Protein 6.7 6.4 - 8.9 g/dL [facility] Albumin 4.1 3.5 - 5.7 g/dL [facility] Calcium 9.3 8.6 - 10.3 mg/dL [facility] Anion Gap 14.2 7.0 - 15.0 mEq/L [facility] Globulin 2.6 2.0 - 3.5 g/dL [facility] EGFR 31(L) >60 ml/min/1. 73m2 [facility] Comment: This eGFR is calculated using 2020 CKD-EPI Creatinine equation without race modifier based on the NKF-ASN task force recommendations Equation: dBRO=624*min(SCr/k,1)a*max(SCr/k,1)-1.200*0.9938Age*1.012 (if female), where SCr is serum creatinine, k is 0.7 for females and 0.9 for males, and a is -0.241 for females and -0.302 for males Blood 01/03/2025 8:34 AM CDT Narrative [facility] CONTROL SERVICE PERSON [facility] - 01/03/2025 9:34 AM CDT Release to patient->Immediate IS THE PATIENT REQUIRED TO BE FASTING FOR 8 HOURS?->No us Sharad Huffman MD CHEMISTRY ORDERABLES Final R esult [facility]UMENT [facility] CONTROL SERVICE PERSON [facility] Cancer Care Specialists [facility] [place] [address], [place] [phone] * (ABNORMAL) COMPLETE BLOOD COUNT (CBC) WITH DIFF (01/03/2025 8:34 AM CDT) Only the most recent of2 resultswithin the time period is included. WBC 3.6(L) 4.0 - 10.0 10*3/uL [facility] HGB 11.8(L) 13.7 - 17.5 g/dL [facility] HCT 36.7(L) 40.1 - 51.0 % [facility] PLT 95(L) 163 - 369 10*3/uL [facility] MPV 12.0 9.4 - 12.4 fL [facility] RBC 3.79(L) 4.63 - 6.08 10*6/uL [facility] MCV 97(H) 79 - 95 fL [facility] CONTROL SERVICE PERSON [facility] MCH 31.1 25.6 - 32.2 pg [facility] IN[facility] AND CONTROL SERVICE PERSON [facility] MCHC 32.2 32.2 - 36.5 g/dL [facility] RDW 15.0(H) 11.6 - 14.4 % [facility] Absolute Neutrophil Count 3,005 cells/uL [facility] Absolute Seg Count 3,005 1,440 - 6,600 cells/uL [facility] IN[facility] CONTROL SERVICE PERSON [facility] Absolute Lymph Count 398(L) 760 - 4,000 cells/uL [facility]UMENT AND CONTROL SERVICE PERSON [facility] Absolute [place] Count 36(L) 160 - 1,200 cells/uL [facility] INSTRUMENT AND CONTROL SERVICE PERSON [facility] Absolute Eos Count 145 0 - 300 cells/uL [facility] IN[facility]UMENT AND CONTROL SERVICE PERSON [facility] Absolute Baso Count 36 0 - 100 cells/uL [facility] CONTROL SERVICE PERSON [facility] Segmented Neutrophils 83(H) 36 - 66 % [facility] CONTROL SERVICE PERSON [facility] Lymphocytes 11(L) 19 - 40 % [facility] Monocytes 1(L) 4 - 12 % [facility] Eosinophils 4(H) 0 - 3 % [facility] Basophils 1 0 - 1 % [facility] WBC Estimate Low [facility] CONTROL SERVICE PERSON [facility] Platelet Estimate Low [facility]UMENT AND CONTROL SERVICE PERSON [facility] RBC Morphology Abnormal CANCE R INSTRUMENT AND CONTROL SERVICE PERSON [facility] Anisocytosis 1+ [facility] CONTROL SERVICE PERSON [facility] Blood 01/03/2025 8:34 AM CDT Narrative [facility] - 01/03/2025 11:45 AM CDT Release to patient->Immediate Sharad Huffman MD HEMATOLOGY ORDERABLES Final Result Performing Organization Address City/[facility] Co de Phone Number [facility] INSTRUMENT AND CONTROL SERVICE PERSON [facility] [place] [address], [place] [phone] * (ABNORMAL) BETA 2 MICROGLOBULIN (01/03/2025 8:34 AM CDT) [id number] 4.52(H) 0.97 - 1.84 mg/L [facility] CONTROL SERVICE PERSON [facility] Blood 01/03/2025 8:34 AM CDT Narrative [facility]UMENT AND CONTROL SERVICE PERSON [facility] - 01/03/2025 2:37 PM CDT Release to patient->Immediate us Sharad Huffman MD CHEMISTRY ORDERABLES Final R esult Performing Organization Address City/[facility]/ZIP Co de Phone Number [facility] INSTRUMENT AND CONTROL SERVICE PERSON [facility] [place] [address], [place] [phone] * (ABNORMAL) CBC WITH AUTO DIFF [place] (12/20/2024 8:36 AM HUMAN RESOURCES TRAINEE) Only the most recent of2 resultswithin the time period is included. WBC 4.5 4.0 - 10.0 10*3/uL [facility]UMENT AND CONTROL SERVICE PERSON [facility] HGB 11.8(L) 13.7 - 17.5 g/dL [facility] CONTROL SERVICE PERSON [facility] HCT 36.3(L) 40.1 - 51.0 % [facility] INSTRUMENT AND CONTROL SERVICE PERSON [facility] PLT 102(L) 163 - 369 10*3/uL [facility] AND CONTROL SERVICE PERSON [facility] MPV 11.6 9.4 - 12.4 fL [facility] CONTROL SERVICE PERSON [facility] RBC 3.80(L) 4.63 - 6.08 10*6/uL [facility]UMENT AND CONTROL SERVICE PERSON [facility] MCV 96(H) 79 - 95 fL [facility] CONTROL SERVICE PERSON [facility] MCH 31.1 25.6 - 32.2 pg [facility] IN[facility] AND CONTROL SERVICE PERSON [facility] MCHC 32.5 32.2 - 36.5 g/dL [facility] AND CONTROL SERVICE PERSON [facility] RDW 14.6(H) 11.6 - 14.4 % [facility] AND CONTROL SERVICE PERSON [facility] Neutrophils % 60.8 36.0 - 66.0 % [facility] IN[facility]UMENT AND CONTROL SERVICE PERSON [facility] Lymphocytes % 21.1 19.0 - 40.0 % [facility] AND CONTROL SERVICE PERSON [facility] Monocytes % 8.3 4.1 - 12.1 % [facility] SERVICE PERSON [facility] Eosinophils % 9.0(H) 0.0 - 3.5 % [facility] IN[facility]UMENT AND CONTROL SERVICE PERSON [facility] Basophils % 0.4 0.0 - 1.0 % [facility] CONTROL SERVICE PERSON [facility] Absolute Neutrophils 2.7 1.4 - 6.6 10*3/uL [facility] AND CONTROL SERVICE PERSON [facility] Absolute Lymphocytes 0.9 0.8 - 4.0 10*3/uL [facility] IN[facility] AND CONTROL SERVICE PERSON [facility] Absolute Monocytes 0.4 0.2 - 1.2 10*3/uL [facility] [employer]OL SERVICE PERSON [facility] Absolute Eosinophils 0.4 0.0 - 0.4 10*3/uL [facility] AND CONTROL SERVICE PERSON [facility] Absolute Basophils 0.0 0.0 - 0.1 10*3/uL [facility] CONTROL SERVICE PERSON [facility] 12/20/2024 8:36 AM HUMAN RESOURCES TRAINEE Sharad Huffman MD LAB SEND OUTS Final Result [facility] Cancer Care [place] [address] [place] [address], * ABO & RH TYPING (12/13/2024 8:44 AM HUMAN RESOURCES TRAINEE) ABO GROUPING O [facility] RH FACTOR NEGATIVE [facility] Comment: PLEASE NOTE: PRIOR RECORDS FOR THIS PATIENT'S ABO / RH TYPE ARE NOT AVAILABLE FOR ADDITIONAL VERIFICATION. Blood 12/13/2024 8:44 AM HUMAN RESOURCES TRAINEE Narrative [facility] - 12/14/2024 6:07 AM HUMAN RESOURCES TRAINEE TESTING PERFORMED AT: [] [facility], [address] [place] [address], [address], PHONE: [phone], WEIGHING STATION OPERATOR: CAM JOHNSON, PHD Release to patient->Immediate Sharad Huffman MD BLOOD BANK ORDERABLES Final Result [facility] Cancer [place] [address] [place] [address], * PET CT TUMOR IMAGING WHOLE BODY (11/12/2024 11:10 AM HUMAN RESOURCES TRAINEE) Anatomical Region Laterality Modality BODY N/A Computed Tomogra phy Narrative 11/12/2024 11:33 AM HUMAN RESOURCES TRAINEE EXAMINATION: PET CT TUMOR IMAGING WHOLE BODY [...] Staff Radiologist Date of Signature: 11/12/2024 11:33:52 us Sharad Huffman MD IMG PET Final Result from Last 3 Months Insurance MEDICARE C [employer] Care Teams Office Administrative Assistant Relationship Specialty Start Date End Date Sima Mistry MD [address] [place] [id number] PCP - General Family Medicine 09/18/24 Sharad Huffman MD [address] [place] [address] Consulting Physician Oncology 09/18/24
[2025-01-30] MEDS: ACETAMINOPHEN 325 MG TABLET 650 MG PO (12:06)
[2025-01-30] MEDS: LORATADINE 10 MG TABLET PO (12:06)
--- OUTSIDE RECORDS SUMMARY | 2025-01-30 13:21 | XMS_ITS ---
Author Organization [facility] Address [address] [place] [address] Phone Care Team Providers Care Logistics Operations Director Name Role Phone Sima Mistry MD Primary Care Provider + Sharad Huffman MD Unavailable [phone] Active Problems Problem Noted Date Diagnosed Date [...] 01/10/2025) bortezomib (VELCADE) injectiondaratumumab-hyaluron idase-fihj (DARZALEX FASPRO) [id number] MG-UT/15ML Soln bortezomib (VELCADE) 2.25 mg in Sodium Chloride (PF) 0.9 % 0.9 mL chemo injectiondaratumumab-hyaluro nidase-fihj (DARZALEX FASPRO) [id number] MG-UT/15ML injection SOLN 15 mL bortezomib (VELCADE) 2.25 mg in Sodium Chloride (PF) 0.9 % 0.9 mL chemo injectiondaratumumab-hyaluro nidase-fihj (DARZALEX FASPRO) [id number] MG-UT/15ML injection SOLN 15 mL Past Treatment and Therapy Plans No past plan information found.
--- OUTSIDE RECORDS SUMMARY | 2025-01-30 13:21 | XMS_ITS | Encounter Summary ---
Author Organization [facility] Address [facility] [place] [address] Care Team Providers Care Chemical Instrumentation Officer Name Role Phone Sima Mistry MD Primary [...] Info) Description 04/23/2025 1:30 PM CDT Appointment [facility] Radiation Oncology [address] [place] [address] [place] [address] Isaiah Mares MD [address] [place] [address] [place] [id number] documented as of this encounter Visit Diagnoses Not on filedocumented in this encounter Care Teams Chemical Instrumentation Officer Relationship Specialty Start Date End Date Sima Mistry MD [address] [place] [address] PCP - General FAMILY PRACTICE 08/21/24 Isaiah Mares MD [address] [place] [address] Consulting Physician RADIATION ONCOLOGY 12/14/24 documented as of this encounter
--- OUTSIDE RECORDS SUMMARY | 2025-01-30 13:21 | XMS_ITS ---
Author Organization [facility] Address [address] [place] [address] Care Team Providers Care Pharmacy Data Analyst Name Role Phone Sima Mistry MD Primary Care Provider + Isaiah Mares MD Unavailable Active Problems Problem Noted Date Diagnosed Date Post herpetic neuralgia 09/27/2024 Overview (09/27/2024): Was offered gabapentin by previous primary. Acquired hypothyroidism 08/31/2024 Overview (09/11/2024): New dx, 08/2024. Assessment & Plan (09/11/2024 1:43 PM CHEMICAL TECHNICIAN): New dx. Not controlled. Start levothyroxine 25 mcg daily. Repeat lab next visit. Essential hypertension 08/30/2024 Overview (08/30/2024): He is taking lisinopril 20 mg daily, amlodipine 10 mg daily. Assessment & Plan (09/11/2024 1:42 PM CHEMICAL TECHNICIAN): Controlled. Cont lisinopril, amlodipine. Requested monthly record of blood pressures from assisted living. Check three times weekly. Assessment & Plan (08/30/2024 12:13 PM CHEMICAL TECHNICIAN): Chronic and controlled. Continue amlodipine and lisinopril. CMP ordered. Gastroesophageal reflux disease without esophagi tis 08/30/2024 Overview (08/30/2024): Takes omeprazole. Assessment & Plan (08/30/2024 12:13 PM CHEMICAL TECHNICIAN): Will evaluate records to determine how long he has been taking this and whether it is still needed. 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 Symptoms have generally been well-managed. Assessment & Plan (08/30/2024 12:12 PM CHEMICAL TECHNICIAN): Chronic. Controlled. Continue Lexapro. Dementia 08/30/2024 Overview (08/30/2024): He is taking memantine and donepezil. Was doing independently in [place] until last month. His daughter, Marcie would come to visit and try to get him to take his medications regularly but she could not visit every day. They do not believe he was getting his medications regularly. He is now living in assisted living and they are dispensing his medications. Has a POA, but not certain if activated. It was also completed in [place]. Assessment & Plan (09/11/2024 1:42 PM CHEMICAL TECHNICIAN): Chronic. Requested updated POA records. They will look into this. Cont donepezil and memantine. Assessment & Plan (08/30/2024 12:13 PM CHEMICAL TECHNICIAN): Chronic. Will acquire records to see how this was diagnosed. He is alert and oriented and has decision-making ability currently. Continue donepezil and memantine and encouraged him to complete POA locally. Will check TSH and B12 as well. Multiple myeloma ([facility]) 08/30/2024 Overview (09/11/2024): Per outside records, presented February 2021 with anemia, proteinurea and worsening renal insufficiency. On watchful waiting since January 2022 with disease in [facility]. Saw Dr. Espino through [facility] last in 08/2023. Assessment & Plan (09/11/2024 12:08 PM CHEMICAL TECHNICIAN): Patient was lost to follow up. Will reestablish heme/onc locally for ongoing management. Assessment & Plan (08/30/2024 12:12 PM CHEMICAL TECHNICIAN): Will obtain records to evaluate chronicity and determine what needs he has Mixed hyperlipidemia 08/30/2024 Overview (08/30/2024): He is taking rosuvastatin 20 mg daily. Assessment & Plan (08/30/2024 12:12 PM CHEMICAL TECHNICIAN): Will check CMP and lipid panel to confirm chronicity and control. Continue rosuvastatin 20 mg daily. Primary insomnia 08/30/2024 Overview (09/11/2024): Daughter was not aware that he was being prescribed Ambien, ramelteon, alprazolam. She is not certain that he was taking this regularly at his home anyway. Sleeping well despite coming off medication. Assessment & Plan (08/30/2024 12:11 PM CHEMICAL TECHNICIAN): Given risk factors and dementia recommend against taking any sleep aids. Family is agreeable. Discontinue all of these in favor of melatonin as needed. BPH (benign prostatic hyperplasia) 08/30/2024 Overview (09/11/2024): Patient is taking finasteride and tamsulosin. Urgency. Has not been wearing depends but has them. Assessment & Plan (08/30/2024 12:11 PM CHEMICAL TECHNICIAN): Chronic. Reasonably controlled. Continue finasteride and tamsulosin. Lymphedema 08/30/2024 Overview (08/30/2024): Has been worse recently. Daughter is uncertain when it began. Assessment & Plan (08/30/2024 12:15 PM CHEMICAL TECHNICIAN): Uncertain chronicity. Will obtain CMP to evaluate for liver and kidney dysfunction. No known cardiac history. Recommend low-salt diet and compression stockings in the meantime. Hypertensive heart disease w ith heart failure ([facility]) 08/30/2024 Overview (09/11/2024): Last EF in 2023 was 65%. Acute stroke due to ischemia ([facility]) 0 03/16/2024 Cerebral ventriculomegaly 12/10/2023 Falls frequently 12/08/2023 Thrombocytopenia, unspecified 01/18/2022 Overview (09/11/2024): Platelets typically run 140s. Atrial fibrillation ([facility]) 07/25/2021 Type 2 diabetes mellitus wit h stage 3 chronic kidney disease, without long-term current use of insulin ([facility]) 07/25/2021 Overview (09/11/2024): A1c 6.8% in 2019. Ever since that time, has been low <6%. Not on medication for management, diet controlled. 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) 07/14/2010 Overview (09/11/2024): GFR typically 30s. Mostly recently 27. Creatinine climbing over the last couple years. Assessment & Plan (09/11/2024 12:07 PM CHEMICAL TECHNICIAN): Referral to nephrology. Likely multifactorial CKD. Will [...]
--- OUTSIDE RECORDS SUMMARY | 2025-01-30 13:21 | XMS_ITS | Encounter Summary ---
Author Organization [facility] Address Formerly [facility], [id number] [place] [address] Care Team Providers Care Implant Coordinator Name Role Phone Sima Mistry MD Primary [...] Info) Description 04/23/2025 1:30 PM CDT Appointment [facility] Radiation Oncology [address] [place] [address] [place] [address] Isaiah Mares MD [address] [place] [address] [place] [address] documented as of this encounter Procedures [...] on filedocumented in this encounter Care Teams Implant Coordinator Relationship Specialty Start Date End Date Sima Mistry MD [address] [address] PCP - General FAMILY PRACTICE 08/21/24 Isaiah Mares MD [address] [place] [address] Consulting Physician RADIATION ONCOLOGY 12/14/24 documented as of this encounter
--- OUTSIDE RECORDS SUMMARY | 2025-01-30 13:21 | XMS_ITS | Encounter Summary ---
Author Organization [facility] Address [facility] [place] [address] Care Team Providers Care Electric Shipyard Operator Name Role Phone Sima Mistry MD [...] Info) Description 04/23/2025 1:30 PM CDT Appointment [facility] Radiation Oncology [address] [place] [address] [place] [address] Isaiah Mares MD [address] [place] [address] [place] [address] documented as of this encounter Visit Diagnoses Not on filedocumented in this encounter Care Teams Electric Shipyard Operator Relationship Specialty Start Date End Date Sima Mistry MD [address] [place] [address] PCP - General FAMILY PRACTICE 08/21/24 Isaiah Mares MD [address] [place] [address] Consulting Physician RADIATION ONCOLOGY 12/14/24 documented as of this encounter
--- OUTSIDE RECORDS SUMMARY | 2025-01-30 13:21 | XMS_ITS | Encounter Summary ---
Author Organization [facility] Address [facility] hospital[address] [place] [address] Care Team Providers Care Senior Technical Manager Name Role Phone Sima Mistry MD Primary Care Provider + Isaiah Mares MD Unavailable Reason for Visit * Reason Onset Date Comments Appointment Request 01/29/2025 Declined AWV Encounter Details Date Type Department Care Team (Late st Contact Info) Description 01/29/2025 Telephone [facility] Medical Group Family Medicine [facility] [address] [place] [phone] Sima Mistry MD [address] [facility] [address] [place] [phone] Appointment Request (Declined AWV) Social History [...] on permanent placement for patient at a senior living. documented in this encounter Plan of Treatment Upcoming Encounters Date Type Department Care Team (Late st Contact Info) Description 04/23/2025 1:30 PM CDT Appointment [facility] Radiation Oncology [address] [place] [address] Isaiah Mares MD [address] [facility] [address] [place] [address] documented as of this encounter Visit Diagnoses Not on filedocumented in this encounter Care Teams Senior Technical Manager Relationship Specialty Start Date End Date Sima Mistry MD [address] [place] [address] PCP - General FAMILY PRACTICE 08/21/24 Isaiah Mares MD [address] [place] [address] Consulting Physician RADIATION ONCOLOGY 12/14/24 documented as of this encounter
--- OUTSIDE RECORDS SUMMARY | 2025-01-30 13:21 | XMS_ITS | Clinical Summary ---
Author Organization [facility] Address [facility] [place] [address] Care Team Providers Care Publication Specialist Name Role Phone Sima Mistry MD Primary [...] 08/2024. Assessment & Plan (09/11/2024 1:43 PM MANAGER GENERAL): New dx. Not controlled. Start levothyroxine 25 mcg daily. Repeat lab next visit. Essential hypertension 08/30/2024 Overview (08/30/2024): He is taking lisinopril 20 mg daily, amlodipine 10 mg daily. Assessment & Plan (09/11/2024 1:42 PM MANAGER GENERAL): Controlled. Cont lisinopril, amlodipine. Requested monthly record of blood pressures from assisted living. Check three times weekly. Assessment & Plan (08/30/2024 12:13 PM MANAGER GENERAL): Chronic and controlled. Continue amlodipine and lisinopril. CMP ordered. Gastroesophageal reflux disease without esophagi tis 08/30/2024 Overview (08/30/2024): Takes omeprazole. Assessment & Plan (08/30/2024 12:13 PM MANAGER GENERAL): Will evaluate records to determine how long he has been taking this and whether it is still needed. 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 Symptoms have generally been well-managed. Assessment & Plan (08/30/2024 12:12 PM MANAGER GENERAL): Chronic. Controlled. Continue Lexapro. Dementia 08/30/2024 Overview (08/30/2024): He is taking memantine and donepezil. Was doing independently in [place] until last month. His daughter, Marcie would come to visit and try to get him to take his medications regularly but she could not visit every day. They do not believe he was getting his medications regularly. He is now living in assisted living and they are dispensing his medications. Has a POA, but not certain if activated. It was also completed in [place]. Assessment & Plan (09/11/2024 1:42 PM MANAGER GENERAL): Chronic. Requested updated POA records. They will look into this. Cont donepezil and memantine. Assessment & Plan (08/30/2024 12:13 PM MANAGER GENERAL): Chronic. Will acquire records to see how this was diagnosed. He is alert and oriented and has decision-making ability currently. Continue donepezil and memantine and encouraged him to complete POA locally. Will check TSH and B12 as well. Multiple myeloma ([facility]) 08/30/2024 Overview (09/11/2024): Per outside records, presented February 2021 with anemia, proteinurea and worsening renal insufficiency. On watchful waiting since January 2022 with disease in [facility]. Saw Dr. Espino through [facility] last in 08/2023. Assessment & Plan (09/11/2024 12:08 PM MANAGER GENERAL): Patient was lost to follow up. Will reestablish heme/onc locally for ongoing management. Assessment & Plan (08/30/2024 12:12 PM MANAGER GENERAL): Will obtain records to evaluate chronicity and determine what needs he has Mixed hyperlipidemia 08/30/2024 Overview (08/30/2024): He is taking rosuvastatin 20 mg daily. Assessment & Plan (08/30/2024 12:12 PM MANAGER GENERAL): Will check CMP and lipid panel to confirm chronicity and control. Continue rosuvastatin 20 mg daily. Primary insomnia 08/30/2024 Overview (09/11/2024): Daughter was not aware that he was being prescribed Ambien, ramelteon, alprazolam. She is not certain that he was taking this regularly at his home anyway. Sleeping well despite coming off medication. Assessment & Plan (08/30/2024 12:11 PM MANAGER GENERAL): Given risk factors and dementia recommend against taking any sleep aids. Family is agreeable. Discontinue all of these in favor of melatonin as needed. BPH (benign prostatic hyperplasia) 08/30/2024 Overview (09/11/2024): Patient is taking finasteride and tamsulosin. Urgency. Has not been wearing depends but has them. Assessment & Plan (08/30/2024 12:11 PM MANAGER GENERAL): Chronic. Reasonably controlled. Continue finasteride and tamsulosin. Lymphedema 08/30/2024 Overview (08/30/2024): Has been worse recently. Daughter is uncertain when it began. Assessment & Plan (08/30/2024 12:15 PM MANAGER GENERAL): Uncertain chronicity. Will obtain CMP to evaluate for liver and kidney dysfunction. No known cardiac history. Recommend low-salt diet and compression stockings in the meantime. Hypertensive heart disease w ith heart failure ([facility]) 08/30/2024 Overview (09/11/2024): Last EF in 2023 was 65%. Acute stroke due to ischemia ([facility]) 0 03/16/2024 Cerebral ventriculomegaly 12/10/2023 Falls frequently 12/08/2023 Thrombocytopenia, unspecified 01/18/2022 Overview (09/11/2024): Platelets typically run 140s. Atrial fibrillation ([facility]) 07/25/2021 Type 2 diabetes mellitus wit h stage 3 chronic kidney disease, without long-term current use of insulin ([facility]) 07/25/2021 Overview (09/11/2024): A1c 6.8% in 2019. Ever since that time, has been low <6%. Not on medication for management, diet controlled. 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 Mostly recently 27. Creatinine climbing over the last couple years. Assessment & Plan (09/11/2024 12:07 PM MANAGER GENERAL): Referral to nephrology. Likely multifactorial CKD. Will request assistance with optimizing treatment. Osteoarthrosis 11/20/2008 Generalized anxiety disorder 04/08/2004 Encounters Date Type Department Care Team Description 01/29/2025 Scan [facility] Scanned, Doc Med Group 01/29/2025 Telephone [facility] Medical Group Family [facility] [address] [place] [address] Sima Mistry MD Appointment Request (Declined AWV) 01/25/2025 Scan [facility] Scanned, Doc Med Group 01/21/2025 Scan [facility] Scanned, Doc Med Group CT (SCAN) 01/07/2025 7:30 AM CDT - 01/07/2025 11:59 PM CDT Hospital Encounter [facility] Radiation Oncology [address] [place] [address] [place] [address] Isaiah Mares MD Discharge Disposition: Home or Self Care (Routine Discharge) 01/04/2025 7:27 AM CDT - 01/04/2025 11:59 PM CDT Hospital Encounter [facility] Radiation Oncology [address] [place] [address] [place] [address] Isaiah Mares MD On Tx Discharge Disposition: Home or Self Care (Routine Discharge) 01/03/2025 10:40 AM CDT - 01/03/2025 11:59 PM CDT Hospital Encounter [facility] Radiation Oncology [address] [place] [address] [place] [address] Isaiah Mares MD Discharge Disposition: Home or Self Care (Routine Discharge) 01/03/2025 Scan [facility] Scanned, Doc Med Group 01/01/2025 Telephone [facility] Radiation Oncology [address] [place] [address] [place] [address] Isaiah Mares MD Cancer 12/27/2024 10:38 AM CDT - 12/27/2024 11:59 PM CDT Hospital Encounter [facility] Oncology [address] [place] [address] [place] [address] Isaiah Mares MD Discharge Disposition: Home or Self Care (Routine Discharge) 12/27/2024 Scan [facility] Scanned, Doc Med Group 12/26/2024 4:00 PM CDT - 12/26/2024 11:59 PM CDT Hospital Encounter [facility] Radiation Oncology [address] [place] [address] [place] [address] Isaiah Mares MD Discharge Disposition: Home or Self Care (Routine Discharge) 12/20/2024 Scan [facility] Scanned, Doc Med Group 12/18/2024 1:27 PM MANAGER GENERAL - 12/18/2024 11:59 PM MANAGER GENERAL Hospital Encounter [facility] Radiation Oncology [address] [place] [address] [place] [address] Isaiah Mares MD Discharge Disposition: Home or Self Care (Routine Discharge) 12/18/2024 Travel 12/14/2024 8:00 AM MANAGER GENERAL - 12/14/2024 11:59 PM MANAGER GENERAL Hospital Encounter [facility] Radiation Oncology [address] [place] [address] [place] [address] Isaiah Mares MD Consult Discharge Disposition: Home or Self Care (Routine Discharge) 12/14/2024 Telephone [facility] Radiation Oncology [address] [place] [address] [place] [address] Isaiah Mares MD Question 12/14/2024 Travel 12/13/2024 Scan [facility] Scanned, Doc Med Group 12/06/2024 Telephone [facility] Radiation Oncology [address] [facility] [address] [place] [address] Isaiah Mares MD Appointment Request 12/06/2024 Orders Only [facility] Central Scheduling [address] [place] [address] Sharad Huffman MD 11/26/2024 Scan [facility] Scanned, Doc Med Group 11/13/2024 Scan [facility] Scanned, Doc Med Group 11/12/2024 Scan [facility] Scanned, Doc Med Group 11/01/2024 Scan [facility] Scanned, Doc Med Group 11/01/2024 Telephone [facility] Medical Group Family Medicine [facility] [address] [address] Sima Mistry MD Medication from Last 3 [...] 36.6 C (97.9 F) 09/11/2024 1:12 PM MANAGER GENERAL Respiratory Rate 20 09/11/2024 1:12 PM MANAGER GENERAL Oxygen Saturation 97% 01/04/2025 8:05 AM CDT Inhaled Oxygen Concentration - - Weight 91.3 kg (201 lb 3.2 oz) 12/14/2024 8:40 A M MANAGER GENERAL Height 175.3 cm (5' 9 ) 01/04/2025 8:05 AM CDT Body Mass Index 29.71 12/14/2024 8:40 AM MANAGER GENERAL Plan of Treatment Upcoming Encounters Date Type Department Care Team (Late st Contact Info) Description 04/23/2025 1:30 PM CDT Appointment [facility] Radiation Oncology [address] [place] [address] [place] [address] Isaiah Mares MD [address] [place] [address] Health Maintenance Due Date Last Done Comments COVID-19 Vaccine (#1) 1950 Diabetes: Retinopathy Eye Exam 1962 RSV Immunization or 60+ Years (1 - 1-dose 75+ series) 2019 Zoster Vaccines (2 of 2) 07/10/2021 05/15/2021 DTaP, Tdap and Td Vaccines (2 - Td or Tdap) 02/12/2024 02/11/2014 PHQ-2 (Physician Nelson) 10/17/2024 08/30/2024 Hemoglobin A1C 02/27/2025 08/30/2024, 05/3 [...] CDT LIPID PANEL Routine 08/30/2024 12:12 PM MANAGER GENERAL Mixed hyperlipidemia HEMOGLOBIN, GLYCOSYLATED Routine 08/30/2024 12:12 PM MANAGER GENERAL Diabetes mellitus screening from Last 3 Months [...] * (ABNORMAL) HEMOGLOBIN, GLYCOSYLATED (08/30/2024 12:12 PM MANAGER GENERAL) HGB A1C 5.6 4.5 - 6.2 % 08/30/2024 7:53 PM MANAGER GENERAL [facility] ESTIMATED AVG GLUCOSE 114(H) 74 - 106 MG/DL 08/30/2024 7:53 PM MANAGER GENERAL [facility] 08/30/2024 12:1 2 PM MANAGER GENERAL Sima Mistry MD LABORATORY Final Re sult [facility] [address] [place] [address], * LIPID PANEL (08/30/2024 12:12 PM MANAGER GENERAL) CHOLESTEROL 154 <200 MG/DL 08/31/2024 10:49 AM MANAGER GENERAL [facility] TRIGLYCERIDES 40 <150 MG/DL 08/31/2024 10:49 AM [facility] HDL 93 >40 MG/DL 08/31/2024 10:49 AM MANAGER GENERAL [facility] LDL-C 53 <100 MG/DL 08/31/2024 10:49 AM MANAGER GENERAL [facility] VLDL CALCULATION 8 5 - 28 MG/DL 08/31/2024 10:49 AM [facility] CHOL/HDL RATIO 1.7 0.0 - 4.0 08/31/2024 10:49 AM MANAGER GENERAL [facility] LDL/HDL 0.6 0.41 - 2.13 08/31/2024 10:49 AM MANAGER GENERAL [facility] NON HDL CHOLESTEROL 61 <140 MG/DL 08/31/2024 10:49 AM [facility] 08/30/2024 12:1 2 PM MANAGER GENERAL Sima Mistry MD LABORATORY Final Re sult [facility] [address] [place] [address], [place] [phone] from Last 3 Months or Most Recently Relevant to Health Maintenance Insurance [employer] Care Teams Publication Specialist Relationship Specialty Start Date End Date Sima Mistry MD [address] [place] [address] PCP - General FAMILY PRACTICE 08/21/24 Isaiah Mares MD [address] [place] [address] Consulting Physician RADIATION ONCOLOGY 12/14/24
--- OUTSIDE RECORDS SUMMARY | 2025-01-30 13:21 | XMS_ITS | Encounter Summary ---
Author Organization [facility] Address [address] [place] [address] Phone Care Team Providers Care Blocking Machine Operator Second Name Role Phone Sima Mistry MD Primary Care Provider + Sharad Huffman MD Unavailable [phone] Encounter Details Date Type Department Care Team (Late st Contact Info) Description 01/28/2025 Telephone [facility] [address] [place] [address] Sharad Huffman MD [address] [place] [address] [address] Social History Tobacco Use Types Packs/Day Years Used Date Smoking Tobacco: Never Smokeless Tobacco: Never Alcohol Use Standard Drinks/Week Comments Not Currently 0 (1 standard drink = 0.6 oz pur e alcohol) PHQ-2 Answer Date Recorded Total Score - Questions 1-9 16 11/17 Sex and Gender Information Value Date Recorded Sex Assigned at Not on file Legal Sex Male 2:23 PM PREVOCATIONAL/REHABILITATION COUNSELOR Gender Identity Not on file Sexual Orientation [...] Depression Total Score: 16 025 11:54 AM PREVOCATIONAL/REHABILITATION COUNSELOR documented as of this encounter Care Teams Blocking Machine Operator Second Relationship Specialty Start Date End Date Sima Mistry MD [address] [address] PCP - General Family Medicine 09/18/24 Sharad Huffman MD [address] [place] [phone] Consulting Physician Oncology 09/18/24 documented as of this encounter
--- OUTSIDE RECORDS SUMMARY | 2025-01-30 13:21 | XMS_ITS | Clinical Summary ---
Author Organization [facility] Address [address] [place] [address] Phone Care Team Providers Care Bench Worker Name Role Phone Sima Mistry MD Primary Care Provider + Sharad Huffman MD Unavailable [phone] Allergies No known active allergies Medications ALPRAZolam [...] 5 MG Tablet 5 Active nystatin (MYCOSTATIN) [id number] UNIT/ML Suspension Active omeprazole (PriLOSEC) 40 MG [...] Description 01/28/2025 Telephone [facility] [address] [address] Sharad Huffman MD 01/03/2025 8:30 AM CDT Office Visit [facility] [address] [address] Nicole Arthur, MATERIALS CLERK, RADIOLOGY DIRECTOR Multiple myeloma not having achieved remission (HCC) (Primary Dx) 01/03/2025 8:15 AM CDT Clinical Support [facility] [address] [address] Multiple myeloma not having achieved remission (HCC) (Primary Dx) 01/03/2025 Travel 12/27/2024 8:30 AM CDT Clinical Support [facility] [address] [address] Multiple myeloma not having achieved remission (HCC) (Primary Dx) 12/27/2024 8:15 AM CDT Office Visit [facility] [address] [address] Sharad Huffman MD Multiple myeloma not having achieved remission (HCC) (Primary Dx) 12/27/2024 Travel 12/20/2024 8:30 AM ACCOUNTS RECEIVABLE PROCESSOR Clinical Support [facility] [address] [address] Multiple myeloma not having achieved remission (HCC) (Primary Dx) 12/20/2024 8:15 AM ACCOUNTS RECEIVABLE PROCESSOR Office Visit [facility] [address] [address] Sharad Huffman MD Multiple myeloma not having achieved remission (HCC) (Primary Dx) 12/20/2024 Travel 12/13/2024 8:15 AM ACCOUNTS RECEIVABLE PROCESSOR Office Visit [facility] [address] [address] Sharad Huffman MD Multiple myeloma not having achieved remission (HCC) (Primary Dx) 12/13/2024 8:00 AM ACCOUNTS RECEIVABLE PROCESSOR Clinical Support [facility] [address] [address] Multiple myeloma not having achieved remission (HCC) (Primary Dx) 12/13/2024 Travel 12/06/2024 8:30 AM ACCOUNTS RECEIVABLE PROCESSOR Telemedicine [facility] [address] [address] Sharad Huffman MD Multiple myeloma not having achieved remission (HCC) (Primary Dx) 12/06/2024 Travel 12/03/2024 Refill [facility] [address] [address] Sharad Huffman MD Medication Refill 12/03/2024 Telephone [facility] [address] [address] Sharad Huffman MD 11/30/2024 8:30 AM ACCOUNTS RECEIVABLE PROCESSOR Care Management [facility] [address] [address] Navigator, [facility] Nurse Care Management (EDUCATION PREP) 11/26/2024 10:00 AM ACCOUNTS RECEIVABLE PROCESSOR Office Visit [facility] [address] [address] Sharad Huffman MD Multiple myeloma not having achieved remission (HCC) (Primary Dx) 11/26/2024 9:55 AM ACCOUNTS RECEIVABLE PROCESSOR Lab [facility] [address] [address] Lab, [facility] Multiple myeloma not having achieved remission (HCC) 11/26/2024 Travel 11/12/2024 10:00 AM ACCOUNTS RECEIVABLE PROCESSOR Office Visit [facility] [address] [address] Sharad Huffman MD Multiple myeloma not having achieved remission (HCC) (Primary Dx) 11/12/2024 8:30 AM ACCOUNTS RECEIVABLE PROCESSOR Ancillary Procedure [facility] [address] [address] Sharad Huffman MD Multiple myeloma not having achieved remission (HCC) 11/12/2024 Travel 11/01/2024 10:30 AM ACCOUNTS RECEIVABLE PROCESSOR Office Visit [facility] [address] [address] Sharad Huffman MD Multiple myeloma not having [...] on file Legal Sex Male 2:23 PM ACCOUNTS RECEIVABLE PROCESSOR Gender Identity Not on file Sexual Orientation [...] AUTO DIFF [place] Routine 12/20/2024 8:36 AM ACCOUNTS RECEIVABLE PROCESSOR Multiple myeloma not having achieved remission (HCC) CMP (COMPREHENSIVE METABOLIC PANEL) Routine 12/20/2024 8:36 AM ACCOUNTS RECEIVABLE PROCESSOR Multiple myeloma not having achieved remission (HCC) ABO & RH TYPING Routine 12/13/2024 8:44 AM ACCOUNTS RECEIVABLE PROCESSOR Multiple myeloma not having achieved remission (HCC) SERUM FREE LIGHT CHAINS, [place] Routine 11/26/2024 11:01 AM ACCOUNTS RECEIVABLE PROCESSOR CBC WITH AUTO DIFF [place] Routine 11/26/2024 11:01 AM ACCOUNTS RECEIVABLE PROCESSOR CMP (COMPREHENSIVE METABOLIC PANEL) Routine 11/26/2024 11:01 AM ACCOUNTS RECEIVABLE PROCESSOR Multiple myeloma not having achieved remission (HCC) ELECTROPHORESIS W/ TOTAL PROTEIN SERUM Routine 11/26/2024 11:01 AM ACCOUNTS RECEIVABLE PROCESSOR Multiple myeloma not having achieved remission (HCC) IMMUNOGLOBULIN IGA, IGG & IGM QUANT Routine 11/26/2024 11:01 AM ACCOUNTS RECEIVABLE PROCESSOR Multiple myeloma not having achieved remission (HCC) PET CT TUMOR IMAGING WHOLE BODY Routine 11/12/2024 11:10 AM ACCOUNTS RECEIVABLE PROCESSOR Multiple myeloma not having achieved remission (HCC) from Last 3 Months Results * (ABNORMAL) SERUM FREE LIGHT CHAINS, [place] (01/03/2025 8:34 AM CDT) Only the most recent of2 resultswithin the time period is included. FREE KAPPA LT CHAINS 737.9(H) 2.9 - 20.7 mg/L [facility] FREE LAMBDA LT CHAINS 13.7 4.2 - 27.6 mg/L [facility] KAPPA/LAMBDA RATIO 53.86(H) 0.22 - 1.74 [facility] 01/03/2025 8:34 AM CDT us Sharad Huffman MD LAB SEND OUTS Final Result Performing Organization Address City/[facility] Co de Phone Number [facility] [place] [address], [place] [phone] * (ABNORMAL) MAGNESIUM (MG) (01/03/2025 8:34 AM CDT) Magnesium 1.6(L) 1.9 - 2.7 mg/dL [facility] Blood 01/03/2025 8:34 AM CDT Narrative [facility] - 01/03/2025 9:34 AM CDT Release to patient->Immediate us Sharad Huffman MD CHEMISTRY ORDERABLES Final R esult Performing Organization Address City/[facility] Co de Phone Number [facility] [place] [place] [address], [place] [phone] * (ABNORMAL) IMMUNOGLOBULIN IGA, IGG & IGM QUANT (01/03/2025 8:34 AM CDT) Only the most recent of2 resultswithin the time period is included. IGG 448(L) 635 - 1,741 mg/dL [facility] IGA 511(H) 66 - 433 mg/dL [facility] IGM <20(L) 45 - 281 mg/dL [facility] CHIEF PROCUREMENT OFFICER [facility] Blood 01/03/2025 8:34 AM CDT Narrative CANCER CHIEF PROCUREMENT OFFICER [facility] - 01/03/2025 2:37 PM CDT Release to patient->Immediate Sharad Huffman MD CHEMISTRY ORDERABLES Final R esult [facility] CHIEF PROCUREMENT OFFICER [facility] [address] [place] [address], * (ABNORMAL) ELECTROPHORESIS W/ TOTAL PROTEIN SERUM (01/03/2025 8:34 AM CDT) Only the most recent of2 resultswithin the time period is included. PROTEIN, TOTAL, SERUM 6.4 6.0 - 8.5 G/DL [facility] CHIEF PROCUREMENT OFFICER [facility] ALBUMIN 3.6 2.9 - 4.4 G/DL [facility] ATRNH-6-[id number] 0.3 0.0 - 0.4 G/DL [facility] CHIEF PROCUREMENT OFFICER [facility] [id number]-[id number] 0.8 0.4 - 1.0 G/DL [facility] BETA GLOBULIN 1.3 0.7 - 1.3 G/DL [facility] GAMMA GLOBULIN 0.5 0.4 - 1.8 G/DL CANCER CHIEF PROCUREMENT OFFICER [facility] M-SPIKE 0.1(H) NOT OBSERVED G/DL [facility] GLOBULIN, TOTAL 2.8 2.2 - 3.9 G/DL [facility] A/G RATIO 1.3 0.7 - 1.7 [facility] PLEASE NOTE: COMMENT [facility] CHIEF PROCUREMENT OFFICER [facility] Comment: PROTEIN ELECTROPHORESIS SCAN WILL FOLLOW VIA COMPUTER, MAIL, OR FIELD HEALTH OFFICER DELIVERY. PDF . [facility] Blood 01/03/2025 8:34 AM CDT Narrative CANCER CHIEF PROCUREMENT OFFICER [facility] - 01/04/2025 3:08 PM CDT TESTING PERFORMED AT: [CB[facility], [address] [place] [address], [place], [address], PHONE: [phone], TEXTURING MACHINE FIXER: CAM JOHNSON, PHD Release to patient->Immediate us Sharad Huffman MD CHEMISTRY ORDERABLES Final R esult [facility]CER CHIEF PROCUREMENT OFFICER [facility] [place] [address], * (ABNORMAL) CMP (COMPREHENSIVE METABOLIC PANEL) (01/03/2025 8:34 AM CDT) Only the most recent of4 resultswithin the time period is included. Glucose 150(H) 70 - 105 mg/dL [facility] Blood Urea Nitrogen 36(H) 7 - 25 mg/dL [facility] Creatinine 2.1(H) 0.7 - 1.3 mg/dL [facility] Sodium 139 136 - 145 mEq/L [facility] Potassium 5.2(H) 3.5 - 5.1 mEq/L [facility] Chloride 106 98 - 107 mEq/L [facility] Bicarbonate 24 21 - 31 mEq/L [facility] Total Bilirubin 0.6 0.3 - 1.0 mg/dL [facility] Alk. Phosphatase 97 34 - 104 U/L [facility] Aspartate Aminotransferase 8(L) 13 - 39 U/L [facility] Alanine Aminotransferase 6(L) 7 - 52 U/L [facility] Total Protein 6.7 6.4 - 8.9 g/dL [facility] Albumin 4.1 3.5 - 5.7 g/dL [facility] Calcium 9.3 8.6 - 10.3 mg/dL [facility] Anion Gap 14.2 7.0 - 15.0 mEq/L [facility] Globulin 2.6 2.0 - 3.5 g/dL [facility] EGFR 31(L) >60 ml/min/1. 73m2 [facility] Comment: This eGFR is calculated using 2020 CKD-EPI Creatinine equation without race modifier based on the NKF-ASN task force recommendations Equation: sZLA=387*min(SCr/k,1)a*max(SCr/k,1)-1.200*0.9938Age*1.012 (if female), where SCr is serum creatinine, k is 0.7 for females and 0.9 for males, and a is -0.241 for females and -0.302 for males Blood 01/03/2025 8:34 AM CDT Narrative [facility] CHIEF PROCUREMENT OFFICER [facility] - 01/03/2025 9:34 AM CDT Release to patient->Immediate IS THE PATIENT REQUIRED TO BE FASTING FOR 8 HOURS?->No us Sharad Huffman MD CHEMISTRY ORDERABLES Final R esult CANCER CHIEF PROCUREMENT OFFICER [facility] [place] [address], [place] [phone] * (ABNORMAL) COMPLETE BLOOD COUNT (CBC) WITH DIFF (01/03/2025 8:34 AM CDT) Only the most recent of2 resultswithin the time period is included. WBC 3.6(L) 4.0 - 10.0 10*3/uL [facility] HGB 11.8(L) 13.7 - 17.5 g/dL [facility] HCT 36.7(L) 40.1 - 51.0 % [facility] PLT 95(L) 163 - 369 10*3/uL [facility] MPV 12.0 9.4 - 12.4 fL [facility] RBC 3.79(L) 4.63 - 6.08 10*6/uL [facility] MCV 97(H) 79 - 95 fL CAN[facility]ER CHIEF PROCUREMENT OFFICER [facility] MCH 31.1 25.6 - 32.2 pg [facility]ER CHIEF PROCUREMENT OFFICER [facility] MCHC 32.2 32.2 - 36.5 g/dL [facility] RDW 15.0(H) 11.6 - 14.4 % [facility] Absolute Neutrophil Count 3,005 cells/uL [facility] Absolute Seg Count 3,005 1,440 - 6,600 cells/uL CANCER CHIEF PROCUREMENT OFFICER [facility] Absolute Lymph Count 398(L) 760 - 4,000 cells/uL [facility]ER CHIEF PROCUREMENT OFFICER [facility] Absolute Toombs Count 36(L) 160 - 1,200 cells/uL [facility]ER CHIEF PROCUREMENT OFFICER [facility] Absolute Eos Count 145 0 - 300 cells/uL [facility]ER CHIEF PROCUREMENT OFFICER [facility] Absolute Baso Count 36 0 - 100 cells/uL [facility] CHIEF PROCUREMENT OFFICER [facility] Segmented Neutrophils 83(H) 36 - 66 % CANCER CHIEF PROCUREMENT OFFICER [facility] Lymphocytes 11(L) 19 - 40 % [facility] Monocytes 1(L) 4 - 12 % [facility] Eosinophils 4(H) 0 - 3 % [facility] Basophils 1 0 - 1 % [facility] WBC Estimate Low CAN[facility]ER CHIEF PROCUREMENT OFFICER [facility] Platelet Estimate Low CANCER CHIEF PROCUREMENT OFFICER [facility] RBC Morphology Abnormal CANCE R CHIEF PROCUREMENT OFFICER [facility] Anisocytosis 1+ [facility]ER CHIEF PROCUREMENT OFFICER [facility] Blood 01/03/2025 8:34 AM CDT Narrative [facility] - 01/03/2025 11:45 AM CDT Release to patient->Immediate Sharad Huffman MD HEMATOLOGY ORDERABLES Final Result Performing Organization Address City/[facility] Co de Phone Number CANCER CHIEF PROCUREMENT OFFICER [facility] [place] [address], [place] [phone] * (ABNORMAL) BETA 2 MICROGLOBULIN (01/03/2025 8:34 AM CDT) [id number] 4.52(H) 0.97 - 1.84 mg/L CANCER CHIEF PROCUREMENT OFFICER [facility] Blood 01/03/2025 8:34 AM CDT Narrative CANCER CHIEF PROCUREMENT OFFICER [facility] - 01/03/2025 2:37 PM CDT Release to patient->Immediate us Sharad Huffman MD CHEMISTRY ORDERABLES Final R esult Performing Organization Address City/[facility]/ZIP Co de Phone Number CANCER CHIEF PROCUREMENT OFFICER [facility] [place] [address], [place] [phone] * (ABNORMAL) CBC WITH AUTO DIFF [place] (12/20/2024 8:36 AM ACCOUNTS RECEIVABLE PROCESSOR) Only the most recent of2 resultswithin the time period is included. WBC 4.5 4.0 - 10.0 10*3/uL CANCER CHIEF PROCUREMENT OFFICER [facility] HGB 11.8(L) 13.7 - 17.5 g/dL CANCER CHIEF PROCUREMENT OFFICER [facility] HCT 36.3(L) 40.1 - 51.0 % CANCER CHIEF PROCUREMENT OFFICER [facility] PLT 102(L) 163 - 369 10*3/uL CANCER CHIEF PROCUREMENT OFFICER [facility] MPV 11.6 9.4 - 12.4 fL CAN[facility]ER CHIEF PROCUREMENT OFFICER [facility] RBC 3.80(L) 4.63 - 6.08 10*6/uL CANCER CHIEF PROCUREMENT OFFICER [facility] MCV 96(H) 79 - 95 fL [facility]ER CHIEF PROCUREMENT OFFICER [facility] MCH 31.1 25.6 - 32.2 pg CANCER CHIEF PROCUREMENT OFFICER [facility] MCHC 32.5 32.2 - 36.5 g/dL CAN[facility]ER CHIEF PROCUREMENT OFFICER [facility] RDW 14.6(H) 11.6 - 14.4 % CAN[facility]ER CHIEF PROCUREMENT OFFICER [facility] Neutrophils % 60.8 36.0 - 66.0 % CANCER CHIEF PROCUREMENT OFFICER [facility] Lymphocytes % 21.1 19.0 - 40.0 % CANCER CHIEF PROCUREMENT OFFICER [facility] Monocytes % 8.3 4.1 - 12.1 % CAN[facility]ER CHIEF PROCUREMENT OFFICER [facility] Eosinophils % 9.0(H) 0.0 - 3.5 % CANCER CHIEF PROCUREMENT OFFICER [facility] Basophils % 0.4 0.0 - 1.0 % CANCER CHIEF PROCUREMENT OFFICER [facility] Absolute Neutrophils 2.7 1.4 - 6.6 10*3/uL CAN[facility]ER CHIEF PROCUREMENT OFFICER [facility] Absolute Lymphocytes 0.9 0.8 - 4.0 10*3/uL CANCER CHIEF PROCUREMENT OFFICER [facility] Absolute Monocytes 0.4 0.2 - 1.2 10*3/uL CANCER CHIEF PROCUREMENT OFFICER [facility] Absolute Eosinophils 0.4 0.0 - 0.4 10*3/uL CAN[facility]ER CHIEF PROCUREMENT OFFICER [facility] Absolute Basophils 0.0 0.0 - 0.1 10*3/uL [facility]ER CHIEF PROCUREMENT OFFICER [facility] 12/20/2024 8:36 AM ACCOUNTS RECEIVABLE PROCESSOR Sharad Huffman MD LAB SEND OUTS Final Result [facility] [place] [address] [place] [address], * ABO & RH TYPING (12/13/2024 8:44 AM ACCOUNTS RECEIVABLE PROCESSOR) ABO GROUPING O [facility] RH FACTOR NEGATIVE [facility] Comment: PLEASE NOTE: PRIOR RECORDS FOR THIS PATIENT'S ABO / RH TYPE ARE NOT AVAILABLE FOR ADDITIONAL VERIFICATION. Blood 12/13/2024 8:44 AM ACCOUNTS RECEIVABLE PROCESSOR Narrative [facility] - 12/14/2024 6:07 AM ACCOUNTS RECEIVABLE PROCESSOR TESTING PERFORMED AT: [] [facility], [address] [place] [address], [address], PHONE: [phone], TEXTURING MACHINE FIXER: CAM JOHNSON, PHD Release to patient->Immediate Sharad Huffman MD BLOOD BANK ORDERABLES Final Result [facility] Cancer [place] [address] [place] [address], * PET CT TUMOR IMAGING WHOLE BODY (11/12/2024 11:10 AM ACCOUNTS RECEIVABLE PROCESSOR) Anatomical Region Laterality Modality BODY N/A Computed Tomogra phy Narrative 11/12/2024 11:33 AM ACCOUNTS RECEIVABLE PROCESSOR EXAMINATION: PET CT TUMOR IMAGING WHOLE BODY [...] Months Insurance MEDICARE C [employer] Care Teams Bench Worker Relationship Specialty Start Date End Date Sima Mistry MD [address] [place] [id number] PCP - General Family Medicine 09/18/24 Sharad Huffman MD [address] [place] [id number] Consulting Physician Oncology 09/18/24
[2025-01-30 13:30] VITALS: BP 192/109; PULSE 76; RESP 16; TEMP 36.6; O2SAT 98
[2025-01-30] MEDS: hydrALAZINE HCL 50 MG TABLET PO (14:09)
[2025-01-30] MEDS: amLODIPine BESYLATE 10 MG TABLET PO (14:09)
[2025-01-30 14:50] VITALS: BP 174/120; PULSE 77; RESP 16; O2SAT 100
[2025-01-30 15:02] VITALS: BP 159/118
--- NOTE | 2025-01-30 15:04 | PC.NURSE ---
EDP Dr. Anderson made aware of pts BP of 159/118, no new orders at this time.
--- NOTE | 2025-01-30 15:42 | ED.FALL ---
HPI - Fall General Chief Complaint: Fall Stated Complaint: fall Time Seen by Provider: 01/30/25 11:50 History of Present Illness HPI Narrative: Patient presents here after falling, he was found at the group home and does not recall exactly what happened, does not think he hurt anything but he does have pain to his right lower leg. Denies pain anywhere else. Related Data Home Medications ?Medication ?Instructions ?Recorded ?Confirmed ?Last Taken ?Type acyclovir 400 mg tablet 400 mg PO .noon 09/29/24 09/29/24 09/28/24 History alprazolam 0.5 mg tablet 0.5 mg PO .q12 09/29/24 09/29/24 Unknown History amlodipine 10 mg tablet 10 mg PO .noon 09/29/24 09/29/24 09/28/24 History aspirin 325 mg tablet 325 mg PO .noon 09/29/24 09/29/24 09/28/24 History donepezil 10 mg tablet 10 mg PO HS 09/29/24 09/29/24 09/28/24 History escitalopram oxalate 5 mg tablet 5 mg PO .noon 09/29/24 09/29/24 09/28/24 History finasteride 5 mg tablet 5 mg PO .noon 09/29/24 09/29/24 09/28/24 History hydralazine 50 mg tablet 50 mg PO .COMPLEX 09/29/24 09/29/24 09/28/24 History levothyroxine 25 mcg tablet 25 mcg PO 0630 09/29/24 09/29/24 09/28/24 History lidocaine 5 % topical patch 1 patch transdermal Q24H 09/29/24 09/29/24 09/28/24 History lisinopril 20 mg tablet 20 mg PO .noon 09/29/24 09/29/24 09/28/24 History meclizine 25 mg tablet 25 mg PO TID PRN dizziness 09/29/24 09/29/24 Unknown History memantine 5 mg tablet 5 mg PO .noon 09/29/24 09/29/24 09/28/24 History nitroglycerin 0.4 mg sublingual 0.4 mg sublingual Q5M PRN chest 09/29/24 09/29/24 Unknown History tablet pain omeprazole 40 mg capsule,delayed 40 mg PO .noon 09/29/24 09/29/24 09/28/24 History release polyethylene glycol 3350 17 17 g PO .noon 09/29/24 09/29/24 09/28/24 History gram/dose oral powder ramelteon 8 mg tablet 8 mg PO HS 09/29/24 09/29/24 Unknown History rosuvastatin 20 mg tablet 20 mg PO .noon 09/29/24 09/29/24 09/28/24 History sennosides 8.6 mg-docusate sodium See Rx Instructions PO .COMPLEX 09/29/24 09/29/24 09/28/24 History 50 mg tablet (Stimulant Laxative Plus) tamsulosin 0.4 mg capsule 0.4 mg PO .COMPLEX 09/29/24 09/29/24 09/28/24 History zolpidem 5 mg tablet 5 mg PO HS 09/29/24 09/29/24 09/28/24 History Allergies Allergy/AdvReac Type Severity Reaction Status Date / Time No Known Allergies Allergy Verified 09/29/24 10:32 Review of Systems Review of Systems: All systems reviewed & are unremarkable except as noted in HPI and below [facility] Past Medical History Medical History Multiple myeloma s/p radiation tx and starting chemo soon per RN to RN report from facility GERD (gastroesophageal reflux disease) Arthritis HTN (hypertension) Normal pressure hydrocephalus Social History Social History Social History: Full code per assisted living documentation (no POLST) Had a Masters education Smoking status: Never smoker Alcohol intake: never Substance use: former Do You Feel Safe in your Home?: No Lack of Transportation: No Lack of Food: Never True Current Housing: Decline to Answer Concerned About Future Housing: Decline to Answer Difficulty Paying Gas/Electric Bills: Decline to Answer Difficulty Paying for Meds: Decline to Answer Currently Unemployed: Decline to Answer Education: Decline to Answer Difficulty w/ Childcare or Family Care: Decline to Answer Living arrangements: assisted living Additional living arrangements comments: [facility] Additional occupation/education comments: [employer] 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 EYES: EOMI, conjunctiva normal ENT: Hearing grossly intact LUNGS: Nonlabored breathing. HEART: [Regular rate and rhythm] ABD: [Soft], [nontender to palpation] EXT: Normal range of motion; bruising to right lower leg SKIN: Hematoma R lower leg NEURO: [Alert. No gross focal sensory or strength deficits.] Able to stand and ambulate from stretcher to stretcher PSYCH: Normal affect Course Vital Signs Vital signs: Vital Signs Temperature 98.1 F 01/30/25 10:16 Pulse Rate 77 01/30/25 10:16 Respiratory Rate 16 01/30/25 10:16 Blood Pressure 187/109 H 01/30/25 10:16 Pulse Oximetry 96 01/30/25 10:16 Temperature 97.8 F 01/30/25 13:30 Pulse Rate 77 01/30/25 14:50 Respiratory Rate 16 01/30/25 14:50 Blood Pressure 159/118 H 01/30/25 15:02 Pulse Oximetry 100 01/30/25 14:50 MDM - Fall MDM Narrative Medical decision making narrative: 79M presents s/p fall. Well appearing here, NAD, resting comfortably. Hematoma R leg w/o bony deformity; able to ambulate. Imaging unremarkable. Stable for dc back to NH w/ care instructions for bruising. Discharge Plan Discharge Clinical Impression: Contusion of leg Patient Disposition: [place] Assisted/Asst Living Condition: Stable Instructions: Contusion in Adults (ED), Fall Prevention (ED) Additional Instructions: Please follow up with your doctor; come back for any further issues. You can take tylenol for pain and use ice on your injury. Patient Language: Portuguese Prescriptions: No Action acyclovir 400 mg tablet 400 mg PO .noon alprazolam 0.5 mg tablet 0.5 mg PO .q12 amlodipine 10 mg tablet 10 mg PO .noon aspirin 325 mg tablet 325 mg PO .noon donepezil 10 mg tablet 10 mg PO HS escitalopram oxalate 5 mg tablet 5 mg PO .noon finasteride 5 mg tablet 5 mg PO .noon hydralazine 50 mg tablet 50 mg PO .COMPLEX Rx Instructions: 50 mg orally 12, 1600, 2000 with food; levothyroxine 25 mcg tablet 25 mcg PO 0630 lidocaine 5 % adhesive patch,medicated 1 patch transdermal Q24H lisinopril 20 mg tablet 20 mg PO .noon sennosides-docusate sodium [Stimulant Laxative Plus] 8.6-50 mg tablet See Rx Instructions PO .COMPLEX Rx Instructions: orally 1000 and 1600; meclizine 25 mg tablet 25 mg PO TID PRN (Reason: dizziness) memantine 5 mg tablet 5 mg PO .noon nitroglycerin 0.4 mg tablet, sublingual 0.4 mg sublingual Q5M PRN (Reason: chest pain) omeprazole 40 mg capsule,delayed release(DR/EC) 40 mg PO .noon polyethylene glycol 3350 17 gram/dose powder 17 g PO .noon ramelteon 8 mg tablet 8 mg PO HS rosuvastatin 20 mg tablet 20 mg PO .noon tamsulosin 0.4 mg capsule 0.4 mg PO .COMPLEX Rx Instructions: 0.4 mg orally 1200 and 1600; zolpidem 5 mg tablet 5 mg PO HS cyanocobalamin (vitamin B-12) 1,000 mcg/mL Solution See Rx Instructions .ROUTE .COMPLEX Qty: 10 0RF Rx Instructions: 1,000 mcg intramuscularly daily x 6 days then weekly x 1 month then monthly afterwards to continue ibuprofen 600 mg tablet 600 mg PO TID PRN (Reason: pain) Qty: 30 0RF acetaminophen 500 mg capsule 1,000 mg PO Q6H PRN (Reason: pain) Qty: 30 0RF Follow-up/Referrals: Fidelia,Sima Marlow MD [Primary Care Provider] -
[2025-01-30 15:51] VITALS: BP 174/95; PULSE 88; RESP 16; O2SAT 98
== END 2025-01-30 15:51 ==
PROVIDERS: Emergency Provider Emergency Medicine; PCP Student in an Organized Health Care Education/Training Program
DX: S80.11XA Contusion of right lower leg, initial encounter (principal); C90.00 Multiple myeloma not having achieved remission; I10 Essential (primary) hypertension; K21.9 Gastro-esophageal reflux disease without esophagitis; M19.90 Unspecified osteoarthritis, unspecified site; G91.2 (Idiopathic) normal pressure hydrocephalus; Z79.82 Long term (current) use of aspirin; Z79.899 Other long term (current) drug therapy; M50.30 Other cervical disc degeneration, unspecified cervical region; W19.XXXA Unspecified fall, initial encounter
CPT/HCPCS: 70450; 72125; 72170; 73590; 99284; A9270